=== PATIENT | male | born 1950 | race Hispanic/Latino ===

== ENCOUNTER 2017-06-12 14:48 | Inpatient (IN) | payer MEDICARE, MEDICAID ==
[2017-06-12] MEDS ORDERED: Vancomycin 1gm in NS 250ml 1 GM/250 ML BAG IVPB STA (15:32)
[2017-06-12] MEDS ORDERED: Piperacill/Tazo 4.5gm in NS 4.5 GM/100 ML BAG IVPB STA (15:32)
--- NOTE | 2017-06-12 15:38 | ED PDOC ---
Arrival/HPI - General Chief Complaint: Lower Extremity Problem/Injury Time Seen by Provider: 06/12/17 15:32 Historian: Patient - History of Present Illness Narrative History of Present Illness (Text): 06/12/17 15:36 pt p/w + 4 days onset of worsening foot/forefoot swelling/pain; pt with chronic foot/toe wounds under the care of Dr Manning (wound care) for few months. During routine evaluation today, expressed concern for patients wound today and instructed patient to come to ED for further eval/care/mgt; pt states over the last 4 days the pain is becoming worse with standing/movement, at most pain is 8 /10; pt at rest the pain is 3-4/10; pt states intermittently felt hot/cold/ sweaty; pt states no cp/sob/palpitations, no abd pain, no n/v, no numbness/ tingling, no urinary/bowel changes, no fall/trauma/sick contact, no travel; pt denied other complaint; pt is here for further eval. PCP: Dr Mckeon wound care/podiatry: Nigel Time/Duration: < week (4 days, but the right forefoot wound x months) Symptom Onset: Gradual Symptom Course: Worsening Quality: Tightness, Cramping Severity Level: 8, Severe Activities at Onset: Rest Context: Standing, Walking, Home Past Medical History - Provider Review Nursing Documentation Reviewed: Yes - Travel History Have you recently traveled outside [place] w/in the past 3 mons?: No - Past History Past History: No Previous - Infectious Disease Hx of Infectious Diseases: None - Cardiac Hx Hypertension: Yes - Pulmonary Hx Respiratory Disorders: No - HEENT Hx HEENT Disorder: No - Endocrine/Metabolic Hx Diabetes Mellitus Type 2: Yes - Genitourinary/Gynecological Hx Genitourinary Disorders: No - Psychiatric Hx Psychophysiologic Disorder: No Hx Substance Use: No - Surgical History Hx Orthopedic Surgery: Yes Other/Comment: BKA - Anesthesia Hx Anesthesia: Yes Hx Anesthesia Reactions: No Family/Social History - Physician Review Nursing Documentation Reviewed: Yes Family/Social History: No Known Family HX Smoking Status: Unknown If Ever Smoked Hx Alcohol Use: No Hx Substance Use: No Hx Substance Use Treatment: No Allergies/Home Meds Allergies/Adverse Reactions: Allergies tape Allergy (Uncoded 06/12/17 15:07) RASH Home Medications: Home Meds Medication Instructions Recorded Confirmed Aspirin [Ecotrin] 81 mg PO DAILY 06/12/17 06/12/17 Cholecalciferol (Vitamin D3) 2,000 unit PO DAILY 06/12/17 06/12/17 [Vitamin D3] Famotidine [Pepcid] 20 mg PO DAILY 06/12/17 06/12/17 Insulin Aspart/Insulin Aspar 100 units SC BID 06/12/17 06/12/17 [Novolog Mix 70/30 (70/30 units/ml)] Losartan/Hydrochlorothiazide 1 each PO DAILY 06/12/17 06/12/17 [Losartan-Hctz 100-12.5 mg Tab] Simvastatin [Zocor] 10 mg PO HS 06/12/17 06/12/17 Sitagliptin Phos/Metformin HCl 1 each PO DAILY 06/12/17 06/12/17 [Janumet 50-500 mg Tablet] Vitamin A Palmitate [Vitamin A] 10,000 unit PO QOTHERDAY 06/12/17 06/12/17 Review of Systems - Review of Systems Constitutional: Fatigue Eyes: Normal ENT: Normal Respiratory: Normal Cardiovascular: Normal Gastrointestinal: Normal Genitourinary Male: Normal Musculoskeletal: Other (right foot pain) Skin: Normal Neurological: Normal Endocrine: Normal Hemo/Lymphatic: Normal Physical Exam Vital Signs Reviewed: Yes Vital Signs Temp Pulse Resp BP Pulse Ox 06/12/17 16:27 100.6 F H 06/12/17 14:57 100.2 F H 102 H 20 136/65 96 Temperature: Febrile Blood Pressure: Normal Pulse: Tachycardic Respiratory Rate: Normal Appearance: Positive for: Well-Appearing, Uncomfortable, Other (alert/awake, GCS = 15, oriented x 3, NAD, cooperative, resting in bed, follows command with ease) Pain Distress: None Mental Status: Positive for: Alert and Oriented X 3 - Systems Exam Head: Present: Atraumatic, Normocephalic Pupils: Present: PERRL, Other (no nystagmus, no photophobia, sclera anicteric, visual field intact b/l) Extroacular Muscles: Present: EOMI Conjunctiva: Present: Normal Ears: Present: Normal Mouth: Present: Moist Mucous Membranes, Other (uvula/tongue are midline, no exudate/lesions, no drooling/stridor, intact dentitions) Pharnyx: Present: Normal Nose (External): Present: Atraumatic Nose (Internal): Present: Normal Inspection Neck: Present: Normal Range of Motion, Trachea Midline, Other (no step off, no nuchal rigidity, no meningeal signs). No: MIDLINE TENDERNESS Respiratory/Chest: Present: Clear to Auscultation, Good Air Exchange, Other ( CTA b/l, no w/r/r, no accessory muscle use noted, no tachypenia) Cardiovascular: Present: Regular Rate and Rhythm, Normal S1, S2. No: Murmurs Abdomen: Present: Normal Bowel Sounds, Other (well nourished male, no focal tenderness, no dickinson's sign, no mcburney's point tenderness) Back: Present: Normal Inspection, CVA Tenderness, Decubitus Ulcer. No: Midline Tenderness Upper Extremity: Present: Normal Inspection, Normal ROM, NORMAL PULSES, Neurovascularly Intact, Capillary Refill < 2s Lower Extremity: Present: Normal ROM, Capillary Refill < 2 s, Other (+ left BKA ; right forefoot swelling with skin erythema noted, + right 3rd toe/5th toe covered with bandages with distal end of the bandages with noted slight yellow discharge, no gross bleeding; no blisters/ulcerations/pustules noted, decr ROM; strength 5-/5 intact b/l) Neurological: Present: GCS=15, CN II-XII Intact, Speech Normal Skin: Present: Warm, Normal Color, Other (cap refill < 1sec, no ulcerations, no petechiae) Psychiatric: Present: Alert, Oriented x 3 Medical Decision Making ED Course and Treatment: 06/12/17 15:36 Impression: r/o sepsis, r/o infected toes/cellulitis i have consider all the differential diagnosis regarding pt's chief medical complaints/clinical findings, including but are not limited to: r/o sepsis, r/o cellulitis/infected toes A/P: right foot wound, fever - labs - iv - xray - cultures - observe - supportive care 06/12/17 16:59 pt is currently comfortable resting on the bed pt is made aware of his medical results agrees with admission I spoke with Dr Keller, second rigger for pt's PCP, made aware of pt's ED presentation, agrees with ED mgt/txt, agrees with admission paging pt's podiatrists/wound care specialists 06/12/17 17:[address] Manning, pt's wound care/podiatrists, agrees with ED mgt/txt, will continue his consult as patient is admitted to the hospital/with Dr Keller Re-evaluation Time: 16:59 Reassessment Condition: Improving,but remains with symptoms - Lab Interpretations Lab Results: 06/12/17 15:50 06/12/17 15:50 Lab Results 06/12/17 16:10: Urine Color Yellow, Urine Appearance Clear, Urine pH 6.0, Ur Specific [place] 1.020, Urine Protein Negative, Urine Glucose (UA) Negative, Urine Ketones Negative, Urine Blood Small H, Urine Nitrate Negative, Urine Bilirubin Negative, Urine Urobilinogen 0.2, Ur Leukocyte Esterase Negative, Urine RBC Pending, Urine WBC Pending 06/12/17 15:50: Sodium 139, Chloride 101, Potassium 4.1, Carbon Dioxide 30, Anion Gap 13, BUN 27 H, Creatinine 1.2, Est GFR ( Amer) > 60, Est GFR ( Non-Af Amer) > 60, Random Glucose 129 H, Calcium 9.4, Phosphorus 3.0, Magnesium 1.9, Total Bilirubin 0.6, AST 22, ALT 26, Alkaline Phosphatase 78, Total Protein 6.6, Albumin 3.5, Globulin 3.2, Albumin/Globulin Ratio 1.1 06/12/17 15:50: pO2 44, VBG pH 7.39, VBG pCO2 50.0, VBG HCO3 30.3 H, VBG Total CO2 31.8 H, VBG O2 Sat (Calc) 85.0 H, VBG Base Excess 4.2 H, VBG Potassium 4.2, Sodium 137.0, Chloride 103.0, Glucose 137 H, Lactate 0.9, FiO2 21.0, Venous Blood Potassium 4.2 06/12/17 15:50: WBC 9.8, RBC 4.60, Hgb 13.2 L, Hct 40.1 L, MCV 87.2, MCH 28.7, MCHC 32.9, RDW 13.7, Plt Count 150, MPV 11.2 H, Gran % 83.1 H, Lymph % (Auto) 8.0 L, [place] % (Auto) 7.4 H, Eos % (Auto) 1.3 L, Baso % (Auto) 0.2, Gran # 8.15 H , Lymph # (Auto) 0.8 L, [place] # (Auto) 0.7 H, Eos # (Auto) 0.1, Baso # (Auto) 0.02, ESR Pending I have reviewed the lab results: Yes Interpretation: Abnormal lab values (mildly elevated ESR/GLUC) - RAD Interpretation Narrative RAD Interpretations (Text): 06/12/17 17:11 no acute fx/dislocations noted; + DJD; no evidence of gas pockets (unlikely osteo) Radiology Orders: 06/12/17 15:34 FOOT RIGHT 3 VIEWS ROUTINE [RAD] Stat Church Worker: ED Physician, Radiologist - Medication Orders Current Medication Orders: Vancomycin HCl (Vancomycin 1gm) 1 gm in 250 mls @ 167 mls/hr IVPB STAT STA PRN Reason: Protocol Stop: 06/12/17 17:01 Last Admin: 06/12/17 16:29 Dose: 167 mls/hr eMAR Start Stop Document 06/12/17 16:29 MS (Rec: 06/12/17 16:29 MS [id number]) Intravenous Solution Start Date 06/12/17 Start Time 16:29 End Date 06/12/17 End time 18:00 Total Infusion Time 91 Discontinued Medications Acetaminophen (Tylenol 325mg Tab) 650 mg PO STAT STA Stop: 06/12/17 15:39 Last Admin: 06/12/17 16:27 Dose: 650 mg MAR Pain/Vitals Document 06/12/17 16:27 MS (Rec: 06/12/17 16:28 MS [id number]) Pain Reassessment Is This A Pain ReAssessment? No Sleep Is patient sleeping during reassessment? No Presence of Pain Presence of Pain No Vitals Temperature (97.6 F-99.6 F) 100.6 F Temperature Source Oral Piperacillin Sod/Tazobactam Sod (Zosyn 4.5 Gm In Ns 100ml) 4.5 gm in 100 mls @ 200 mls/hr IVPB STAT STA PRN Reason: Protocol Stop: 06/12/17 16:01 Last Admin: 06/12/17 15:40 Dose: 200 mls/hr eMAR Start Stop Document 06/12/17 15:40 MS (Rec: 06/12/17 15:55 MS [id number]) Intravenous Solution Start Date 06/12/17 Start Time 15:55 End Date 06/12/17 End time 16:25 Total Infusion Time 30 Disposition/Present on Arrival - Present on Arrival Any Indicators Present on Arrival: No History of DVT/PE: No History of Uncontrolled Diabetes: Yes Urinary Catheter: No History of Decub. Ulcer: No History Surgical Site Infection Following: Orthopedic Procedures - Disposition Have Diagnosis and Disposition been Completed?: Yes Diagnosis: Cellulitis in diabetic foot, Foot pain, PVD (peripheral vascular disease) Disposition: HOSPITALIZED Disposition Time: 17:00 Patient Plan: Admission Condition: STABLE Discharge Instructions (ExitCare): Cellulitis (ED) Referrals: Nicolas Gil DPM [Primary Care Provider] - Follow up with primary Forms: [employer] (Macedonian)
[2017-06-12 16:33] LABS: BASO # 0.02 K/mm3 (0.0-2.0); BASO % 0.2 % (0.0-3.0); EOS # 0.1 (0.0-0.7); EOS % 1.3 % (1.5-5.0); GRAN # 8.15 (1.4-6.5); GRAN % 83.1 % (50.0-68.0); HEMOGLOBIN 13.2 g/dL (14.0-18.0); LYMPH # 0.8 (1.2-3.4); MEAN CELL VOLUME 87.2 fl (80.0-105.0); MEAN CORPUSCULAR HEMOGLOBIN 28.7 pg (25.0-35.0); MEAN CORPUSCULAR HGB CONC 32.9 g/dl (31.0-37.0); MEAN PLATELET VOLUME 11.2 fl (7.0-11.0); MONO # 0.7 (0.1-0.6); MONO % 7.4 % (1.0-6.0); RBC 4.6 10^6/uL (3.5-6.1); RED CELL DISTRIBUTION WIDTH 13.7 % (11.5-14.5); VENOUS BLOOD GAS BASE EXCESS 4.2 mmol/L (0.0-2.0); VENOUS BLOOD GAS PO2 44 mm/Hg (30-55); VENOUS BLOOD PH 7.39 (7.32-7.43); WHITE BLOOD COUNT 9.8 10^3/ul (4.5-11.0)
[2017-06-12 16:33] LABS: URINE BILIRUBIN NEGATIVE (NEGATIVE); URINE BLOOD SMALL (NEGATIVE); URINE GLUCOSE (UA) NEGATIVE (NEGATIVE); URINE LEUKOCYTE ESTERASE NEGATIVE Leu/uL (NEGATIVE); URINE PROTEIN NEGATIVE mg/dL (<30 mg/dL); URINE UROBILINOGEN 0.2 E.U./dL (<1 E.U./dL)
[2017-06-12 16:38] LABS: URINE APPEARANCE CLEAR (CLEAR); URINE COLOR YELLOW (YELLOW)
[2017-06-12 16:43] LABS: ALB/GLOB RATIO 1.1 (1.1-1.8); ALBUMIN 3.5 g/dL (3.0-4.8); ALT/SGPT 26 U/L (7-56); AST/SGOT 22 U/L (17-59); BLOOD UREA NITROGEN 27 mg/dL (7-21); CALCIUM 9.4 mg/dL (8.4-10.5); GFR AFRICAN-AMERICAN > 60; GFR NON-AFRICAN AMERICAN > 60
[2017-06-12 17:12] LABS: URINE EPITHELIAL CELLS 0 - 2 /hpf (0-5); URINE WBC 0 - 2 /hpf (0-6)
[2017-06-12] MEDS ORDERED: Non Formulary Medication (Insulin Aspart/Insulin Aspar [Novolog Mix 70/30 (70/30 Units/Ml) SC SCH (18:30)
[2017-06-12 20:35] VITALS: BMI 23.3
[2017-06-12] MEDS: Piperacillin/Tazobact 3.375 gm 100 ML IVPB SCH (21:40)
[2017-06-12] MEDS ORDERED: SIMVASTATIN 10 MG PO SCH (22:00)
[2017-06-12] MEDS: Insulin Lispro (humaLOG) MEDIUM Coverage SC SCH (22:35)
[2017-06-12] MEDS: Insulin Lispro (humaLOG) MIX 75/25(10 ml) SC SCH (22:40)
--- NOTE | 2017-06-13 02:34 | HP ---
HISTORY OF PRESENT ILLNESS: The patient is 66 years old who is sent to emergency room by Dr. Gil when he came in the wound center. Patient has been going to wound care center for a couple of months, but his wound has been getting worse, so he is being admitted for IV antibiotic, possible angioplasty for PVD. Patient states, for the last 3 to 4 days, the pain has been getting worse especially when he walks or stands. Denies any fever or chills. No nausea or vomiting. No diarrhea. No abdominal pain. No urine or bowel problems. PAST MEDICAL HISTORY: 1. Significant for insulin-dependent diabetes. 2. Severe peripheral vascular disease. 3. Hypertension. ALLERGIES: HE IS ALLERGIC TO TAPE. MEDICATIONS AT HOME: He is on vitamin D, aspirin 81 daily, simvastatin 10 mg daily, losartan 100 mg daily, insulin NovoLog 100 units twice a day, Pepcid 20 mg daily, and metformin 50/500 b.i.d. SOCIAL HISTORY: He lives with his family. Denies smoking, drinking, or alcohol use. REVIEW OF SYSTEMS: Significant for right foot pain and swelling. PHYSICAL EXAMINATION: GENERAL: He is awake, alert, oriented, and communicative. VITAL SIGNS: Temperature 100.2, pulse 102, respirations 20, blood pressure 136/65. LUNGS: Bilateral good air flow. No rhonchi or crackles. HEART: S1, S2 audible. ABDOMEN: Soft, nontender. No rebound. No guarding. NEUROLOGIC: He is awake, alert, oriented, able to communicate. EXTREMITIES: His right foot is in the dressing. LABORATORY DATA: WBC 9.8, hemoglobin 13, hematocrit 40, platelets 150. Chemistry: Sodium 139, potassium 4.1, chloride 101, CO2 of 30, BUN 27, creatinine 1.2, blood sugar of 129. LFTs are within normal limits. Urinalysis is unremarkable. ASSESSMENT: 1. Right foot cellulitis. 2. Insulin-dependent diabetes. 3. Hypertension. 4. Hyperlipidemia. PLAN: The patient is going to be admitted. We will start him on IV antibiotics. Resume his medication and I will get Dr. Gil for consult. I will get Dr. [place] consulted too and we will request Dr. Murcia to evaluate the patient. Berhane Keller MD [facility] # [id number]
[2017-06-13] MEDS: Piperacillin/Tazobact 3.375 gm 100 ML IVPB SCH ×3 (05:36→22:42)
[2017-06-13 07:30] LABS: BASO # 0.01 K/mm3 (0.0-2.0); BASO % 0.1 % (0.0-3.0); EOS # 0.3 (0.0-0.7); EOS % 3.9 % (1.5-5.0); GRAN # 6.15 (1.4-6.5); GRAN % 74.8 % (50.0-68.0); HEMOGLOBIN 11.5 g/dL (14.0-18.0); LYMPH # 1.1 (1.2-3.4); LYMPH % 12.9 % (22.0-35.0); MEAN CELL VOLUME 86.4 fl (80.0-105.0); MEAN CORPUSCULAR HEMOGLOBIN 27.4 pg (25.0-35.0); MEAN CORPUSCULAR HGB CONC 31.8 g/dl (31.0-37.0); MEAN PLATELET VOLUME 11.5 fl (7.0-11.0); MONO # 0.7 (0.1-0.6); MONO % 8.3 % (1.0-6.0); RBC 4.19 10^6/uL (3.5-6.1); RED CELL DISTRIBUTION WIDTH 13.6 % (11.5-14.5); WHITE BLOOD COUNT 8.2 10^3/ul (4.5-11.0)
[2017-06-13] MEDS: Insulin Lispro (humaLOG) MEDIUM Coverage SC SCH ×3 (07:34→22:43)
[2017-06-13 08:00] LABS: ALBUMIN 3.1 g/dL (3.0-4.8); ALT/SGPT 27 U/L (7-56); AST/SGOT 20 U/L (17-59); BLOOD UREA NITROGEN 22 mg/dL (7-21); CALCIUM 8.9 mg/dL (8.4-10.5); GFR AFRICAN-AMERICAN > 60; GFR NON-AFRICAN AMERICAN > 60
[2017-06-13 08:01] LABS: FREE T4 1.14 ng/dL (0.78-2.19)
--- NOTE | 2017-06-13 08:27 | RAD ---
PROCEDURE: Right Foot Radiographs. HISTORY: r/o osteo, r/o fx COMPARISON: None. FINDINGS: BONES: There has been amputation of the tip of the 3rd toe. There is no evidence of acute osteomyelitis JOINTS: Normal. SOFT TISSUES: Normal. OTHER FINDINGS: None. IMPRESSION: No acute findings
[2017-06-13] MEDS: Vancomycin 1gm in NS 250ml 1 GM/250 ML BAG IVPB SCH ×2 (08:40→18:20)
[2017-06-13] MEDS ORDERED: LOSARTAN PO SCH ×2 (10:00)
[2017-06-13] MEDS ORDERED: SITAGLIPTIN PHOS PO SCH (10:00)
[2017-06-13] MEDS ORDERED: [UNRECOGNIZED DRUG - OTHER] PO SCH (10:00)
[2017-06-13] MEDS ORDERED: [UNRECOGNIZED DRUG - OTHER] PO SCH (10:00)
[2017-06-13] MEDS ORDERED: METFORMIN HCL PO SCH (10:00)
[2017-06-13] MEDS ORDERED: HYDROCHLOROTHIAZIDE PO SCH ×2 (10:00)
[2017-06-13] MEDS ORDERED: [UNRECOGNIZED DRUG - OTHER] PO SCH (10:00)
[2017-06-13] MEDS: Insulin Lispro (humaLOG) MIX 75/25(10 ml) SC SCH ×2 (10:43→22:42)
--- NOTE | 2017-06-13 14:09 | PN ---
DATE: SUBJECTIVE: The patient is 66-year-old, seen and examined, doing well, sitting in chair. No nausea, vomiting or diarrhea. OBJECTIVE: VITAL SIGNS: Had fever of 100.6 yesterday, afebrile today, pulse 78, respirations 20, blood pressure 125/66. LUNGS: Bilateral good airflow. No rhonchi or crackle. HEART: S1, S2, audible. ABDOMEN: Soft, nontender. No rebound. No guarding. NEUROLOGIC: Patient is awake, alert, oriented, communicative. LABORATORY DATA: WBC is 8.2, hemoglobin 11.5, hematocrit 36.2, platelets 141. Chemistry: Sodium 139, potassium 3.7, chloride 103, CO2 29, BUN 22, creatinine 1.2, blood sugar of 180. ESR is 75. Urinalysis is unremarkable. ASSESSMENT: 1. Insulin-dependent diabetes. 2. Severe peripheral vascular disease. 3. Status post left below-knee amputation. 4. Right forefoot cellulitis. 5. Hyperlipidemia. PLAN: Currently patient is on Zosyn. Patient is on vancomycin. Local wound care is being done by Dr. Gil. Request Dr. Rosa for Cardiology evaluation for possible right leg angioplasty. Dr. Davis will also be consulted for vascular intervention. Berhane Keller MD
--- NOTE | 2017-06-13 15:04 | CP.PCM.CON ---
<Thomas Zamora - Last Filed: 06/13/17 15:37> History of Present Illness - History of Present Illness History of Present Illness: Podiatry consult note- Dr. Zeng 66 y.o male with PMH including DM with podiatry consult for right foot ulcerations. Patient is known to wound care and Dr. Gil. 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 Patient reports that 4 days ago he noticed swelling to his right foot. He reports the right foot felt sore. Worse with ambulating. Patient reports he does a lot of walking. Patient denies nausea, vomiting, shortness of breath, chest pain or chills. Reports did not know that he has a right 5th digit ulceration. Past Patient History - Infectious Disease Hx of Infectious Diseases: None - Past Social History Smoking Status: Former Smoker - CARDIAC Hx Hypertension: Yes - PULMONARY Hx Respiratory Disorders: No - HEENT Hx HEENT Problems: No - ENDOCRINE/METABOLIC Hx Diabetes Mellitus Type 2: Yes - MUSCULOSKELETAL/RHEUMATOLOGICAL Hx Falls: Yes - GENITOURINARY/GYNECOLOGICAL Hx Genitourinary Disorders: No - PSYCHIATRIC Hx Psychophysiologic Disorder: No Hx Substance Use: No - SURGICAL HISTORY Hx Orthopedic Surgery: Yes Other/Comment: BKA - ANESTHESIA Hx Anesthesia: Yes Hx Anesthesia Reactions: No Meds Allergies/Adverse Reactions: Allergies Allergy/AdvReac Type Severity Reaction Status Date / Time tape Allergy RASH Uncoded 06/12/17 15:07 - Medications Medications: Current Medications Aspirin (Ecotrin) 81 mg PO DAILY [facility] Last Admin: 06/13/17 10:29 Dose: 81 mg Atorvastatin Calcium (Lipitor) 10 mg PO HS [facility] Last Admin: 06/12/17 21:41 Dose: 10 mg Famotidine (Pepcid) 20 mg PO DAILY [facility] Last Admin: 06/13/17 10:30 Dose: 20 mg Hydrochlorothiazide (Microzide) 12.5 mg PO DAILY [facility] Last Admin: 06/13/17 10:29 Dose: 12.5 mg Piperacillin Sod/Tazobactam Sod (Zosyn 3.375 In Ns 100ml) 100 mls @ 200 mls/hr IVPB Q8 [facility] PRN Reason: Protocol Stop: 06/19/17 22:01 Last Admin: 06/13/17 13:33 Dose: 200 mls/hr Vancomycin HCl (Vancomycin 1gm) 1 gm in 250 mls @ 167 mls/hr IVPB Q12H [facility] PRN Reason: Protocol Last Admin: 06/13/17 08:40 Dose: 167 mls/hr Insulin Human Lispro (Humalog Med) 0 units SC ACHS [facility] PRN Reason: Protocol Last Admin: 06/13/17 12:45 Dose: 1 units Insulin Lispro Protam/Lispro Human (Humalog Mix 75/25) 30 units SC QAM [facility] Last Admin: 06/13/17 10:43 Dose: 30 units Insulin Lispro Protam/Lispro Human (Humalog Mix 75/25) 20 units SC HS [facility] Last Admin: 06/12/17 22:40 Dose: 20 units Losartan Potassium (Cozaar) 100 mg PO DAILY [facility] Last Admin: 06/13/17 10:29 Dose: 100 mg Metformin HCl (Glucophage) 500 mg PO DAILY [facility] Last Admin: 06/13/17 10:29 Dose: 500 mg Metoprolol Tartrate (Lopressor) 25 mg PO BID [facility] Sitagliptin Phosphate (Januvia) 50 mg PO DAILY [facility] Last Admin: 06/13/17 10:29 Dose: 50 mg Physical Exam - Constitutional Appears: Well, Non-toxic, No Acute Distress - Extremities Exam Extremities exam: Negative for: calf tenderness Additional comments: Vasc: DP and PT nonpalpable, temperature cool to cool, edema noted to the right LE, CFT delayed to the digits Ortho: pain and tenderness with palpation to the entire right foot, more sensitive surrounding ulcerations Neuro: protective and gross sensation diminished Derm: ulceration located on the plantar aspect of right 3rd digit measuring approximately 2 x 2 x.1 and ulceration located on the medial aspect of the 5th digit measuring 1.5 x 1.5 x .1, all wound base is fibrotic/granular with serous drainage noted from ulceration, no probe to bone, no undermining, and no tunneling, erythema noted to the surrounding periwound - Neurological Exam Neurological exam: Alert, Oriented x3 - Psychiatric Exam Psychiatric exam: Normal Affect, Normal Mood Results - Vital Signs Recent Vital Signs: Last Vital Signs Temp 98.4 F 06/13/17 08:38 Pulse 78 06/13/17 08:38 Resp 20 06/13/17 08:38 BP 125/66 06/13/17 08:38 Pulse Ox 99 06/13/17 08:38 - Labs Result Diagrams: 06/13/17 07:00 06/13/17 07:00 Labs: Laboratory Results - last 24 hr 06/12/17 06/12/17 06/13/17 20:37 22:14 07:00 WBC 8.2 RBC 4.19 Hgb 11.5 L Hct 36.2 L MCV 86.4 MCH 27.4 MCHC 31.8 RDW 13.6 Plt Count 141 MPV 11.5 H Gran % 74.8 H Lymph % (Auto) 12.9 L [place] % (Auto) 8.3 H Eos % (Auto) 3.9 Baso % (Auto) 0.1 Gran # 6.15 Lymph # (Auto) 1.1 L [place] # (Auto) 0.7 H Eos # (Auto) 0.3 Baso # (Auto) 0.01 Sodium Potassium Chloride Carbon Dioxide Anion Gap BUN Creatinine Est GFR ( Amer) Est GFR (Non-Af Amer) POC Glucose (mg/dL) 71 145 H Random Glucose Calcium Total Bilirubin AST ALT Alkaline Phosphatase Total Protein Albumin Globulin Albumin/Globulin Ratio Free T4 TSH 3rd Generation 06/13/17 06/13/17 06/13/17 07:00 07:00 07:25 WBC RBC Hgb Hct MCV MCH MCHC RDW Plt Count MPV Gran % Lymph % (Auto) [place] % (Auto) Eos % (Auto) Baso % (Auto) Gran # Lymph # (Auto) [place] # (Auto) Eos # (Auto) Baso # (Auto) Sodium 139 Potassium 3.7 Chloride 103 Carbon Dioxide 29 Anion Gap 11 BUN 22 H Creatinine 1.2 Est GFR ( Amer) > 60 Est GFR (Non-Af Amer) > 60 POC Glucose (mg/dL) 140 H Random Glucose 130 H Calcium 8.9 Total Bilirubin 0.9 AST 20 ALT 27 Alkaline Phosphatase 62 Total Protein 6.0 Albumin 3.1 Globulin 3.0 Albumin/Globulin Ratio 1.0 L Free T4 1.14 TSH 3rd Generation 1.50 06/13/17 11:28 WBC RBC Hgb Hct MCV MCH MCHC RDW Plt Count MPV Gran % Lymph % (Auto) [place] % (Auto) Eos % (Auto) Baso % (Auto) Gran # Lymph # (Auto) [place] # (Auto) Eos # (Auto) Baso # (Auto) Sodium Potassium Chloride Carbon Dioxide Anion Gap BUN Creatinine Est GFR ( Amer) Est GFR (Non-Af Amer) POC Glucose (mg/dL) 180 H Random Glucose Calcium Total Bilirubin AST ALT Alkaline Phosphatase Total Protein Albumin Globulin Albumin/Globulin Ratio Free T4 TSH 3rd Generation Assessment & Plan - Assessment and Plan (Free Text) Assessment: 66 y.o male with PMH including DM with right foot non healing ulcerations. Plan: Patient examined and evaluated with attending at bedside Discussed plan in detail with attending Charts, labs, vitals reviewed Cleansed ulcerations with saline, dressed maxosorb, and paper tape. Patient reports no allergies to paper tape but other tapes X-ray shows no acute OM Vascular consult appreciated Resting ABIs right .64 on 04/25/17 -left BKA Reordered ABIs ESR in the AM Ordered MRI to r/o OM Wound culture taken- pending results c/w abx Podiatry will continue to follow while in house <Beatriz Zeng - Last Filed: 06/16/17 15:57> Meds - Medications Medications: Current Medications Aspirin (Ecotrin) 81 mg PO DAILY [facility] Last Admin: 06/16/17 09:28 Dose: 81 mg Atorvastatin Calcium (Lipitor) 10 mg PO HS [facility] Last Admin: 06/15/17 21:45 Dose: 10 mg Famotidine (Pepcid) 20 mg PO DAILY [facility] Last Admin: 06/16/17 09:28 Dose: 20 mg Hydrochlorothiazide (Microzide) 12.5 mg PO DAILY [facility] Last Admin: 06/16/17 09:28 Dose: 12.5 mg Piperacillin Sod/Tazobactam Sod (Zosyn 3.375 In Ns 100ml) 100 mls @ 200 mls/hr IVPB Q8 [facility] PRN Reason: Protocol Stop: 06/19/17 22:01 Last Admin: 06/16/17 13:39 Dose: 200 mls/hr Vancomycin HCl (Vancomycin 1gm) 1 gm in 250 mls @ 167 mls/hr IVPB Q12H [facility] PRN Reason: Protocol Last Admin: 06/16/17 06:18 Dose: 167 mls/hr Insulin Human Lispro (Humalog Med) 0 units SC ACHS [facility] PRN Reason: Protocol Last Admin: 06/16/17 11:39 Dose: Not Given Insulin Lispro Protam/Lispro Human (Humalog Mix 75/25) 30 units SC QAM [facility] Last Admin: 06/16/17 09:31 Dose: Not Given Insulin Lispro Protam/Lispro Human (Humalog Mix 75/25) 20 units SC HS [facility] Last Admin: 06/15/17 22:13 Dose: 20 units Losartan Potassium (Cozaar) 100 mg PO DAILY [facility] Last Admin: 06/16/17 09:29 Dose: 100 mg Metformin HCl (Glucophage) 500 mg PO DAILY [facility] Last Admin: 06/16/17 09:28 Dose: 500 mg Metoprolol Tartrate (Lopressor) 25 mg PO BID [facility] Last Admin: 06/16/17 09:28 Dose: 25 mg Oxycodone/Acetaminophen (Percocet 5/325 Mg Tab) 1 tab PO Q6H [facility] PRN Reason: Pain, moderate (4-7) Stop: 06/17/17 13:38 Last Admin: 06/16/17 14:42 Dose: 1 tab Sitagliptin Phosphate (Januvia) 50 mg PO DAILY [facility] Last Admin: 06/16/17 09:28 Dose: 50 mg Results - Vital Signs Recent Vital Signs: Last Vital Signs Temp 97.8 F 06/16/17 06:00 Pulse 64 06/16/17 09:28 Resp 20 06/16/17 06:00 BP 125/68 06/16/17 09:28 Pulse Ox 95 06/16/17 06:00 - Labs Result Diagrams: 06/13/17 07:00 06/13/17 07:00 Labs: Laboratory Results - last 24 hr 06/15/17 06/15/17 06/16/17 16:23 21:52 02:08 POC Glucose (mg/dL) 149 H 201 H 141 H 06/16/17 06/16/17 08:17 11:20 POC Glucose (mg/dL) 103 153 H Attending/Attestation - Attestation I have personally seen and examined this patient.: Yes I have fully participated in the care of the patient.: Yes I have reviewed all pertinent clinical information: Yes
--- NOTE | 2017-06-13 15:09 | CP.PCM.CON ---
History of Present Illness - History of Present Illness History of Present Illness: Surgery Consult Note: Reason for consult: PVD 66 M with PMH left BKA, PVD, DM2, HTN, presents for right lower extremity ulceration. Pt states that it has been ongoing for past 2-3 months. He states that he was given orthopedic shoes to wear, which might have been too small for him. It then gave him an ulceration at right 5th toe and 3rd toe. Reports that his wounds were being treated outpt with Podiatry, finished a course of antibiotics (does not remember name), and the ulcers were partially healing. Pt also underwent an angiogram of right leg with Dr [place] 3-4 weeks ago, and reports that he said that pt "needed a distal bypass surgery." Pt was to follow up with Dr Praneeth pathak after clearance from Cardio. However, for past few days prior to arrival to [facility], he reports that right foot pain and swelling got worse , and he had difficulty ambulating on it, requiring him to come to ED. Reports mildly decreased sensation and claudication, but states that it chronic. Denies fever, chills, nausea, vomiting, cough, cp, sob, abdominal pain, wound discharge, loss of motor strength. BRYN (04/2017) showed moderately abnormal right BRYN at rest. 12 point ROS obtained and negative, except as per HPI. PCP: Dr Mckeon PMH: DM2 - insulin dependent, Severe PVD, HTN PSH: left BKA (5 years ago at [facility]) - has left leg prosthesis , broken jaw many years ago All: tape - rash FH: denies SH: lives with family. Uses wheelchair or cane at home. Denies current smoking, drinking, alcohol use. Previously a cigar smoker. Home meds: See MAR Past Patient History - Infectious Disease Hx of Infectious Diseases: None - Past Social History Smoking Status: Former Smoker - CARDIAC Hx Hypertension: Yes - PULMONARY Hx Respiratory Disorders: No - HEENT Hx HEENT Problems: No - ENDOCRINE/METABOLIC Hx Diabetes Mellitus Type 2: Yes - MUSCULOSKELETAL/RHEUMATOLOGICAL Hx Falls: Yes - GENITOURINARY/GYNECOLOGICAL Hx Genitourinary Disorders: No - PSYCHIATRIC Hx Psychophysiologic Disorder: No Hx Substance Use: No - SURGICAL HISTORY Hx Orthopedic Surgery: Yes Other/Comment: BKA - ANESTHESIA Hx Anesthesia: Yes Hx Anesthesia Reactions: No Meds Allergies/Adverse Reactions: Allergies Allergy/AdvReac Type Severity Reaction Status Date / Time tape Allergy RASH Uncoded 06/12/17 15:07 - Medications Medications: Current Medications Aspirin (Ecotrin) 81 mg PO DAILY [facility] Last Admin: 06/13/17 10:29 Dose: 81 mg Atorvastatin Calcium (Lipitor) 10 mg PO HS [facility] Last Admin: 06/12/17 21:41 Dose: 10 mg Famotidine (Pepcid) 20 mg PO DAILY [facility] Last Admin: 06/13/17 10:30 Dose: 20 mg Hydrochlorothiazide (Microzide) 12.5 mg PO DAILY [facility] Last Admin: 06/13/17 10:29 Dose: 12.5 mg Piperacillin Sod/Tazobactam Sod (Zosyn 3.375 In Ns 100ml) 100 mls @ 200 mls/hr IVPB Q8 [facility] PRN Reason: Protocol Stop: 06/19/17 22:01 Last Admin: 06/13/17 13:33 Dose: 200 mls/hr Vancomycin HCl (Vancomycin 1gm) 1 gm in 250 mls @ 167 mls/hr IVPB Q12H [facility] PRN Reason: Protocol Last Admin: 06/13/17 08:40 Dose: 167 mls/hr Insulin Human Lispro (Humalog Med) 0 units SC ACHS [facility] PRN Reason: Protocol Last Admin: 06/13/17 12:45 Dose: 1 units Insulin Lispro Protam/Lispro Human (Humalog Mix 75/25) 30 units SC QAM [facility] Last Admin: 06/13/17 10:43 Dose: 30 units Insulin Lispro Protam/Lispro Human (Humalog Mix 75/25) 20 units SC HS [facility] Last Admin: 06/12/17 22:40 Dose: 20 units Losartan Potassium (Cozaar) 100 mg PO DAILY [facility] Last Admin: 06/13/17 10:29 Dose: 100 mg Metformin HCl (Glucophage) 500 mg PO DAILY [facility] Last Admin: 06/13/17 10:29 Dose: 500 mg Metoprolol Tartrate (Lopressor) 25 mg PO BID [facility] Sitagliptin Phosphate (Januvia) 50 mg PO DAILY [facility] Last Admin: 06/13/17 10:29 Dose: 50 mg Physical Exam - Constitutional Appears: Non-toxic, No Acute Distress - Head Exam Head Exam: ATRAUMATIC, NORMOCEPHALIC - Eye Exam Eye Exam: EOMI, PERRL. absent: Conjunctival injection, Nystagmus, Scleral icterus Pupil Exam: NORMAL ACCOMODATION, PERRL. absent: Fixed, Irregular, Miosis, Unequal - ENT Exam ENT Exam: Mucous Membranes Moist - Neck Exam Neck exam: Positive for: Full Rom - Respiratory Exam Respiratory Exam: Clear to Auscultation Bilateral, NORMAL BREATHING PATTERN. absent: Rales, Rhonchi, Wheezes - Cardiovascular Exam Cardiovascular Exam: RRR, +S1, +S2. absent: Systolic Murmur - GI/Abdominal Exam GI & Abdominal Exam: Normal Bowel Sounds, Soft. absent: Distended, Guarding, Rebound, Rigid, Tenderness - Extremities Exam Extremities exam: Positive for: tenderness. Negative for: calf tenderness Additional comments: Right Lower extremity: right posterior tibial and dorsalis pedis pulses present (using doppler). Right popliteal and femoral pulse palpable. Left femoral pulse present (using doppler). strength 5/5, sensation decreased (compared to upper right foot). mild discoloration noted of right lower foot. - Expanded Lower Extremities Exam Right Foot/Toe exam: erythema, full ROM, swelling (mild), tenderness (mild TTP on right foot, delphine 3rd and 5th digit). absent: crepitus, laceration, puncture wound Neuro vacular tendon exam: absent: extremity cold to touch, motor deficit - Back Exam Back exam: NORMAL INSPECTION - Neurological Exam Neurological exam: Alert, Oriented x3 - Psychiatric Exam Psychiatric exam: Normal Affect, Normal Mood - Skin Skin Exam: Dry, Warm Results - Vital Signs Recent Vital Signs: Last Vital Signs Temp 98.4 F 06/13/17 08:38 Pulse 78 06/13/17 08:38 Resp 20 06/13/17 08:38 BP 125/66 06/13/17 08:38 Pulse Ox 99 06/13/17 08:38 - Labs Result Diagrams: 06/13/17 07:00 06/13/17 07:00 Labs: Laboratory Results - last 24 hr 06/12/17 06/12/17 06/13/17 20:37 22:14 07:00 WBC 8.2 RBC 4.19 Hgb 11.5 L Hct 36.2 L MCV 86.4 MCH 27.4 MCHC 31.8 RDW 13.6 Plt Count 141 MPV 11.5 H Gran % 74.8 H Lymph % (Auto) 12.9 L Sutter % (Auto) 8.3 H Eos % (Auto) 3.9 Baso % (Auto) 0.1 Gran # 6.15 Lymph # (Auto) 1.1 L Sutter # (Auto) 0.7 H Eos # (Auto) 0.3 Baso # (Auto) 0.01 Sodium Potassium Chloride Carbon Dioxide Anion Gap BUN Creatinine Est GFR ( Amer) Est GFR (Non-Af Amer) POC Glucose (mg/dL) 71 145 H Random Glucose Calcium Total Bilirubin AST ALT Alkaline Phosphatase Total Protein Albumin Globulin Albumin/Globulin Ratio Free T4 TSH 3rd Generation 06/13/17 06/13/17 06/13/17 07:00 07:00 07:25 WBC RBC Hgb Hct MCV MCH MCHC RDW Plt Count MPV Gran % Lymph % (Auto) Sutter % (Auto) Eos % (Auto) Baso % (Auto) Gran # Lymph # (Auto) Sutter # (Auto) Eos # (Auto) Baso # (Auto) Sodium 139 Potassium 3.7 Chloride 103 Carbon Dioxide 29 Anion Gap 11 BUN 22 H Creatinine 1.2 Est GFR ( Amer) > 60 Est GFR (Non-Af Amer) > 60 POC Glucose (mg/dL) 140 H Random Glucose 130 H Calcium 8.9 Total Bilirubin 0.9 AST 20 ALT 27 Alkaline Phosphatase 62 Total Protein 6.0 Albumin 3.1 Globulin 3.0 Albumin/Globulin Ratio 1.0 L Free T4 1.14 TSH 3rd Generation 1.50 06/13/17 11:28 WBC RBC Hgb Hct MCV MCH MCHC RDW Plt Count MPV Gran % Lymph % (Auto) Sutter % (Auto) Eos % (Auto) Baso % (Auto) Gran # Lymph # (Auto) Sutter # (Auto) Eos # (Auto) Baso # (Auto) Sodium Potassium Chloride Carbon Dioxide Anion Gap BUN Creatinine Est GFR ( Amer) Est GFR (Non-Af Amer) POC Glucose (mg/dL) 180 H Random Glucose Calcium Total Bilirubin AST ALT Alkaline Phosphatase Total Protein Albumin Globulin Albumin/Globulin Ratio Free T4 TSH 3rd Generation Assessment & Plan - Assessment and Plan (Free Text) Assessment: 66 year old male with PMH PVD, DM2, HTN, presents for right foot ulceration/ cellulitis. Vascular surgery consulted for PVD: - Recommend arterial duplex - BRYN (from 04/2017) shows moderately abnormal right BRYN at rest. Right popliteal, trifurcation, and/or tibial disease. Recommend further follow up with CTA or conventional arteriogram. - recommend tight glyemic control, HTN management - C/w statin to reduce risk of CV disease - Recommend Cilostazol - Cont with IV abx - Rest of management as per primary team - Further recs per Dr Dacosta. - Date & Time Date: 06/13/17 Time: 16:33
--- NOTE | 2017-06-13 16:27 | CP.PCM.CON ---
History of Present Illness - History of Present Illness History of Present Illness: 66 year old male with PMH of HTN, DM, S/P left BKA was sent in by his Plate Sensitizer because of worsening right foot wound which has been there since 2 months ago and has been seeing his Plate Sensitizer regularly. He states that there is clear discharge from the wound from the 3rd toe. He denies animal contact, no walking barefoot, no soaking his feet in water. He denies specific trauma to the foot. He states that he has bad circulation on his right leg. He denies fever or chills, no nausea or vomiting, no chest pain, no SOB, no headache or dizziness, no abdominal pain, no diarrhea, no dysuria. Infectious Diseases consult is requested to further evaluate and manage. Review of Systems - Review of Systems All systems: reviewed and no additional remarkable complaints except (as per HPI ) Past Patient History - Infectious Disease Hx of Infectious Diseases: None - Past Social History Smoking Status: Former Smoker - CARDIAC Hx Hypertension: Yes - PULMONARY Hx Respiratory Disorders: No - HEENT Hx HEENT Problems: No - ENDOCRINE/METABOLIC Hx Diabetes Mellitus Type 2: Yes - MUSCULOSKELETAL/RHEUMATOLOGICAL Hx Falls: Yes - GENITOURINARY/GYNECOLOGICAL Hx Genitourinary Disorders: No - PSYCHIATRIC Hx Psychophysiologic Disorder: No Hx Substance Use: No - SURGICAL HISTORY Hx Orthopedic Surgery: Yes Other/Comment: BKA - ANESTHESIA Hx Anesthesia: Yes Hx Anesthesia Reactions: No Meds Allergies/Adverse Reactions: Allergies Allergy/AdvReac Type Severity Reaction Status Date / Time tape Allergy RASH Uncoded 06/12/17 15:07 - Medications Medications: Current Medications Aspirin (Ecotrin) 81 mg PO DAILY [facility] Atorvastatin Calcium (Lipitor) 10 mg PO HS [facility] Last Admin: 06/12/17 21:41 Dose: 10 mg Famotidine (Pepcid) 20 mg PO DAILY [facility] Hydrochlorothiazide (Microzide) 12.5 mg PO DAILY [facility] Piperacillin Sod/Tazobactam Sod (Zosyn 3.375 In Ns 100ml) 100 mls @ 200 mls/hr IVPB Q8 [facility] PRN Reason: Protocol Stop: 06/13/17 06:29 Last Admin: 06/13/17 05:36 Dose: 200 mls/hr Insulin Human Lispro (Humalog Med) 0 units SC ACHS [facility] PRN Reason: Protocol Last Admin: 06/12/17 22:35 Dose: Not Given Insulin Lispro Protam/Lispro Human (Humalog Mix 75/25) 30 units SC QAM [facility] Insulin Lispro Protam/Lispro Human (Humalog Mix 75/25) 20 units SC HS [facility] Last Admin: 06/12/17 22:40 Dose: 20 units Losartan Potassium (Cozaar) 100 mg PO DAILY [facility] Metformin HCl (Glucophage) 500 mg PO DAILY [facility] Sitagliptin Phosphate (Januvia) 50 mg PO DAILY [facility] Physical Exam - Constitutional Appears: Non-toxic, Chronically Ill - Head Exam Head Exam: NORMAL INSPECTION - ENT Exam ENT Exam: Mucous Membranes Moist - Neck Exam Neck exam: Negative for: Meningismus - Respiratory Exam Respiratory Exam: Decreased Breath Sounds - Cardiovascular Exam Cardiovascular Exam: +S1, +S2 - GI/Abdominal Exam GI & Abdominal Exam: Soft. absent: Tenderness - Extremities Exam Additional comments: right foot with dressings in place Results - Vital Signs Recent Vital Signs: Last Vital Signs Temp 99 F 06/12/17 20:12 Pulse 85 06/12/17 20:12 Resp 20 06/12/17 20:12 BP 131/66 06/12/17 20:12 Pulse Ox 99 06/12/17 18:24 - Labs Result Diagrams: 06/13/17 07:00 06/13/17 07:00 Labs: Laboratory Results - last 24 hr 06/12/17 06/12/17 20:37 22:14 POC Glucose (mg/dL) 71 145 H Assessment & Plan - Assessment and Plan (Free Text) Plan: Assessment right foot chronic foot wound, infected in a patient with peripheral vascular disease HTN DM S/P left BKA Plan Started Vancomycin and Zosyn pending wound and blood cx; foot xray does not show osteomyelitis but will discuss with Podiatry to see if patient needs more imaging will monitor clinically
--- NOTE | 2017-06-13 19:16 | CARD ---
APPROVED REPORT EXAM: Two-dimensional and M-mode echocardiogram with Doppler and color Doppler. INDICATION Hypertension/HCVD Cardiac Disease: CAD LV Function:SystolicDiastolic 2D DIMENSIONS Left Atrium (2D)3.7 (1.6-4.0cm)IVSd1.0 (0.7-1.1cm) LVDd4.4 (3.9-5.9cm)PWd1.1 (0.7-1.1cm) LVDs3.2 (2.5-4.0cm)FS (%) 27.3 % LVEF (%)53.2 (>50%) M-Mode DIMENSIONS Aortic Root3.50 (2.2-3.7cm)Aortic Cusp Exc.1.60 (1.5-2.0cm) Aortic Valve AoV Peak Fcbgljxx006.0cm/Kira Peak GR.9mmHg Mitral Valve MV E Yfccwoxv61.4cm/sMV A Ioyeyexh94.2cm/sE/A ratio0.9 TDI E/Lateral E'0.0E/Medial E'0.0 Tricuspid Valve TR Peak [id number]/sRAP [id number] Peak Gr.21mmHg [id number] LEFT VENTRICLE The left ventricle is normal size. There is borderline to mild concentric left ventricular hypertrophy. Proximal septal thickening is noted. The left ventricular function is normal.ef-55% There is normal LV segmental wall motion. Transmitral Doppler flow pattern is Grade III-reversible restrictive diastolic dysfunction. No left ventricle thrombus noted on this study. There is no ventricular septal defect visualized. There is no left ventricular aneurysm. There is no mass noted in the left ventricle. RIGHT VENTRICLE The right ventricle is normal size. There is normal right ventricular wall thickness. The right ventricular systolic function is normal. ATRIA The left atrium is mildly dilated. The right atrium is mildly dilated. The interatrial septum is intact with no evidence for an atrial septal defect. AORTIC VALVE The aortic valve is thickened but opens well. The aortic valve is moderately thickened. There is trace aortic regurgitation. Aortic Sclerosis Vs Mild There is no aortic valvular vegetation. MITRAL VALVE The mitral valve is thickened but opens well. Mitral regurgitation is trace to mild. There is no mitral valve stenosis. There is no evidence of mitral valve prolapse. TRICUSPID VALVE The tricuspid valve leaflets are thickened , but open well. There is mild tricuspid regurgitation.[id number] MM OF hg. There is no tricuspid valve stenosis. There is no tricuspid valve prolapse or vegetation. PULMONIC VALVE The pulmonic valve is borderline thickened. There is trace pulmonic valvular regurgitation. There is no pulmonic valvular stenosis. GREAT VESSELS The aortic root is normal in size. The ascending aorta is normal in size. The pulmonary artery is normal. The IVC is normal in size and collapses >50% with inspiration. PERICARDIAL EFFUSION There is no pleural effusion. There is no pericardial effusion. <Conclusion> The left ventricle is normal size. There is borderline to mild concentric left ventricular hypertrophy. Proximal septal thickening is noted. The left ventricular function is normal.ef-55% There is trace aortic regurgitation. Aortic Sclerosis Vs Mild Mitral regurgitation is trace to mild. There is mild tricuspid regurgitation.[id number] MM OF hg. There is trace pulmonic valvular regurgitation.
--- NOTE | 2017-06-13 20:25 | MRI ---
EXAM: MR Right Lower Extremity Without Intravenous Contrast, Foot EXAM DATE/TIME: 06/13/2017 3:30 PM CLINICAL HISTORY: The patient age is 66 years old and is male; Signs and symptoms; Cellulitis and swelling, leg or foot; Right; Additional info: R/O right foot om Facility exam id and description: Mri footwoconr foot w/o contrast right TECHNIQUE: Multiplanar magnetic resonance images of the right foot without intravenous contrast. COMPARISON: DX - FOOT RIGHT 3 VIEWS ROUTINE 2017-06-12 16:08 FINDINGS: LIGAMENTS: Medial collateral: No visible acute tear. Lateral collateral: No visible acute tear. Lisfranc: No visualized acute tear. TENDONS: Flexor: No visualized acute tear. Extensor: No visualized acute tear. Peroneal: No visualized acute tear. Tibialis anterior: No visualized acute tear. Tibialis posterior: There is a T2 hyperintense partial tear of the posterior tibialis tendon. Muscles: Muscle edema is visualized, suggestive of myositis. Fluid: Minimal tibiotalar and subtalar joint effusions are visualized. Minimal effusions are also visualized at the first and second MTP joint. Sinus tarsi: Edema is seen within the sinus tarsi. Plantar fascia: No visualized acute tear. Bones/joints: STIR hyperintense edema is identified within the bone marrow of the third and fifth digits as well as the distal first and fourth phalanges. The signal intensity can be contributed by partial failure of fat saturation. Patchy edema is visualized within the calcaneus. This marrow edema suspicious for osteomyelitis in the appropriate clinical setting. Post-traumatic change could appear similar. Hypertrophic arthropathy is identified at the first and second and third joints. Calcaneal spurs visualized are clear dorsal spurring of the midfoot. Degenerative spurring is also identified at the tibiotalar and subtalar joints. There is amputation or erosion of the distal third phalanx. IMPRESSION: 1. STIR hyperintense edema is identified within the bone marrow of the third and fifth digits as well as the distal first and fourth phalanges. This signal intensity can be contributed by partial failure of fat saturation. Patchy edema is visualized within the calcaneus. This marrow edema suspicious for osteomyelitis in the appropriate clinical setting. 2. Muscle edema is visualized, suggestive of myositis. 3. Minimal effusions are noted above. 4. Degenerative changes are noted above. 5. There is a partial tear of the posterior tibialis tendon. 6. There is amputation or erosion of the distal third phalanx.
--- NOTE | 2017-06-14 00:38 | CON ---
DATE: 06/13/2017 LOCATION: Patient in room 370, bed #1. REASON FOR CONSULTATION: Cardiac evaluation, peripheral arterial disease, open ulcers on the foot, diabetes, hypertension, cardiac risk stratification, rule out coronary artery disease. HISTORY OF PRESENT ILLNESS: Patient is a 66-year-old male who has history of diabetes for about 20 years and hypertension more than 20 years, history of peripheral vascular disease, has ulcerated areas on the right foot fifth and third toe, and patient being evaluated for possible bypass surgery on the leg. Patient already has amputation, [id number], of the left leg for peripheral vascular disease, which took place about 5 years ago. Denies chest pain, shortness of breath, or palpitations. Denies any PND. PAST MEDICAL HISTORY: Positive for insulin-dependent diabetes mellitus, severe peripheral vascular disease, hypertension, status post amputation below knee of the left leg. ALLERGIES: PATIENT IS ALLERGIC TO PLASTIC TAPE. MEDICATIONS: At home, patient takes simvastatin 10 mg daily, aspirin 81 daily, losartan 100 mg daily, insulin NovoLog 100 units twice a day, Pepcid 20 daily, metformin 50/500 b.i.d. PERSONAL HISTORY: Denies smoking, denies drinking. REVIEW OF SYSTEMS: All other systems reviewed, positive mentioned in the history, others were negative. PHYSICAL EXAMINATION: VITAL SIGNS: Blood pressure 125/66, respirations 20, pulse 78, temperature 98.4. HEENT: Head: Normocephalic. Eyes: Pupils are normal. Conjunctivae normal. Nose and throat: Normal. NECK: JVP low. Carotids equal. THORAX: AP diameter normal. LUNGS: Clear. CARDIOVASCULAR: S1, S2. ABDOMEN: Soft, nontender, no organomegaly. EXTREMITIES: Patient has a left leg amputation, below the knee, has prosthetic leg. Right leg, he has open areas on fifth and third toes of the right foot. LABORATORY DATA: WBC 8.2, hemoglobin 11.5, hematocrit 36.2, platelets 141. Sodium 139, potassium 3.7, BUN 22, creatinine 1.2, random sugar 140. AST and ALT normal. Total protein and albumin normal. Free T4 is 1.14, TSH 1.50. Foot x-ray, no evidence of acute osteomyelitis. EKG and chest x-ray not done. DIAGNOSES: Severe peripheral arterial disease, open areas on fifth and third toes of the right foot, status post amputation of left leg below knee, hypertension, diabetes, hyperlipidemia. PLAN: Patient needs cardiac risk stratification for possible bypass surgery on the right leg. So, we are going to request IV Lexiscan stress test and echocardiogram. We will also do EKG and chest x-ray and we will add to his therapy, Lopressor 25 b.i.d. Patient is already on losartan 100 daily, aspirin 81 daily, metformin 500 daily, insulin 30 units subcu every morning, insulin 20 units subcu at bedtime, Januvia 50 mg daily, atorvastatin 10 mg daily, hydrochlorothiazide 12.5 daily, Pepcid 20 mg p.o. daily, piperacillin I believe with tazobactam IV q.8 hours. We will follow with you. Rosita Rosa MD
[2017-06-14] MEDS: Vancomycin 1gm in NS 250ml 1 GM/250 ML BAG IVPB SCH ×2 (06:22→17:49)
[2017-06-14] MEDS: Piperacillin/Tazobact 3.375 gm 100 ML IVPB SCH ×3 (06:22→21:40)
--- NOTE | 2017-06-14 06:25 | CP.PCM.PN ---
Subjective - Date & Time of Evaluation Date of Evaluation: 06/14/17 Time of Evaluation: 06:45 - Subjective Subjective: Seen and examined by me and Dr. Rosa Reason for consultation and follow up: cardiac evaluation, peripheral vascular disease,insulin dependent diabetes mellitus, open ulcers on the right foot (3rd and 5th toes) left below knee amputation Subjective: denies shortness of breath,denies chest pain, feeling okay, going for a test today Objective - Vital Signs/Intake and Output Vital Signs (last 24 hours): Temp Pulse Resp BP Pulse Ox 98.3 F 78 18 149/71 99 06/13/17 18:00 06/13/17 18:00 06/13/17 18:00 06/13/17 18:00 06/13/17 16:00 Intake and Output: 06/13/17 06/14/17 18:59 06:59 Intake Total 120 Output Total 1520 Balance -1400 - Medications Medications: Current Medications Aspirin (Ecotrin) 81 mg PO DAILY [facility] Last Admin: 06/13/17 10:29 Dose: 81 mg Atorvastatin Calcium (Lipitor) 10 mg PO HS [facility] Last Admin: 06/13/17 22:42 Dose: 10 mg Famotidine (Pepcid) 20 mg PO DAILY [facility] Last Admin: 06/13/17 10:30 Dose: 20 mg Hydrochlorothiazide (Microzide) 12.5 mg PO DAILY [facility] Last Admin: 06/13/17 10:29 Dose: 12.5 mg Piperacillin Sod/Tazobactam Sod (Zosyn 3.375 In Ns 100ml) 100 mls @ 200 mls/hr IVPB Q8 [facility] PRN Reason: Protocol Stop: 06/19/17 22:01 Last Admin: 06/13/17 22:42 Dose: 200 mls/hr Vancomycin HCl (Vancomycin 1gm) 1 gm in 250 mls @ 167 mls/hr IVPB Q12H [facility] PRN Reason: Protocol Last Admin: 06/13/17 18:20 Dose: 167 mls/hr Insulin Human Lispro (Humalog Med) 0 units SC ACHS [facility] PRN Reason: Protocol Last Admin: 06/13/17 22:43 Dose: Not Given Insulin Lispro Protam/Lispro Human (Humalog Mix 75/25) 30 units SC QAM [facility] Last Admin: 06/13/17 10:43 Dose: 30 units Insulin Lispro Protam/Lispro Human (Humalog Mix 75/25) 20 units SC HS [facility] Last Admin: 06/13/17 22:42 Dose: 20 units Losartan Potassium (Cozaar) 100 mg PO DAILY [facility] Last Admin: 06/13/17 10:29 Dose: 100 mg Metformin HCl (Glucophage) 500 mg PO DAILY [facility] Last Admin: 06/13/17 10:29 Dose: 500 mg Metoprolol Tartrate (Lopressor) 25 mg PO BID [facility] Sitagliptin Phosphate (Januvia) 50 mg PO DAILY [facility] Last Admin: 06/13/17 10:29 Dose: 50 mg - Labs Labs: 06/13/17 07:00 06/13/17 07:00 - Constitutional Appears: Well, No Acute Distress - Head Exam Head Exam: NORMAL INSPECTION - Eye Exam Eye Exam: Normal appearance Pupil Exam: NORMAL ACCOMODATION - ENT Exam ENT Exam: Mucous Membranes Moist, Normal Exam - Respiratory Exam Respiratory Exam: Clear to Ausculation Bilateral, NORMAL BREATHING PATTERN - Cardiovascular Exam Cardiovascular Exam: REGULAR RHYTHM, +S1, +S2 - GI/Abdominal Exam GI & Abdominal Exam: Soft, Normal Bowel Sounds - Extremities Exam Additional comments: left below knee amputation with prosthesis, open ulcers on right foot (3rd and 5th toe) - Neurological Exam Neurological Exam: Alert, Awake, Oriented x3 - Psychiatric Exam Psychiatric exam: Normal Affect, Normal Mood - Skin Skin Exam: Dry, Intact, Normal Color, Warm Assessment and Plan - Assessment and Plan (Free Text) Assessment: Impression: cardiac evaluation for foot surgery, peripheral vascular disease, insulin dependent diabetes mellitus, open ulcers on the right foot (3rd and 5th toes) left below knee amputation with prosthesis Plan: Cardiac evaluation for foot surgery Stable cardiac status Continue ASA 81 mg daily,Lipitor 10 mg daily,Microzide 12.5 mg daily, Cozaar 100 mg daily & Lopressor 25 mg BID. Echocardiogram done - LVEF- 55%, Trace AR, Mild MR, Mild TR, Mild left ventricular hypertrophy NPO post midnight For Stress test today Will follow up Plan and treatment reviewed with Dr. Rosa
[2017-06-14] MEDS: Insulin Lispro (humaLOG) MEDIUM Coverage SC SCH ×4 (08:06→22:35)
--- NOTE | 2017-06-14 08:59 | CP.PCM.PN ---
Subjective - Date & Time of Evaluation Date of Evaluation: 06/14/17 Time of Evaluation: 08:53 - Subjective Subjective: Vascular Pt s&e. Seen by Dr. Dacosta yesterday. Plans discussed. Foot pain controlled. + ambulate with help. Denies F/C/N/V/D/CP/SOB Objective - Vital Signs/Intake and Output Vital Signs (last 24 hours): Temp Pulse Resp BP Pulse Ox 97.9 F 75 18 131/73 98 06/14/17 08:40 06/14/17 08:40 06/14/17 08:40 06/14/17 08:40 06/14/17 08:40 Intake and Output: 06/14/17 06/14/17 06:59 18:59 Intake Total 120 Output Total 1520 Balance -1400 - Medications Medications: Current Medications Aspirin (Ecotrin) 81 mg PO DAILY [facility] Last Admin: 06/13/17 10:29 Dose: 81 mg Atorvastatin Calcium (Lipitor) 10 mg PO HS [facility] Last Admin: 06/13/17 22:42 Dose: 10 mg Famotidine (Pepcid) 20 mg PO DAILY [facility] Last Admin: 06/13/17 10:30 Dose: 20 mg Hydrochlorothiazide (Microzide) 12.5 mg PO DAILY [facility] Last Admin: 06/13/17 10:29 Dose: 12.5 mg Piperacillin Sod/Tazobactam Sod (Zosyn 3.375 In Ns 100ml) 100 mls @ 200 mls/hr IVPB Q8 [facility] PRN Reason: Protocol Stop: 06/19/17 22:01 Last Admin: 06/14/17 06:22 Dose: 200 mls/hr Vancomycin HCl (Vancomycin 1gm) 1 gm in 250 mls @ 167 mls/hr IVPB Q12H [facility] PRN Reason: Protocol Last Admin: 06/14/17 06:22 Dose: 167 mls/hr Insulin Human Lispro (Humalog Med) 0 units SC ACHS [facility] PRN Reason: Protocol Last Admin: 06/14/17 08:06 Dose: Not Given Insulin Lispro Protam/Lispro Human (Humalog Mix 75/25) 30 units SC QAM [facility] Last Admin: 06/13/17 10:43 Dose: 30 units Insulin Lispro Protam/Lispro Human (Humalog Mix 75/25) 20 units SC HS [facility] Last Admin: 06/13/17 22:42 Dose: 20 units Losartan Potassium (Cozaar) 100 mg PO DAILY [facility] Last Admin: 06/13/17 10:29 Dose: 100 mg Metformin HCl (Glucophage) 500 mg PO DAILY [facility] Last Admin: 06/13/17 10:29 Dose: 500 mg Metoprolol Tartrate (Lopressor) 25 mg PO BID [facility] Sitagliptin Phosphate (Januvia) 50 mg PO DAILY [facility] Last Admin: 06/13/17 10:29 Dose: 50 mg - Labs Labs: 06/13/17 07:00 06/13/17 07:00 - Constitutional Appears: No Acute Distress - Head Exam Head Exam: ATRAUMATIC, NORMAL INSPECTION, NORMOCEPHALIC - Eye Exam Eye Exam: EOMI, Normal appearance, PERRL Pupil Exam: NORMAL ACCOMODATION, PERRL - ENT Exam ENT Exam: Mucous Membranes Moist, Normal Exam - Neck Exam Neck Exam: Full ROM, Normal Inspection. absent: Lymphadenopathy - Respiratory Exam Respiratory Exam: Clear to Ausculation Bilateral, NORMAL BREATHING PATTERN - Cardiovascular Exam Cardiovascular Exam: REGULAR RHYTHM, +S1, +S2. absent: Murmur - GI/Abdominal Exam GI & Abdominal Exam: Soft, Normal Bowel Sounds. absent: Distended, Firm, Tenderness - Extremities Exam Extremities Exam: absent: Normal Inspection Additional comments: L BKA R foot dressing in place. R leg discoloration. Thready R popliteal pulses. Palpable R SFA - Back Exam Back Exam: NORMAL INSPECTION - Neurological Exam Neurological Exam: Alert, Awake, CN II-XII Intact, Oriented x3 - Psychiatric Exam Psychiatric exam: Normal Affect, Normal Mood - Skin Skin Exam: Dry, Erythema, Intact, Warm Assessment and Plan - Assessment and Plan (Free Text) Assessment: 66 year old male with PMH L BKA PVD, DM2, HTN, presents for right foot ulceration/cellulitis. Vascular surgery consulted for R PVD: BRYN (from 04/2017) shows moderately abnormal right BRYN at rest. Right popliteal , trifurcation, and/or tibial disease. MRI: Suspicious for Osteo, myocytis EF: 55% - [place] R LE bypass pending cardiac risk stratification - f/u Stress test today - ID on board - Cont with IV abx - Rest of management as per primary team - Further recs per Dr Dacosta
[2017-06-14] MEDS ORDERED: Aminophylline 25 mg/ml Inj ONE (09:53)
--- NOTE | 2017-06-14 10:37 | CARD ---
APPROVED REPORT EKG Measurement Heart [id number] ID [id number] <Conclusion> Sinus rhythm with 1st degree AV block
[2017-06-14] MEDS: Insulin Lispro (humaLOG) MIX 75/25(10 ml) SC SCH ×2 (12:47→22:35)
[2017-06-14] MEDS: Oxycodone/Acetaminophen 5/325 mg Tab PO PRN ×2 (14:02→23:22)
--- NOTE | 2017-06-14 15:40 | PN ---
DATE: SUBJECTIVE: The patient is a 66-year-old who came to the emergency room because of worsening left foot ulcer. PHYSICAL EXAMINATION: GENERAL: He is awake, alert, oriented, communicative. VITAL SIGNS: He is afebrile, pulse 74, respirations 18, blood pressure 131/73. LUNGS: Bilateral good airflow. No rhonchi or crackle. HEART: S1 and S2 audible. ABDOMEN: Soft, nontender. No rebound. No guarding. NEUROLOGIC: He is awake, alert, oriented, able to communicate. EXTREMITIES: He is status post left BKA and has prosthesis. LABORATORY DATA: Blood sugar is 93. The patient has a stress test done, results are pending. ASSESSMENT: 1. Worsening right foot ulcer and wound. 2. Atm-oxrkklt-vuvlfbvjv diabetes. 3. Hypertension. 4. Status post left below-knee amputation. 5. Moderately abnormal right ankle-brachial index. 6. Right popliteal and tibial disease. PLAN: The patient is getting stress test today, then it will be decided need cardiac cath, if he is cleared from Cardiology point of view. Then, there is a possibility to have right lower extremity bypass surgery scheduled next week. In the mean time, we will continue on IV antibiotics and monitor his blood sugar. We will follow up in a.m. Berhane Keller MD
--- NOTE | 2017-06-14 18:08 | US ---
PROCEDURE: Lower extremity BRYN exam HISTORY: Peripheral vascular disease with pain right ulceration. Previous smoker. Diabetes. Previous left BKA. PHYSICIAN(S): [place] MD. FINDINGS: The right resting BRYN is moderately abnormal, 0.64 The brachial systolic pressures are symmetric. The high thigh pressures and waveforms are relatively normal. The right calf PVR waveform augments normally. There is a 70 mm gradient across the right knee. This is consistent with distal right SFA, popliteal, and/ or trifurcation disease. The right ankle PVR waveform is moderately blunted. The left metaltarsal waveform is severely blunted IMPRESSION: 1. Moderately abnormal right BRYN at rest. 2. Distal right SFA, popliteal, and/ or tibial disease
--- NOTE | 2017-06-14 18:44 | CP.PCM.PN ---
Subjective - Date & Time of Evaluation Date of Evaluation: 06/14/17 Time of Evaluation: 11:10 - Subjective Subjective: Still with pain in the right foot, no fevers, not in distress. Objective - Vital Signs/Intake and Output Vital Signs (last 24 hours): Temp Pulse Resp BP Pulse Ox 97.9 F 75 18 131/73 98 06/14/17 08:40 06/14/17 08:40 06/14/17 08:40 06/14/17 08:40 06/14/17 08:40 Intake and Output: 06/14/17 06/14/17 06:59 18:59 Intake Total 120 Output Total 1520 Balance -1400 - Medications Medications: Current Medications Aspirin (Ecotrin) 81 mg PO DAILY [facility] Last Admin: 06/13/17 10:29 Dose: 81 mg Atorvastatin Calcium (Lipitor) 10 mg PO HS [facility] Last Admin: 06/13/17 22:42 Dose: 10 mg Famotidine (Pepcid) 20 mg PO DAILY [facility] Last Admin: 06/13/17 10:30 Dose: 20 mg Hydrochlorothiazide (Microzide) 12.5 mg PO DAILY [facility] Last Admin: 06/13/17 10:29 Dose: 12.5 mg Piperacillin Sod/Tazobactam Sod (Zosyn 3.375 In Ns 100ml) 100 mls @ 200 mls/hr IVPB Q8 [facility] PRN Reason: Protocol Stop: 06/19/17 22:01 Last Admin: 06/14/17 06:22 Dose: 200 mls/hr Vancomycin HCl (Vancomycin 1gm) 1 gm in 250 mls @ 167 mls/hr IVPB Q12H [facility] PRN Reason: Protocol Last Admin: 06/14/17 06:22 Dose: 167 mls/hr Insulin Human Lispro (Humalog Med) 0 units SC ACHS [facility] PRN Reason: Protocol Last Admin: 06/14/17 08:06 Dose: Not Given Insulin Lispro Protam/Lispro Human (Humalog Mix 75/25) 30 units SC QAM [facility] Last Admin: 06/13/17 10:43 Dose: 30 units Insulin Lispro Protam/Lispro Human (Humalog Mix 75/25) 20 units SC HS [facility] Last Admin: 06/13/17 22:42 Dose: 20 units Losartan Potassium (Cozaar) 100 mg PO DAILY [facility] Last Admin: 06/13/17 10:29 Dose: 100 mg Metformin HCl (Glucophage) 500 mg PO DAILY [facility] Last Admin: 06/13/17 10:29 Dose: 500 mg Metoprolol Tartrate (Lopressor) 25 mg PO BID [facility] Sitagliptin Phosphate (Januvia) 50 mg PO DAILY [facility] Last Admin: 06/13/17 10:29 Dose: 50 mg - Labs Labs: 06/13/17 07:00 06/13/17 07:00 - Constitutional Appears: Non-toxic, Chronically Ill - Head Exam Head Exam: NORMAL INSPECTION - Neck Exam Neck Exam: absent: Meningismus - Respiratory Exam Respiratory Exam: Decreased Breath Sounds - Cardiovascular Exam Cardiovascular Exam: +S1, +S2 - GI/Abdominal Exam GI & Abdominal Exam: Soft. absent: Tenderness - Extremities Exam Additional comments: right foot with dressings in place Assessment and Plan - Assessment and Plan (Free Text) Plan: Assessment right foot chronic foot wound, infected with osteomyelitis as seen on MRI (3rd and 5th digits) in a patient with peripheral vascular disease HTN DM S/P left BKA Plan continue Vancomycin and Zosyn - patient is for revascularization on Saturday prior to surgery on the foot will continue to monitor clinically
--- NOTE | 2017-06-14 20:42 | CARD ---
APPROVED REPORT Protocol: LEXISCAN Test Type: Lexiscan Sestamibi Stress Test Attending Physician: Dr. Rosita Rosa Referring Physician: Dr. Berhane Keller Test Indications: Chest Pain Height:6 ft 4 in Weight:192lbs Medications: ASPIRIN, LIPITOR, PEPCID, MICROZIDE, LISPRO, COZAAR, LIPITOR, LOPRESSOR, ZOSYN, VANCO, GLUCAPHAGE Medical History: 66 YEAR OLD MALE WITH A H/O DIABETES, HTN AND LEFT BKA Target HR: 152 bpm Resting ECG: RSR. Resting Heart Rate: 78 bpm Resting Blood Pressure: 122/58mmHg Submaximum (85%): 129 bpm PROCEDURE Pharmacologic stress testing was performed using 0.4mg per 5ml of regadenoson given intravenously over 7-10 seconds. POST EXERCISE Reason for Termination: Protocol completed Target HR: No Max HR: 76 bpm 61% of Maximum Predicted HR: 152 bpm Exercise duration: 00:47 min:sec, 0 Stage Exercise capacity: 1.0METs Max Blood Pressure: 122/58mmHg Blood Pressure response to exercise: normal resting BP - appropriate response Heart Rate response to exercise: appropriate Chest Pain: No, none Angina index: 0 Arrhythmia: No, none ST Change: No, none Deviation: 0 mm INTERPRETATION Stress EKG Conclusion: IV LEXISCAN NUCLEAR STRESS TEST NEGATIVE FOR CHEST PAIN AND NEGATIVE FOR ST-T CHANGES. NUCLEAR SCAN REPORT PENDING. Signed by Rosita Rosa Electronically Approved: 06/14/2017 13:10:28 EXAM: Myocardial Perfusion REST/STRESS Stress Test Type: Pharmacologic Imaging Protocol Rest Spect myocardial perfusion imaging was performed in supine position 45 minutes following the injection of 10.3 mCi of Tc-99 Myoview. At peak stress, the patient was injected intravenously with 30.2mCi of Tc-99 tetrofosmin after an infusion time of 0 minutes and 10 seconds. Gated Stress Spect was performed 70 minutes after intravenous Tc-99 Myoview injection. The images were gated to evaluate regional wall motion and calculate ventricular ejection fraction.Images were reconstructed using backfilter projection method in short horizontal and verticle long axis. Spect slices were generated. LV Perfusion The quality of the study is good. The left ventricle is within normal limits in size. The right ventricle is unremarkable. The lung uptake is normal. The distribution of tracer reveals mildly to moderately decreased perfusion in the mid to basal inferior wall on the stress study. The remainder of the LV myocardium is unremarkable. The rest myocardial perfusion study shows no significant change. Wall Motion Wall motion study shows good contractility of the left ventricle. LVEF = 63%. Conclusion 1. Essentially normal SPECT myocardial perfusion study. 2. Fixed, inferior defect is most likely due to diaphrgmatic attenuation. 3. Normal gated wall motion and thicknening of the left ventricle.
--- NOTE | 2017-06-14 22:57 | PN ---
DATE: SUBJECTIVE: A 66-year-old diabetic male well known to the [facility] wound care team, seen at bedside for continued evaluation and management of right diabetic foot ulcerations. The patient is resting comfortably and has no new complaints. Myocardial stress test was ordered today and we are awaiting results. Laboratory findings reveal a white count of 8.2, hemoglobin of 11.5, hematocrit of 36.2, platelet count of 141. His ESR is 25. Right foot culture reveals no organisms preliminarily. OBJECTIVE: VITAL SIGNS: Temperature of 98.2, pulse rate of 63, blood pressure of 104/58, respiratory rate of 20. EXTREMITIES: There is noted to be a left below-knee amputation. Right lower extremity presents with nonpalpable pedal pulses. There is noted edema to the right lower extremity. Capillary filling time is delayed times all digits on the right foot. Protective sensation is absent using 5.07 g monofilament wire testing on the right. There is an ulceration located on the plantar distal aspect of the right digit that measures approximately 2 x 2 x 0.1 cm and there is a smaller ulceration located on the medial aspect of the fifth digit that measures approximately 1.2 cm X 1.2 cm x 0.1 cm. Both of the ulcerations do not probe to bone. The bases of both wounds are mixture of granular and fibrotic tissue. There is no purulence to suggest underlying abscess formation. There is noted to be localized erythema. MRI of the right foot is suspicious for osteomyelitis of the third and fifth digits. Arterial Dopplers reveal distal right SFA, popliteal and tibial disease. ASSESSMENT: Diabetic ulcerations on the right third and fifth digits with accompanying peripheral arterial disease. I spoke with Dr. Dacosta concerning vascular intervention. We will await myocardial stress test results before decision will be made. The patient will be seen and followed daily. Nicolas Gil DPM
[2017-06-15] MEDS: Piperacillin/Tazobact 3.375 gm 100 ML IVPB SCH ×3 (05:16→21:45)
[2017-06-15] MEDS: Vancomycin 1gm in NS 250ml 1 GM/250 ML BAG IVPB SCH ×2 (06:02→17:37)
--- NOTE | 2017-06-15 08:25 | CP.PCM.PN ---
Subjective - Date & Time of Evaluation Date of Evaluation: 06/15/17 Time of Evaluation: 08:25 - Subjective Subjective: VAscular PT s&e. NAEON. Had stress test yesterday. Tolerated it well. Pain controlled. Denies F/C/N/V/D/CP/SOB. Objective - Vital Signs/Intake and Output Vital Signs (last 24 hours): Temp Pulse Resp BP Pulse Ox 98.2 F 63 20 104/58 L 96 06/14/17 16:00 06/14/17 17:38 06/14/17 16:00 06/14/17 17:38 06/14/17 16:00 Intake and Output: 06/15/17 06/15/17 06:59 18:59 Intake Total 2250 Output Total 3100 Balance -850 - Medications Medications: Current Medications Aspirin (Ecotrin) 81 mg PO DAILY [facility] Last Admin: 06/14/17 12:33 Dose: 81 mg Atorvastatin Calcium (Lipitor) 10 mg PO HS [facility] Last Admin: 06/14/17 21:39 Dose: 10 mg Famotidine (Pepcid) 20 mg PO DAILY [facility] Last Admin: 06/14/17 12:33 Dose: 20 mg Hydrochlorothiazide (Microzide) 12.5 mg PO DAILY [facility] Last Admin: 06/14/17 12:33 Dose: 12.5 mg Piperacillin Sod/Tazobactam Sod (Zosyn 3.375 In Ns 100ml) 100 mls @ 200 mls/hr IVPB Q8 [facility] PRN Reason: Protocol Stop: 06/19/17 22:01 Last Admin: 06/15/17 05:16 Dose: 200 mls/hr Vancomycin HCl (Vancomycin 1gm) 1 gm in 250 mls @ 167 mls/hr IVPB Q12H [facility] PRN Reason: Protocol Last Admin: 06/15/17 06:02 Dose: 167 mls/hr Insulin Human Lispro (Humalog Med) 0 units SC ACHS [facility] PRN Reason: Protocol Last Admin: 06/14/17 22:35 Dose: Not Given Insulin Lispro Protam/Lispro Human (Humalog Mix 75/25) 30 units SC QAM [facility] Last Admin: 06/14/17 12:47 Dose: Not Given Insulin Lispro Protam/Lispro Human (Humalog Mix 75/25) 20 units SC HS [facility] Last Admin: 06/14/17 22:35 Dose: 20 units Losartan Potassium (Cozaar) 100 mg PO DAILY [facility] Last Admin: 06/14/17 12:33 Dose: 100 mg Metformin HCl (Glucophage) 500 mg PO DAILY [facility] Last Admin: 06/14/17 12:33 Dose: 500 mg Metoprolol Tartrate (Lopressor) 25 mg PO BID [facility] Last Admin: 06/14/17 17:38 Dose: Not Given Oxycodone/Acetaminophen (Percocet 5/325 Mg Tab) 1 tab PO Q6H [facility] PRN Reason: Pain, moderate (4-7) Stop: 06/17/17 13:38 Last Admin: 06/14/17 23:22 Dose: 1 tab Sitagliptin Phosphate (Januvia) 50 mg PO DAILY [facility] Last Admin: 06/14/17 12:33 Dose: 50 mg - Labs Labs: 06/13/17 07:00 06/13/17 07:00 - Constitutional Appears: No Acute Distress - Head Exam Head Exam: ATRAUMATIC, NORMAL INSPECTION, NORMOCEPHALIC - Eye Exam Eye Exam: EOMI, Normal appearance, PERRL Pupil Exam: NORMAL ACCOMODATION, PERRL - ENT Exam ENT Exam: Mucous Membranes Moist, Normal Exam - Neck Exam Neck Exam: Full ROM, Normal Inspection. absent: Lymphadenopathy - Respiratory Exam Respiratory Exam: Clear to Ausculation Bilateral, NORMAL BREATHING PATTERN - Cardiovascular Exam Cardiovascular Exam: REGULAR RHYTHM, +S1, +S2. absent: Murmur - GI/Abdominal Exam GI & Abdominal Exam: Soft, Normal Bowel Sounds. absent: Tenderness - Extremities Exam Extremities Exam: Tenderness Additional comments: L BKA. R foot dressing in place. - Neurological Exam Neurological Exam: Alert, Awake, CN II-XII Intact, Oriented x3 - Psychiatric Exam Psychiatric exam: Normal Affect, Normal Mood - Skin Skin Exam: Dry, Erythema, Intact, Mottled, Warm. absent: Normal Color Assessment and Plan - Assessment and Plan (Free Text) Assessment: 66 year old male with PMH L BKA PVD, DM2, HTN, presents for right foot ulceration/cellulitis. Vascular surgery consulted for R PVD: BRYN (from 04/2017) shows moderately abnormal right BRYN at rest. Right popliteal , trifurcation, and/or tibial disease. MRI: Suspicious for Osteo, myocytis EF: 55% Stress test : normal - Planned for OR on 10AM for R pop-DP bypass with graft -NPO aftermidnight on Saturday - ID on board - Cont with IV abx - Rest of management as per primary team - Further recs per Dr Dacosta
[2017-06-15] MEDS: Insulin Lispro (humaLOG) MEDIUM Coverage SC SCH ×4 (08:41→22:12)
[2017-06-15] MEDS: Insulin Lispro (humaLOG) MIX 75/25(10 ml) SC SCH ×2 (09:46→22:13)
--- NOTE | 2017-06-15 11:16 | PN ---
DATE: SUBJECTIVE: A 66-year-old diabetic male seen at bedside for continued evaluation and management of right diabetic foot ulcerations. The patient is resting comfortably and has no new complaints. VITAL SIGNS: Revealed temperature of 98.2, pulse rate of 63, blood pressure of 104/58, respiratory rate of 20. LABORATORY FINDINGS: Reveal a white count of 8.2, hemoglobin of 11.5, hematocrit of 36.2, platelet count of 141,000. His ESR is 25. Wound culture taken on 06/13/2017 of the ulcerated digits on the right foot reveal no organisms preliminarily. Myocardial stress test taken yesterday reveals within normal limit results. MRI of the right foot reveals suspicion for osteomyelitis of the third and fifth digits. Arterial Dopplers reveal right SFA popliteal and tibial disease. OBJECTIVE: Extremities, there is noted to be a left below-knee amputation and lower extremity presents with nonpalpable pedal pulses. There is noted to be edema to the right lower extremity. Capillary filling time is delayed on all the digits of the right foot and absent at the third digit as the distal tip is ulcerated. Protective sensation is absent using 5.07 g monofilament wire testing on the right. There is a full-thickness ulceration on the distal aspect of the right third digit that now probes to bone and covers the entire distal aspect of the toe. There is a smaller ulceration on the medial aspect of the fifth digit that measures approximately 1 cm x 1 cm x 0.1 cm. This ulceration does not probe to bone. Bases of both wounds are mixture of granular and fibrotic tissue. There is no purulence emanating from either ulcer to suggest abscess formation. There is decreasing localized erythema. ASSESSMENT: Diabetic ulcerations on the right third and fifth digits with clinical osteomyelitis of the right third digit. PLAN: The patient's wounds were cleansed with normal sterile saline and application of Maxorb and dry sterile dressing was applied to each digit. The patient is scheduled for a right dorsalis pedis bypass with graft by Dr. Winnie Dacosta on Saturday at 10:00 a.m. Pending the results of the surgery, we will plan for the right third digit amputation on Saturday or . Infectious Disease note was read and appreciated. We will continue with daily dressing changes. Nicolas Gil DPM [facility] # [id number]
--- NOTE | 2017-06-15 18:21 | PN ---
DATE: 06/15/2017 SUBJECTIVE: The patient is in bed in no acute distress, nontoxic. PHYSICAL EXAMINATION: VITAL SIGNS: Temperature is 98, blood pressure is 104/50, respiratory rate of 20. HEENT: Unremarkable. NECK: Supple. LUNGS: Have decreased breath sounds. HEART: Normal S1, S2. ABDOMEN: Soft, nontender. LABORATORY EXAMINATION: Reveals a white count is 8.2, hemoglobin of 11 and platelets of 141. Chemistries are noted. The patient's creatinine is 1.2. Urinalysis is noted. Microbiology reveals a gram-negative rose marie and blood cultures, no growth. Urine cultures, no growth. Right foot culture is a gram-negative rose marie. Review of orders reveals the patient to be on vancomycin and Zosyn. ASSESSMENT AND PLAN: A 66-year-old with right foot chronic foot wound infected with osteomyelitis as seen on MRI third and fifth digits in a patient with peripheral vascular disease, hypertension, diabetes, status post left below-knee amputation, on vancomycin and Zosyn. The patient for revascularization on Saturday. We will follow with you. Thomas Murcia MD
--- NOTE | 2017-06-15 21:19 | PN ---
DATE: SUBJECTIVE: Patient has no complaints of any chest pain. No shortness of breath. No headaches or dizziness. PHYSICAL EXAMINATION: VITAL SIGNS: Temperature is 98.9, pulse of 81, blood pressure is 108/64, respirations 20. GENERAL: The patient is lying in bed, flat, comfortable. HEENT: No oral lesion. Anicteric sclerae. Moist mucosa. NECK: No JVD, adenopathy, or thyromegaly. CARDIOVASCULAR: S1 and S2, regular. No murmurs, rubs, or gallops. LUNGS: Clear to auscultation bilaterally. No wheeze, rales, or rhonchi. ABDOMEN: Bowel sounds are positive, soft, nontender, and nondistended. EXTREMITIES: no cyanosis, clubbing, or edema. LABORATORY DATA: Labs have been reviewed. Hemoglobin is 11.5. Stress test done shows normal stress test with EF of 63%. ASSESSMENT: 1. 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 2. Diabetes type 2. 3. Dyslipidemia. 4. Hypertension. 5. Peripheral arterial disease. PLAN: Patient is currently comfortable. He is going to continue with his losartan for his hypertension. He is on aspirin daily. The patient is on diabetic medication of metformin. His blood cultures have been negative as well as urine cultures. He has gram-negative rods on his foot culture. The patient is on hydrochlorothiazide for his hypertension. He is on Percocet for his pain. He is going to continue his vancomycin and Zosyn. He is being followed by ID. Kaiser Bowers MD
[2017-06-15] MEDS: Oxycodone/Acetaminophen 5/325 mg Tab PO PRN (21:46)
--- NOTE | 2017-06-15 22:17 | US ---
PROCEDURE: Right lower extremity venous US HISTORY: Evaluate right greater saphenous vein for possible distal bypass PHYSICIAN(S): [place] M.D. TECHNIQUE: Duplex sonography and color-flow Doppler with graded compression were used to evaluate the right greater saphenous vein FINDINGS: The right greater saphenous vein is patent. No evidence of superficial thrombophlebitis is seen. At the right saphenous femoral junction, the GSV measures 7 mm In the thigh. The right saphenous vein measures 6 mm. At the knee, the right greater saphenous vein measures 6 mm. Below the knee, the right GSV measures 3 mm IMPRESSION: 1. The right greater saphenous vein is patent and normal above and below the knee.
[2017-06-16] MEDS: Piperacillin/Tazobact 3.375 gm 100 ML IVPB SCH ×3 (05:37→21:04)
[2017-06-16] MEDS: Vancomycin 1gm in NS 250ml 1 GM/250 ML BAG IVPB SCH ×2 (06:18→17:35)
--- NOTE | 2017-06-16 07:30 | CP.PCM.PN ---
Subjective - Date & Time of Evaluation Date of Evaluation: 06/16/17 Time of Evaluation: 07:30 - Subjective Subjective: Surgery: Dr. Dacosta Patient doing well today. Occasional pain to the left toes controlled with medication. Objective - Vital Signs/Intake and Output Vital Signs (last 24 hours): Temp Pulse Resp BP Pulse Ox 97.2 F L 74 20 121/70 95 06/15/17 17:28 06/15/17 17:38 06/15/17 17:28 06/15/17 17:38 06/15/17 17:28 Intake and Output: 06/16/17 06/16/17 06:59 18:59 Intake Total 350 Output Total 350 Balance 0 - Medications Medications: Current Medications Aspirin (Ecotrin) 81 mg PO DAILY [facility] Last Admin: 06/15/17 09:46 Dose: 81 mg Atorvastatin Calcium (Lipitor) 10 mg PO HS [facility] Last Admin: 06/15/17 21:45 Dose: 10 mg Famotidine (Pepcid) 20 mg PO DAILY [facility] Last Admin: 06/15/17 09:46 Dose: 20 mg Hydrochlorothiazide (Microzide) 12.5 mg PO DAILY [facility] Last Admin: 06/15/17 09:46 Dose: 12.5 mg Piperacillin Sod/Tazobactam Sod (Zosyn 3.375 In Ns 100ml) 100 mls @ 200 mls/hr IVPB Q8 [facility] PRN Reason: Protocol Stop: 06/19/17 22:01 Last Admin: 06/16/17 05:37 Dose: 200 mls/hr Vancomycin HCl (Vancomycin 1gm) 1 gm in 250 mls @ 167 mls/hr IVPB Q12H [facility] PRN Reason: Protocol Last Admin: 06/16/17 06:18 Dose: 167 mls/hr Insulin Human Lispro (Humalog Med) 0 units SC ACHS [facility] PRN Reason: Protocol Last Admin: 06/15/17 22:12 Dose: Not Given Insulin Lispro Protam/Lispro Human (Humalog Mix 75/25) 30 units SC QAM [facility] Last Admin: 06/15/17 09:46 Dose: Not Given Insulin Lispro Protam/Lispro Human (Humalog Mix 75/25) 20 units SC HS [facility] Last Admin: 06/15/17 22:13 Dose: 20 units Losartan Potassium (Cozaar) 100 mg PO DAILY [facility] Last Admin: 06/15/17 09:45 Dose: 100 mg Metformin HCl (Glucophage) 500 mg PO DAILY [facility] Last Admin: 06/15/17 09:45 Dose: 500 mg Metoprolol Tartrate (Lopressor) 25 mg PO BID [facility] Last Admin: 06/15/17 17:38 Dose: 25 mg Oxycodone/Acetaminophen (Percocet 5/325 Mg Tab) 1 tab PO Q6H [facility] PRN Reason: Pain, moderate (4-7) Stop: 06/17/17 13:38 Last Admin: 06/15/17 21:46 Dose: 1 tab Sitagliptin Phosphate (Januvia) 50 mg PO DAILY [facility] Last Admin: 06/15/17 09:45 Dose: 50 mg - Labs Labs: 06/13/17 07:00 06/13/17 07:00 - Constitutional Appears: Non-toxic, No Acute Distress - Head Exam Head Exam: ATRAUMATIC, NORMOCEPHALIC - Eye Exam Eye Exam: EOMI, Normal appearance - ENT Exam ENT Exam: Mucous Membranes Moist - Respiratory Exam Respiratory Exam: NORMAL BREATHING PATTERN. absent: Respiratory Distress - Cardiovascular Exam Cardiovascular Exam: REGULAR RHYTHM. absent: Tachycardia Assessment and Plan - Assessment and Plan (Free Text) Assessment: 66 y/o male with chronic nonhealing right foot wound and PAD Plan: -OR scheduled for saturday -NPO pmn On Saturday -further recs per Dr. Praneeth Degroot PGY3
[2017-06-16] MEDS: Insulin Lispro (humaLOG) MEDIUM Coverage SC SCH ×3 (08:29→17:32)
[2017-06-16] MEDS: Insulin Lispro (humaLOG) MIX 75/25(10 ml) SC SCH (09:31)
--- NOTE | 2017-06-16 14:05 | CP.PCM.PN ---
<Gemma Blake - Last Filed: 06/16/17 14:05> Subjective - Date & Time of Evaluation Date of Evaluation: 06/16/17 Time of Evaluation: 14:04 - Subjective Subjective: Podiatry Progress Note- Dr. Zeng 66 y/o male seen at bedside this morning for right diabetic foot ulcerations to 3rd and 5th toes. Pt is resting comfortably in bed at time of visit. Denies any overnight events. Denies any pain to the right foot at present. Denies F/C/N/V/ CP/SOB Objective - Vital Signs/Intake and Output Vital Signs (last 24 hours): Temp Pulse Resp BP Pulse Ox 97.8 F 64 20 125/68 95 06/16/17 06:00 06/16/17 09:28 06/16/17 06:00 06/16/17 09:28 06/16/17 06:00 Intake and Output: 06/16/17 06/16/17 06:59 18:59 Intake Total 350 Output Total 350 Balance 0 - Medications Medications: Current Medications Aspirin (Ecotrin) 81 mg PO DAILY [facility] Last Admin: 06/16/17 09:28 Dose: 81 mg Atorvastatin Calcium (Lipitor) 10 mg PO HS [facility] Last Admin: 06/15/17 21:45 Dose: 10 mg Famotidine (Pepcid) 20 mg PO DAILY [facility] Last Admin: 06/16/17 09:28 Dose: 20 mg Hydrochlorothiazide (Microzide) 12.5 mg PO DAILY [facility] Last Admin: 06/16/17 09:28 Dose: 12.5 mg Piperacillin Sod/Tazobactam Sod (Zosyn 3.375 In Ns 100ml) 100 mls @ 200 mls/hr IVPB Q8 [facility] PRN Reason: Protocol Stop: 06/19/17 22:01 Last Admin: 06/16/17 13:39 Dose: 200 mls/hr Vancomycin HCl (Vancomycin 1gm) 1 gm in 250 mls @ 167 mls/hr IVPB Q12H [facility] PRN Reason: Protocol Last Admin: 06/16/17 06:18 Dose: 167 mls/hr Insulin Human Lispro (Humalog Med) 0 units SC ACHS [facility] PRN Reason: Protocol Last Admin: 06/16/17 11:39 Dose: Not Given Insulin Lispro Protam/Lispro Human (Humalog Mix 75/25) 30 units SC QAM [facility] Last Admin: 06/16/17 09:31 Dose: Not Given Insulin Lispro Protam/Lispro Human (Humalog Mix 75/25) 20 units SC HS [facility] Last Admin: 06/15/17 22:13 Dose: 20 units Losartan Potassium (Cozaar) 100 mg PO DAILY [facility] Last Admin: 06/16/17 09:29 Dose: 100 mg Metformin HCl (Glucophage) 500 mg PO DAILY [facility] Last Admin: 06/16/17 09:28 Dose: 500 mg Metoprolol Tartrate (Lopressor) 25 mg PO BID [facility] Last Admin: 06/16/17 09:28 Dose: 25 mg Oxycodone/Acetaminophen (Percocet 5/325 Mg Tab) 1 tab PO Q6H PRN PRN Reason: Pain, moderate (4-7) Stop: 06/17/17 13:38 Last Admin: 06/15/17 21:46 Dose: 1 tab Sitagliptin Phosphate (Januvia) 50 mg PO DAILY [facility] Last Admin: 06/16/17 09:28 Dose: 50 mg - Labs Labs: 06/13/17 07:00 06/13/17 07:00 - Constitutional Appears: Well, Non-toxic, No Acute Distress - Extremities Exam Additional comments: Right lower extremity focused- LLE BKA with prosthetic noted at level of knee Vasc: DP and PT nonpalpable, temperature cool to cool, edema noted to the right LE, CFT delayed to the digits and absent to 3rd digit at site of ulceration Derm: Ulceration located on the plantar aspect of right 3rd digit measuring approximately 2 x 2 x 0.3 cm with mostly fibrotic wound base; probes deep to bone. No fluctuance, no active drainage, no malodor. Second ulceration located on the medial aspect of the 5th digit measuring 1.5 x 1.5 x .1; wound base is fibrotic/granular with minimal serous drainage noted on bandage, no fluctuance, no probe to bone, no undermining, and no tunneling. Mild erythema noted to the surrounding periwound areas Ortho: mild tenderness noted to palpation of R foot 3rd digit; no tenderness noted to palpation of 5th digit Neuro: protective and gross sensation diminished - Neurological Exam Neurological Exam: Alert, Awake, Oriented x3 - Psychiatric Exam Psychiatric exam: Normal Affect, Normal Mood Assessment and Plan - Assessment and Plan (Free Text) Assessment: 66 y/o male with right diabetic foot ulcerations to the 3rd and 5th digits, with clinical osteomyelitis of the right 3rd digit Plan: Pt seen and evaluated at bedside Discussed with attending Dr. Zeng Labs and vitals reviewed- afebrile, NNL Wounds cleansed with saline and dressed with Maxorb and DSD Pt to go for right foot dorsalis pedia bypass with graft with Dr. Dacosta on Saturday Plan for possible amputation of R 3rd digit on Saturday or Continue IV abx as per ID Podiatry will continue to follow patient <Beatriz Zeng - Last Filed: 06/16/17 16:02> Objective - Vital Signs/Intake and Output Vital Signs (last 24 hours): Temp Pulse Resp BP Pulse Ox 97.8 F 64 20 125/68 95 06/16/17 06:00 06/16/17 09:28 06/16/17 06:00 06/16/17 09:28 06/16/17 06:00 Intake and Output: 06/16/17 06/16/17 06:59 18:59 Intake Total 350 Output Total 350 Balance 0 - Medications Medications: Current Medications Aspirin (Ecotrin) 81 mg PO DAILY [facility] Last Admin: 06/16/17 09:28 Dose: 81 mg Atorvastatin Calcium (Lipitor) 10 mg PO HS [facility] Last Admin: 06/15/17 21:45 Dose: 10 mg Famotidine (Pepcid) 20 mg PO DAILY [facility] Last Admin: 06/16/17 09:28 Dose: 20 mg Hydrochlorothiazide (Microzide) 12.5 mg PO DAILY [facility] Last Admin: 06/16/17 09:28 Dose: 12.5 mg Piperacillin Sod/Tazobactam Sod (Zosyn 3.375 In Ns 100ml) 100 mls @ 200 mls/hr IVPB Q8 [facility] PRN Reason: Protocol Stop: 06/19/17 22:01 Last Admin: 06/16/17 13:39 Dose: 200 mls/hr Vancomycin HCl (Vancomycin 1gm) 1 gm in 250 mls @ 167 mls/hr IVPB Q12H [facility] PRN Reason: Protocol Last Admin: 06/16/17 06:18 Dose: 167 mls/hr Insulin Human Lispro (Humalog Med) 0 units SC ACHS [facility] PRN Reason: Protocol Last Admin: 06/16/17 11:39 Dose: Not Given Insulin Lispro Protam/Lispro Human (Humalog Mix 75/25) 30 units SC QAM [facility] Last Admin: 06/16/17 09:31 Dose: Not Given Insulin Lispro Protam/Lispro Human (Humalog Mix 75/25) 20 units SC HS [facility] Last Admin: 06/15/17 22:13 Dose: 20 units Losartan Potassium (Cozaar) 100 mg PO DAILY [facility] Last Admin: 06/16/17 09:29 Dose: 100 mg Metformin HCl (Glucophage) 500 mg PO DAILY [facility] Last Admin: 06/16/17 09:28 Dose: 500 mg Metoprolol Tartrate (Lopressor) 25 mg PO BID [facility] Last Admin: 06/16/17 09:28 Dose: 25 mg Oxycodone/Acetaminophen (Percocet 5/325 Mg Tab) 1 tab PO Q6H PRN PRN Reason: Pain, moderate (4-7) Stop: 06/17/17 13:38 Last Admin: 06/16/17 14:42 Dose: 1 tab Sitagliptin Phosphate (Januvia) 50 mg PO DAILY [facility] Last Admin: 06/16/17 09:28 Dose: 50 mg - Labs Labs: 06/13/17 07:00 06/13/17 07:00 Attending/Attestation - Attestation I have personally seen and examined this patient.: Yes I have fully participated in the care of the patient.: Yes I have reviewed all pertinent clinical information, including history, physical exam and plan: Yes
[2017-06-16] MEDS: Oxycodone/Acetaminophen 5/325 mg Tab PO PRN (14:42)
--- NOTE | 2017-06-16 14:50 | PN ---
DATE: SUBJECTIVE: The patient is in bed, in no acute distress, nontoxic. PHYSICAL EXAMINATION VITAL SIGNS: Temperature is 97, blood pressure is 120/60, respiratory rate of 18. HEENT: Examination is unremarkable. NECK: Supple. LUNGS: Have decreased breath sounds. HEART: Normal S1, S2. ABDOMEN: Soft, nontender. LABORATORY DATA: Reveals a white count of 8, hemoglobin of 11, platelets of 141,000. Chemistries reveal the patient to have a BUN of 22, creatinine of 1.2. Urinalysis is as noted. Microbiology reveals the right foot culture with Klebsiella pneumoniae species and olvrea sensitive. Review of orders reveals the patient to be on Zosyn. ASSESSMENT AND PLAN: A 66-year-old male with right foot chronic wound infection with osteomyelitis seen on MRI third and fifth digits in a patient with peripheral vascular disease; hypertension; diabetes; status post left below-knee amputation, on Zosyn; Klebsiella is the organism. The patient for surgery this week. Thomas Murcia MD
--- NOTE | 2017-06-16 15:50 | PN ---
DATE: 06/16/2017 SUBJECTIVE: The patient has no complaints of any chest pain. No shortness of breath. No headaches. PHYSICAL EXAMINATION: VITAL SIGNS: Temperature is 97.8, pulse of 64, blood pressure is 125/68, respirations 20. GENERAL: The patient is lying in bed, flat, comfortable. HEENT: No oral lesion. Anicteric sclerae. Moist mucosa. NECK: No JVD, adenopathy, or thyromegaly. CARDIOVASCULAR: S1 and S2, regular. No murmurs, rubs, or gallops. LUNGS: Clear to auscultation bilaterally. No wheeze, rales, or rhonchi. ABDOMEN: Bowel sounds are positive, soft, nontender and nondistended. EXTREMITIES: Left BKA. LABORATORY DATA: White count of 8.2, hemoglobin 11.5. ASSESSMENT: 1. 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 2. Diabetes type 2. 3. Dyslipidemia. 4. Hypertension. 5. Peripheral arterial disease. 6. Left below-knee amputation. PLAN: The patient is currently comfortable. He is going to be on losartan for his hypertension. He is on aspirin daily. He is on metformin for his diabetes type 2. He is also on insulin. The patient is on Januvia for his . He is going to continue with Lipitor for dyslipidemia. He is on metoprolol. He is on hydrochlorothiazide for his hypertension. He is getting antibiotics with vancomycin and Zosyn. He has a culture that showed Klebsiella. He is being followed by Dr. Murcia for his cellulitis. Kaiser Bowers MD
[2017-06-16] MEDS ORDERED: Insulin Lispro 1 UNITS/0.01 ML SC ONE (22:40)
[2017-06-17] MEDS: Insulin Lispro (humaLOG) MEDIUM Coverage SC SCH ×4 (05:41→16:41)
[2017-06-17] MEDS: Piperacillin/Tazobact 3.375 gm 100 ML IVPB SCH ×3 (06:06→21:40)
[2017-06-17] MEDS: Vancomycin 1gm in NS 250ml 1 GM/250 ML BAG IVPB SCH ×2 (06:43→17:34)
--- NOTE | 2017-06-17 08:04 | CON ---
DATE: 06/14/2017 DOCTOR REQUESTING: Brice Olguin MD REPORT OF CONSULTATION: This is a 66-year-old male patient was admitted by the emergency room complaining of right foot pain, typically on standing or moving. The patient did not give a classic history of rest pain. He has had a previous left BKA and has changes in his toes of his right foot. PAST MEDICAL HISTORY: Remarkable for diabetes mellitus and hypertension. There is no history of heart attacks, stroke, blood clotting disorder. PAST SURGICAL HISTORY: Remarkable for left BKA. MEDICATIONS: As were noted in the medical reconciliation sheet. ALLERGIES: THE PATIENT IS ALLERGIC TO TAPE. FAMILY HISTORY: Noncontributory. REVIEW OF SYSTEMS: SKIN: See history of present illness. HEAD AND NECK: No migraines. No double vision or sore throat, hearing disorder. CARDIOVASCULAR: No chest pains, palpitations, paroxysmal nocturnal dyspnea or orthopnea. RESPIRATORY: No cough, cold, hemoptysis. No asthma, emphysema. GI: No abdominal pain, nausea, vomiting, diarrhea, blood in the stools. : No dysuria, hematuria or nocturia. NEUROLOGIC: No paralysis, paresthesia. No seizures, difficulty swallowing or difficulty speaking. PSYCHIATRIC: No known psychiatric illnesses. PHYSICAL EXAMINATION: GENERAL: This was a pleasant 66-year-old male patient, in no acute distress. HEAD AND NECK: Neck supple. No masses. Mucous membranes pink. No jaundice. CHEST: No masses. Equal expansion. Pulse, good volume, regular, equal. CARDIOVASCULAR: Heart sounds 1 and 2 were heard. No murmurs. ABDOMEN: Soft, nontender. No masses. Bowel sounds present. THYROID: No enlargement. No masses. LYMPHATIC: No adenopathy. NEUROLOGIC: Alert, oriented. No gross deficits. EXTREMITIES: Revealed healed left BKA. The right lower extremity, there was a slight flexion contraction of his right knee with superficial ulceration of his toes. VASCULAR: Revealed palpable right popliteal pulse with no foot pulses present. DIAGNOSES: Peripheral vascular disease with right lower extremity pain; ulceration of toes, right foot; diabetes; high blood pressure. RECOMMENDATIONS: The patient does not give a typical history of ischemic rest pain or other ischemic changes in the toes. I would recommend noninvasive vascular evaluation along with arterial duplex of his right lower extremity. If indicated, we will do a right femoral lower extremity arteriogram. Xavi Livingston MD [facility] # [id number]
--- NOTE | 2017-06-17 08:58 | CP.PCM.PN ---
Subjective - Date & Time of Evaluation Date of Evaluation: 06/17/17 Time of Evaluation: 08:51 - Subjective Subjective: Surgery Progress Note for Dr Dacosta: Patient seen and examined at bedside. No acute events overnight. Pt reports intermittent toe pain, controlled with meds. Denies fever, chills, nausea, vomiting, abdominal pain. Objective - Vital Signs/Intake and Output Vital Signs (last 24 hours): Temp Pulse Resp BP Pulse Ox 98.2 F 68 20 119/62 97 06/17/17 08:33 06/17/17 08:33 06/17/17 08:33 06/17/17 08:33 06/17/17 08:33 Intake and Output: 06/17/17 06/17/17 06:59 18:59 Intake Total 870 Output Total 1000 Balance -130 - Medications Medications: Current Medications Aspirin (Ecotrin) 81 mg PO DAILY [facility] Last Admin: 06/16/17 09:28 Dose: 81 mg Atorvastatin Calcium (Lipitor) 10 mg PO HS [facility] Last Admin: 06/16/17 21:04 Dose: 10 mg Famotidine (Pepcid) 20 mg PO DAILY [facility] Last Admin: 06/16/17 09:28 Dose: 20 mg Hydrochlorothiazide (Microzide) 12.5 mg PO DAILY [facility] Last Admin: 06/16/17 09:28 Dose: 12.5 mg Piperacillin Sod/Tazobactam Sod (Zosyn 3.375 In Ns 100ml) 100 mls @ 200 mls/hr IVPB Q8 [facility] PRN Reason: Protocol Stop: 06/19/17 22:01 Last Admin: 06/17/17 06:06 Dose: 200 mls/hr Vancomycin HCl (Vancomycin 1gm) 1 gm in 250 mls @ 167 mls/hr IVPB Q12H [facility] PRN Reason: Protocol Last Admin: 06/17/17 06:43 Dose: 167 mls/hr Insulin Human Lispro (Humalog Med) 0 units SC ACHS [facility] PRN Reason: Protocol Last Admin: 06/17/17 05:41 Dose: Not Given Insulin Lispro Protam/Lispro Human (Humalog Mix 75/25) 30 units SC QAM [facility] Last Admin: 06/16/17 09:31 Dose: Not Given Insulin Lispro Protam/Lispro Human (Humalog Mix 75/25) 20 units SC HS [facility] Last Admin: 06/15/17 22:13 Dose: 20 units Losartan Potassium (Cozaar) 100 mg PO DAILY [facility] Last Admin: 06/16/17 09:29 Dose: 100 mg Metformin HCl (Glucophage) 500 mg PO DAILY [facility] Last Admin: 06/16/17 09:28 Dose: 500 mg Metoprolol Tartrate (Lopressor) 25 mg PO BID [facility] Last Admin: 06/16/17 17:32 Dose: 25 mg Oxycodone/Acetaminophen (Percocet 5/325 Mg Tab) 1 tab PO Q6H PRN PRN Reason: Pain, moderate (4-7) Stop: 06/17/17 13:38 Last Admin: 06/16/17 14:42 Dose: 1 tab Sitagliptin Phosphate (Januvia) 50 mg PO DAILY [facility] Last Admin: 06/16/17 09:28 Dose: 50 mg - Labs Labs: 06/13/17 07:00 06/13/17 07:00 - Additional Findings Additional findings: - Constitutional Appears: Non-toxic, No Acute Distress - Head Exam Head Exam: ATRAUMATIC, NORMOCEPHALIC - Eye Exam Eye Exam: EOMI, PERRL. absent: Conjunctival injection, Nystagmus, Scleral icterus Pupil Exam: NORMAL ACCOMODATION, PERRL. absent: Fixed, Irregular, Miosis, Unequal - ENT Exam ENT Exam: Mucous Membranes Moist - Neck Exam Neck exam: Positive for: Full Rom - Respiratory Exam Respiratory Exam: Clear to Auscultation Bilateral, NORMAL BREATHING PATTERN. absent: Rales, Rhonchi, Wheezes - Cardiovascular Exam Cardiovascular Exam: RRR, +S1, +S2. absent: Systolic Murmur - GI/Abdominal Exam GI & Abdominal Exam: Normal Bowel Sounds, Soft. absent: Distended, Guarding, Rebound, Rigid, Tenderness - Extremities Exam Extremities exam: Positive for: tenderness. Negative for: calf tenderness Additional comments: Right Lower extremity: right posterior tibial and dorsalis pedis pulses present (using doppler). Right popliteal and femoral pulse palpable. Left femoral pulse present (using doppler). strength 5/5, sensation decreased (compared to upper right foot). mild discoloration noted of right lower foot. - Expanded Lower Extremities Exam Right Foot/Toe exam: erythema, full ROM, swelling (mild), tenderness (mild TTP on right foot, delphine 3rd and 5th digit). absent: crepitus, laceration, puncture wound Neuro vacular tendon exam: absent: extremity cold to touch, motor deficit - Back Exam Back exam: NORMAL INSPECTION - Neurological Exam Neurological exam: Alert, Oriented x3 - Psychiatric Exam Psychiatric exam: Normal Affect, Normal Mood - Skin Skin Exam: Dry, Warm Assessment and Plan - Assessment and Plan (Free Text) Assessment: 66 y/o male with chronic nonhealing right foot wound and PAD: -OR scheduled for saturday -NPO after midnight -further recs per Dr. Dacosta
--- NOTE | 2017-06-17 14:58 | CP.PCM.PN ---
Subjective - Date & Time of Evaluation Date of Evaluation: 06/17/17 Time of Evaluation: 12:15 - Subjective Subjective: Comfortable on a chair, no fevers, not in distress. Objective - Vital Signs/Intake and Output Vital Signs (last 24 hours): Temp Pulse Resp BP Pulse Ox 98.2 F 68 20 119/62 97 06/17/17 08:33 06/17/17 10:19 06/17/17 08:33 06/17/17 08:33 06/17/17 08:33 Intake and Output: 06/17/17 06/17/17 06:59 18:59 Intake Total 870 Output Total 1000 Balance -130 - Medications Medications: Current Medications Aspirin (Ecotrin) 81 mg PO DAILY [facility] Last Admin: 06/17/17 10:18 Dose: 81 mg Atorvastatin Calcium (Lipitor) 10 mg PO HS [facility] Last Admin: 06/16/17 21:04 Dose: 10 mg Famotidine (Pepcid) 20 mg PO DAILY [facility] Last Admin: 06/17/17 10:20 Dose: 20 mg Hydrochlorothiazide (Microzide) 12.5 mg PO DAILY [facility] Last Admin: 06/17/17 10:19 Dose: 12.5 mg Piperacillin Sod/Tazobactam Sod (Zosyn 3.375 In Ns 100ml) 100 mls @ 200 mls/hr IVPB Q8 [facility] PRN Reason: Protocol Stop: 06/19/17 22:01 Last Admin: 06/17/17 06:06 Dose: 200 mls/hr Vancomycin HCl (Vancomycin 1gm) 1 gm in 250 mls @ 167 mls/hr IVPB Q12H [facility] PRN Reason: Protocol Last Admin: 06/17/17 06:43 Dose: 167 mls/hr Insulin Human Lispro (Humalog Med) 0 units SC ACHS [facility] PRN Reason: Protocol Last Admin: 06/17/17 05:41 Dose: Not Given Insulin Lispro Protam/Lispro Human (Humalog Mix 75/25) 30 units SC QAM [facility] Last Admin: 06/16/17 09:31 Dose: Not Given Insulin Lispro Protam/Lispro Human (Humalog Mix 75/25) 20 units SC HS [facility] Last Admin: 06/15/17 22:13 Dose: 20 units Losartan Potassium (Cozaar) 100 mg PO DAILY [facility] Last Admin: 06/17/17 10:18 Dose: 100 mg Metformin HCl (Glucophage) 500 mg PO DAILY [facility] Last Admin: 06/17/17 10:18 Dose: 500 mg Metoprolol Tartrate (Lopressor) 25 mg PO BID [facility] Last Admin: 06/17/17 10:19 Dose: 25 mg Oxycodone/Acetaminophen (Percocet 5/325 Mg Tab) 1 tab PO Q6H PRN PRN Reason: Pain, moderate (4-7) Stop: 06/17/17 13:38 Last Admin: 06/16/17 14:42 Dose: 1 tab Sitagliptin Phosphate (Januvia) 50 mg PO DAILY [facility] Last Admin: 06/17/17 10:19 Dose: 50 mg - Labs Labs: 06/13/17 07:00 06/13/17 07:00 - Constitutional Appears: Chronically Ill - Head Exam Head Exam: NORMAL INSPECTION - ENT Exam ENT Exam: Mucous Membranes Moist - Neck Exam Neck Exam: absent: Meningismus - Respiratory Exam Respiratory Exam: Decreased Breath Sounds - Cardiovascular Exam Cardiovascular Exam: +S1, +S2 - GI/Abdominal Exam GI & Abdominal Exam: Soft. absent: Tenderness - Extremities Exam Additional comments: right foot with dressings in place Assessment and Plan - Assessment and Plan (Free Text) Plan: Assessment right foot chronic foot wound, infected with osteomyelitis as seen on MRI (3rd and 5th digits) in a patient with peripheral vascular disease HTN DM S/P left BKA Plan continue Vancomycin and Zosyn - patient is for revascularization this week prior to surgery on the foot will continue to monitor clinically
--- NOTE | 2017-06-17 15:04 | PN ---
DATE: SUBJECTIVE: The patient has no complaints of any chest pain. No shortness of breath. No headaches. OBJECTIVE: VITAL SIGNS: Temperature 98.2, pulse is 68, blood pressure 119/62, respirations 20. GENERAL: The patient is lying in bed, flat, comfortable. HEENT: No oral lesion. Anicteric sclerae. Moist mucosa. NECK: No JVD, adenopathy, or thyromegaly. CARDIOVASCULAR: S1 and S2, regular. No murmurs, rubs, or gallops. LUNGS: Clear to auscultation bilaterally. No wheeze, rales, or rhonchi. ABDOMEN: Bowel sounds are positive, soft, nontender and nondistended. EXTREMITIES: Left BKA. LABORATORY DATA: White count is 8.2, hemoglobin 11.5. Creatinine 1.2. ASSESSMENT: 1. 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 2. Diabetes type 2. 3. Dyslipidemia. 4. Hypertension. 5. Peripheral arterial disease. 6. Left below-knee amputation. PLAN: The patient is currently comfortable. He is on losartan. He is going to continue on metformin for diabetes and insulin for diabetes as well. The patient is scheduled for procedure with surgery. The patient is on Januvia for diabetes. He is on hydrochlorothiazide for hypertension. He is on Percocet for pain. The patient is on vancomycin for antibiotics. Kaiser Bowers MD
--- NOTE | 2017-06-17 15:39 | CP.PCM.PN ---
Addendum entered and electronically signed by Gemma Blake DPM 06/19/17 08:59 : pt scheduled for right foot 3rd digit partial vs full amputation on at 11am Anti-coags to be held NPO past midnight tonight Podiatry will continue to follow patient Original Note: <Gemma Blake - Last Filed: 06/17/17 15:34> Subjective - Date & Time of Evaluation Date of Evaluation: 06/17/17 Time of Evaluation: 15:34 - Subjective Subjective: Podiatry Progress Note- Dr. Zeng 66 y/o male seen at bedside this morning for right diabetic foot ulcerations to 3rd and 5th toes. Pt is resting comfortably in bed at time of visit. Denies any overnight events. Admits to having mild pain that comes and goes, mostly present when something touches the toes. States he will be going for his bypass surgery tomorrow and awaits the outcome. Denies F/C/N/V/CP/SOB Objective - Vital Signs/Intake and Output Vital Signs (last 24 hours): Temp Pulse Resp BP Pulse Ox 98.2 F 68 20 119/62 97 06/17/17 08:33 06/17/17 10:19 06/17/17 08:33 06/17/17 08:33 06/17/17 08:33 Intake and Output: 06/17/17 06/17/17 06:59 18:59 Intake Total 870 720 Output Total 1000 Balance -130 720 - Medications Medications: Current Medications Aspirin (Ecotrin) 81 mg PO DAILY [facility] Last Admin: 06/17/17 10:18 Dose: 81 mg Atorvastatin Calcium (Lipitor) 10 mg PO HS [facility] Last Admin: 06/16/17 21:04 Dose: 10 mg Famotidine (Pepcid) 20 mg PO DAILY [facility] Last Admin: 06/17/17 10:20 Dose: 20 mg Hydrochlorothiazide (Microzide) 12.5 mg PO DAILY [facility] Last Admin: 06/17/17 10:19 Dose: 12.5 mg Piperacillin Sod/Tazobactam Sod (Zosyn 3.375 In Ns 100ml) 100 mls @ 200 mls/hr IVPB Q8 [facility] PRN Reason: Protocol Stop: 06/19/17 22:01 Last Admin: 06/17/17 13:13 Dose: 200 mls/hr Vancomycin HCl (Vancomycin 1gm) 1 gm in 250 mls @ 167 mls/hr IVPB Q12H [facility] PRN Reason: Protocol Last Admin: 06/17/17 06:43 Dose: 167 mls/hr Insulin Human Lispro (Humalog Med) 0 units SC ACHS [facility] PRN Reason: Protocol Last Admin: 06/17/17 07:30 Dose: Not Given Insulin Lispro Protam/Lispro Human (Humalog Mix 75/25) 30 units SC QAM [facility] Last Admin: 06/16/17 09:31 Dose: Not Given Insulin Lispro Protam/Lispro Human (Humalog Mix 75/25) 20 units SC HS [facility] Last Admin: 06/15/17 22:13 Dose: 20 units Losartan Potassium (Cozaar) 100 mg PO DAILY [facility] Last Admin: 06/17/17 10:18 Dose: 100 mg Metformin HCl (Glucophage) 500 mg PO DAILY [facility] Last Admin: 06/17/17 10:18 Dose: 500 mg Metoprolol Tartrate (Lopressor) 25 mg PO BID [facility] Last Admin: 06/17/17 10:19 Dose: 25 mg Sitagliptin Phosphate (Januvia) 50 mg PO DAILY [facility] Last Admin: 06/17/17 10:19 Dose: 50 mg - Labs Labs: 06/13/17 07:00 06/13/17 07:00 - Constitutional Appears: Well, Non-toxic, No Acute Distress - Extremities Exam Additional comments: Right lower extremity focused- LLE BKA with prosthetic noted at level of knee Vasc: DP and PT nonpalpable, temperature cool to cool, edema noted to the right LE, CFT delayed to the digits and absent to 3rd digit at site of ulceration Derm: Ulceration located on the plantar aspect of right 3rd digit measuring approximately 2 x 2 x 0.3 cm with mostly fibrotic wound base; probes deep to bone. Mild necrotic skin changes noted to wound bed. No fluctuance, no active drainage, no malodor. Second ulceration located on the medial aspect of the 5th digit measuring 1.5 x 1.5 x .1; wound base is a mixture of fibrotic and necrotic tissue with minimal serous drainage noted on bandage, no fluctuance, no probe to bone, no undermining, and no tunneling. Mild erythema noted to the surrounding periwound areas Ortho: mild tenderness noted to palpation of R foot 3rd digit; no tenderness noted to palpation of 5th digit Neuro: protective and gross sensation diminished - Neurological Exam Neurological Exam: Alert, Awake, Oriented x3 - Psychiatric Exam Psychiatric exam: Normal Affect, Normal Mood Assessment and Plan - Assessment and Plan (Free Text) Assessment: 66 y/o male with right diabetic foot ulcerations to the 3rd and 5th digits, with clinical osteomyelitis of the right 3rd digit Plan: Pt seen and evaluated at bedside Discussed with attending Dr. Zeng Labs and vitals reviewed- afebrile, NNL Wounds cleansed with saline and dressed with Maxorb and DSD Pt to go for right foot dorsalis pedis bypass with graft tomorrow with Dr. Dacosta Plan for possible amputation of R 3rd digit on Saturday or pending outcome of bypass Continue IV abx as per ID Podiatry will continue to follow patient <Nicolas Gil - Last Filed: 06/20/17 11:36> Objective - Vital Signs/Intake and Output Vital Signs (last 24 hours): Temp Pulse Resp BP Pulse Ox 98 F 69 19 144/59 L 99 06/20/17 04:00 06/20/17 08:00 06/20/17 08:00 06/20/17 08:00 06/20/17 08:00 Intake and Output: 06/20/17 06/20/17 06:59 18:59 Intake Total 700 Output Total 665 Balance 35 - Medications Medications: Current Medications Aspirin (Ecotrin) 81 mg PO DAILY [facility] Last Admin: 06/18/17 09:10 Dose: Not Given Atorvastatin Calcium (Lipitor) 10 mg PO HS [facility] Last Admin: 06/19/17 21:42 Dose: 10 mg Benzocaine/Menthol (Cepacol Sore Throat) 1 main MT Q2H PRN PRN Reason: Sore Throat Last Admin: 06/20/17 00:09 Dose: 1 main Famotidine (Pepcid) 20 mg PO 1000,2200 [facility] Last Admin: 06/19/17 21:42 Dose: 20 mg Hydrochlorothiazide (Microzide) 12.5 mg PO DAILY [facility] Last Admin: 06/18/17 09:10 Dose: Not Given Hydromorphone HCl (Dilaudid) 0.5 mg IVP Q4H PRN PRN Reason: Pain, severe (8-10) Last Admin: 06/18/17 22:15 Dose: 0.5 mg Vancomycin HCl (Vancomycin 1gm) 1 gm in 250 mls @ 167 mls/hr IVPB Q12H [facility] PRN Reason: Protocol Last Admin: 06/20/17 05:31 Dose: 167 mls/hr Acetaminophen (Ofirmev) 1,000 mg in 100 mls @ 400 mls/hr IVPB Q6H PRN PRN Reason: Pain, Mild (1-3) Stop: 06/20/17 16:45 Insulin Human Lispro (Humalog Med) 0 units SC ACHS [facility] PRN Reason: Protocol Last Admin: 06/19/17 21:46 Dose: Not Given Insulin Lispro Protam/Lispro Human (Humalog Mix 75/25) 30 units SC QAM [facility] Last Admin: 06/19/17 09:30 Dose: Not Given Insulin Lispro Protam/Lispro Human (Humalog Mix 75/25) 20 units SC HS [facility] Last Admin: 06/19/17 21:47 Dose: Not Given Losartan Potassium (Cozaar) 100 mg PO DAILY [facility] Last Admin: 06/18/17 09:10 Dose: Not Given Metformin HCl (Glucophage) 500 mg PO DAILY [facility] Last Admin: 06/19/17 10:14 Dose: 500 mg Metoprolol Tartrate (Lopressor) 25 mg PO BID [facility] Last Admin: 06/19/17 17:18 Dose: 25 mg Ondansetron HCl (Zofran Inj) 4 mg IVP Q6H PRN PRN Reason: Nausea/Vomiting Oxycodone HCl (Oxycodone Immediate Release Tab) 5 mg PO Q4H PRN PRN Reason: Pain, moderate (4-7) Pantoprazole Sodium (Protonix Ec Tab) 40 mg PO 0600 [facility] Last Admin: 06/20/17 05:30 Dose: 40 mg Sitagliptin Phosphate (Januvia) 50 mg PO DAILY [facility] Last Admin: 06/18/17 09:10 Dose: Not Given - Labs Labs: 06/20/17 05:50 06/20/17 05:50 PT 14.2 SECONDS (9.4-12.5) H 06/18/17 05:30 INR 1.23 (0.93-1.08) H 06/18/17 05:30 APTT 28.9 Seconds (25.1-36.5) 06/18/17 05:30 Attending/Attestation - Attestation I have personally seen and examined this patient.: Yes I have fully participated in the care of the patient.: Yes I have reviewed all pertinent clinical information, including history, physical exam and plan: Yes
[2017-06-18] MEDS: Piperacillin/Tazobact 3.375 gm 100 ML IVPB SCH ×2 (05:43→21:42)
[2017-06-18 06:31] LABS: BASO # 0.02 K/mm3 (0.0-2.0); BASO % 0.3 % (0.0-3.0); EOS # 0.4 (0.0-0.7); EOS % 5.6 % (1.5-5.0); GRAN # 4.93 (1.4-6.5); GRAN % 68.8 % (50.0-68.0); HEMOGLOBIN 10.9 g/dL (14.0-18.0); LYMPH # 1.2 (1.2-3.4); LYMPH % 16.7 % (22.0-35.0); MEAN CELL VOLUME 85.4 fl (80.0-105.0); MEAN CORPUSCULAR HEMOGLOBIN 27.4 pg (25.0-35.0); MEAN CORPUSCULAR HGB CONC 32.1 g/dl (31.0-37.0); MEAN PLATELET VOLUME 10.9 fl (7.0-11.0); MONO # 0.6 (0.1-0.6); MONO % 8.6 % (1.0-6.0); RBC 3.98 10^6/uL (3.5-6.1); RED CELL DISTRIBUTION WIDTH 13.1 % (11.5-14.5); WHITE BLOOD COUNT 7.2 10^3/ul (4.5-11.0)
[2017-06-18] MEDS: Vancomycin 1gm in NS 250ml 1 GM/250 ML BAG IVPB SCH ×2 (06:37→18:27)
[2017-06-18 06:57] LABS: INR 1.23 (0.93-1.08); PARTIAL THROMBOPLASTIN TIME 28.9 Seconds (25.1-36.5); PROTHROMBIN TIME 14.2 SECONDS (9.4-12.5)
[2017-06-18 07:12] LABS: ALBUMIN 2.9 g/dL (3.0-4.8); ALT/SGPT 34 U/L (7-56); AST/SGOT 26 U/L (17-59); BLOOD UREA NITROGEN 25 mg/dL (7-21); CALCIUM 9.1 mg/dL (8.4-10.5); GFR AFRICAN-AMERICAN > 60; GFR NON-AFRICAN AMERICAN 55
[2017-06-18] MEDS ORDERED: Protamine 50mg/5mL Inj IV ONE (07:52)
[2017-06-18] MEDS ORDERED: Iohexol 240 (50 ml) ONE (07:53)
[2017-06-18] MEDS ORDERED: Heparin 10,000 Units/ml ONE (07:53)
[2017-06-18] MEDS: Insulin Lispro (humaLOG) MEDIUM Coverage SC SCH ×2 (08:11→22:07)
--- NOTE | 2017-06-18 09:11 | PN ---
DATE: 06/13/2017 REASON FOR CONSULTATION AND FOLLOWUP: Cardiac evaluation, risk stratification, preop evaluation for vascular surgery. SUBJECTIVE: The patient denies any chest pain, shortness of breath or any palpitation. OBJECTIVE: GENERAL: Not in apparent distress. VITAL SIGNS: As follows: Temperature afebrile, heart rate 68, blood pressure 119/62. HEENT: PERRLA. Extraocular muscles intact. NECK: Supple. No carotid bruit or thyromegaly. CHEST: Clear to auscultation. HEART: S1, S2 regular. ABDOMEN: Soft. EXTREMITIES: Clubbing and cyanosis negative. LABORATORY DATA: Blood workup as follows: WBC 8.3, hemoglobin , hematocrit 36.2, platelet count 141. Chemistry shows sodium 139, potassium 3.7, chloride 103, carbon dioxide 20, anion gap of 11, BUN 22, creatinine 1.2. Patient had a stress test dated 06/14/2017 that showed ejection fraction 63%, normal myocardial perfusion study. Patient had echocardiography done 06/13/2017 that showed ejection fraction 55%, mild aortic sclerosis, mild tricuspid regurgitation, RV systolic pressure 32, [id number] mitral regurgitation,aortic sclerosis versus mild aortic stenosis, trace pulmonary insufficiency, trace aortic regurgitation, peripheral arterial disease, foot ulcers, for OR tomorrow. RISK STRATIFICATION: Patient's mental status is essentially normal. Severe peripheral arterial disease requiring vascular surgery for nonhealing right foot. Patient stress test and essentially normal preserved left ventricular function by echo. Patient is cleared from cardiology point of view to comorbidity. No absolute contraindication of evidence of ischemia or arrhythmia. We will clear the patient for surgery. Continue antihypertensive medication, continue aspirin, continue low-dose beta-alireza as ordered. We will follow with you. We will also put . Patient is cleared for surgery. Continue beta-alireza and keep n.p.o. for procedures. Thank you, Dr. Keller for providing us the opportunity in taking care of Prasad Perera. Rosita Marsh MD
--- NOTE | 2017-06-18 09:17 | RAD ---
HISTORY: PRE OP COMPARISON: No prior. Study is rotated towards the right FINDINGS: LUNGS: No consolidation. Strandy coalescent bronchovascular markings left infrahilar and less conspicuous right suprahilar location -the latter likely summed with prominent asymmetrical right costo cartilaginous junctional calcifications. PLEURA: No significant pleural effusion identified, no pneumothorax apparent. CARDIOVASCULAR: Probable minimal cardiomegaly OSSEOUS STRUCTURES: No significant abnormalities. VISUALIZED UPPER ABDOMEN: Normal. OTHER FINDINGS: None. IMPRESSION: No consolidative infiltrate Nonspecific patchy mild prominence of coalescent bronchovascular markings as above .
[2017-06-18] MEDS ORDERED: Midazolam 2 MG/2 ML VIAL ONE (10:00)
[2017-06-18] MEDS ORDERED: Propofol 10 mg/ml Inj (20 ML) ONE ×2 (10:00→13:46)
[2017-06-18] MEDS ORDERED: Rocuronium 10 mg/ml (5 ml) ONE ×3 (10:01→14:19)
--- NOTE | 2017-06-18 10:51 | PN ---
DATE: 06/18/2017 REASON FOR CONSULTATION: Followup cardiac evaluation, risk stratification, preop evaluation for vascular surgery. SUBJECTIVE: The patient denies any chest pain, shortness of breath, any palpitation. He is n.p.o. for lower extremity bypass. OBJECTIVE: GENERAL: Not in any apparent distress, lying flat on the bed. VITAL SIGNS: Temperature afebrile, heart rate 71, blood pressure 133/62. HEENT: PERRLA. Extraocular muscles intact. NECK: Supple. No carotid bruit. No thyromegaly. CHEST: Clear to auscultation. HEART: S1 and S2 regular. ABDOMEN: Soft. EXTREMITIES: Clubbing and cyanosis negative. LABORATORY DATA: Blood workup as follows; WBC 7.8, hemoglobin 10.9, hematocrit 34.0, platelet count 170. Chemistry shows sodium 141, potassium 4.2, chloride 105, carbon dioxide 29, anion gap of 11, BUN 25, creatinine 1.3. IMPRESSION: Peripheral arterial disease, for right femoral-popliteal bypass. Negative stress test preoperatively. Echocardiogram shows a preserved left ventricular function. RECOMMENDATION: The patient is cleared from cardiac point of view to go for vascular surgery as moderate risk. Interim, continue perioperative beta alireza. Continue aspirin. Continue losartan. Continue atorvastatin. We will follow with you. Thank you, Dr. Keller for providing us the opportunity in taking of the patient, Prasad Perera Jr. Discussed with vice president of customer service taking care of the patient and the patient is cleared from cardiac point of view with moderate risk. We will repeat the blood workup in the morning. Rosita Marsh MD
[2017-06-18] MEDS ORDERED: ePHEDrine 50 mg/ml Inj ONE (11:00)
--- NOTE | 2017-06-18 14:23 | PN ---
DATE: SUBJECTIVE: The patient is a 66-year-old, seen and examined. Sleepy, but arousable. PHYSICAL EXAMINATION VITAL SIGNS: He is afebrile, pulse 71, respirations 18, blood pressure 156/66. LUNGS: Bilateral good airflow. No rhonchi or crackle. HEART: S1 and S2 audible. ABDOMEN: Soft, nontender. No rebound, no guarding. NEUROLOGIC: He is awake, alert, oriented, communicative. LABORATORY DATA: WBC is 7.2, hemoglobin 10.9, hematocrit 34, platelets 170,000. Chemistry: Sodium 141, potassium 4.2, chloride 105, CO2 29, BUN 25, creatinine 1.3, blood sugar of 171. Urinalysis is unremarkable. ASSESSMENT 1. Severe peripheral vascular disease. 2. Status post left below-knee amputation. 3. Status post right femoropopliteal bypass. 4. Right third and fifth toe diabetic ulcer. 5. Hypertension. 6. Hyperlipidemia. PLAN: The patient had fem-pop bypass done, given analgesic and monitor his blood sugar closely and he is on Januvia, Lipitor. He is getting Zosyn and vancomycin. We will continue that and we will follow outpatient. Berhane Keller MD
[2017-06-18] MEDS ORDERED: Glycopyrrolate 0.2 mg/ml (2ml vial) ONE (15:55)
[2017-06-18] MEDS ORDERED: Neostigmine Methylsulfate 3mg/3ml Syringe IV ONE (15:57)
--- NOTE | 2017-06-18 16:22 | PCM.SURG1 ---
Surgeon's Initial Post Op Note - Surgeon's Notes Surgeon: Dr. Dacosta Asbestos Microscopist: Sher Patricia PGY2, Andriy PGY3 Type of Anesthesia: General Endo Pre-Operative Diagnosis: R peripheral vascular disease Operative Findings: calcified R popliteal artery, Good distal pulses post op. Post-Operative Diagnosis: Same Operation Performed: R popliteal -Posterior pedalis bypass with Saphenous vein graft Specimen/Specimens Removed: None Estimated Blood Loss: EBL {In ML}: 1,000 Blood Products Given: PRBC Drains Used: Hayden Moody Post-Op Condition: Good Date of Surgery/Procedure: 06/18/17 Time of Surgery/Procedure: 16:22
[2017-06-18] MEDS ORDERED: HYDROmorphone 0.5 mg/0.5 ml ISec IVP PRN ×2 (16:29→16:43)
[2017-06-18] MEDS ORDERED: Lactated Ringer's 1,000 ML IV SCH ×2 (16:30→16:45)
[2017-06-18] MEDS ORDERED: oxyCODONE 5 mg Immediate Release Tab PO PRN (16:40)
--- NOTE | 2017-06-18 16:52 | CP.PCM.CON ---
<Herb Dinh - Last Filed: 06/18/17 17:28> History of Present Illness - History of Present Illness History of Present Illness: 66 M with PMH left BKA, PVD, DM2, HTN, presenting status post R popliteal - Posterior pedalis bypass with Saphenous vein graft. Patient will be monitored in the ICU post procedure. Patient complains of nausea. Patient resting comfortably, denies any chest pain, shortness of breath, fever, chills, or any other complaints at this time. PCP: Dr Mckeon PMH: DM2 - insulin dependent, Severe PVD, HTN PSH: left BKA (5 years ago at [facility]) - has left leg prosthesis , broken jaw many years ago All: tape - rash FH: denies SH: lives with family. Uses wheelchair or cane at home. Denies current smoking, drinking, alcohol use. Previously a cigar smoker. Home meds: See [facility] Review of Systems - Constitutional Constitutional: absent: Chills, Fever - EENT Nose/Mouth/Throat: absent: Nasal Congestion - Cardiovascular Cardiovascular: absent: Chest Pain, Dyspnea, Edema, Irregular Heart Rhythm, Radiating Pain - Respiratory Respiratory: absent: Cough, Dyspnea, Dyspnea on Exertion, Wheezing, Pain on Inspiration - Gastrointestinal Gastrointestinal: Nausea. absent: Abdominal Pain, Constipation, Diarrhea, Vomiting Past Patient History - Infectious Disease Hx of Infectious Diseases: None - Past Social History Smoking Status: Former Smoker - CARDIAC Hx Hypertension: Yes - PULMONARY Hx Respiratory Disorders: No - HEENT Hx HEENT Problems: No - ENDOCRINE/METABOLIC Hx Diabetes Mellitus Type 2: Yes - HEMATOLOGICAL/ONCOLOGICAL Hx Blood Transfusions: No Hx Blood Transfusion Reaction: No - MUSCULOSKELETAL/RHEUMATOLOGICAL Hx Falls: Yes - GENITOURINARY/GYNECOLOGICAL Hx Genitourinary Disorders: No - PSYCHIATRIC Hx Psychophysiologic Disorder: No Hx Substance Use: No - SURGICAL HISTORY Hx Surgeries: Yes - ANESTHESIA Hx Anesthesia Reactions: No Hx Malignant Hyperthermia: No Meds Allergies/Adverse Reactions: Allergies Allergy/AdvReac Type Severity Reaction Status Date / Time tape Allergy RASH Uncoded 06/12/17 15:07 - Medications Medications: Current Medications Aspirin (Ecotrin) 81 mg PO DAILY [facility] Last Admin: 06/18/17 09:10 Dose: Not Given Atorvastatin Calcium (Lipitor) 10 mg PO HS [facility] Last Admin: 06/17/17 21:40 Dose: 10 mg Enoxaparin Sodium (Lovenox) 30 mg SC DAILY [facility] PRN Reason: Protocol Famotidine (Pepcid) 20 mg PO DAILY [facility] Last Admin: 06/18/17 09:10 Dose: Not Given Hydrochlorothiazide (Microzide) 12.5 mg PO DAILY [facility] Last Admin: 06/18/17 09:10 Dose: Not Given Hydromorphone HCl (Dilaudid) 0.5 mg IVP Q15M PRN PRN Reason: Pain, moderate (4-7) Stop: 06/18/17 18:29 Hydromorphone HCl (Dilaudid) 0.5 mg IVP Q4H PRN PRN Reason: Pain, severe (8-10) Piperacillin Sod/Tazobactam Sod (Zosyn 3.375 In Ns 100ml) 100 mls @ 200 mls/hr IVPB Q8 [facility] PRN Reason: Protocol Stop: 06/19/17 22:01 Last Admin: 06/18/17 05:43 Dose: 200 mls/hr Vancomycin HCl (Vancomycin 1gm) 1 gm in 250 mls @ 167 mls/hr IVPB Q12H [facility] PRN Reason: Protocol Last Admin: 06/18/17 06:37 Dose: 167 mls/hr Lactated Ringer's (Lactated Ringer's) 1,000 mls @ 75 mls/hr IV .[id number] [facility] Stop: 06/18/17 18:31 Acetaminophen (Ofirmev) 1,000 mg in 100 mls @ 400 mls/hr IVPB Q6H PRN PRN Reason: Pain, Mild (1-3) Stop: 06/20/17 16:45 Lactated Ringer's (Lactated Ringer's) 1,000 mls @ 50 mls/hr IV .Q20H [facility] Insulin Human Lispro (Humalog Med) 0 units SC ACHS [facility] PRN Reason: Protocol Last Admin: 06/18/17 08:11 Dose: Not Given Insulin Lispro Protam/Lispro Human (Humalog Mix 75/25) 30 units SC QAM [facility] Last Admin: 06/16/17 09:31 Dose: Not Given Insulin Lispro Protam/Lispro Human (Humalog Mix 75/25) 20 units SC HS [facility] Last Admin: 03/17/18 22:13 Dose: 20 units Losartan Potassium (Cozaar) 100 mg PO DAILY [facility] Last Admin: 06/18/17 09:10 Dose: Not Given Metformin HCl (Glucophage) 500 mg PO DAILY [facility] Last Admin: 06/17/17 10:18 Dose: 500 mg Metoprolol Tartrate (Lopressor) 25 mg PO BID [facility] Last Admin: 06/18/17 09:06 Dose: 25 mg Ondansetron HCl (Zofran Inj) 4 mg IVP ONCE PRN PRN Reason: Nausea/Vomiting Oxycodone HCl (Oxycodone Immediate Release Tab) 5 mg PO Q4H PRN PRN Reason: Pain, moderate (4-7) Sitagliptin Phosphate (Januvia) 50 mg PO DAILY [facility] Last Admin: 06/18/17 09:10 Dose: Not Given Physical Exam - Constitutional Appears: Non-toxic, No Acute Distress - Head Exam Head Exam: ATRAUMATIC, NORMAL INSPECTION, NORMOCEPHALIC - Eye Exam Eye Exam: Normal appearance, PERRL - ENT Exam ENT Exam: Mucous Membranes Dry - Neck Exam Neck exam: Positive for: Normal Inspection - Respiratory Exam Respiratory Exam: Clear to Auscultation Bilateral, NORMAL BREATHING PATTERN - Cardiovascular Exam Cardiovascular Exam: REGULAR RHYTHM, +S1, +S2 - GI/Abdominal Exam GI & Abdominal Exam: Normal Bowel Sounds, Soft. absent: Tenderness - Extremities Exam Extremities exam: Positive for: pedal pulses present (ped pulses in tact on right lower extremity ) Additional comments: Left BKA, right lower leg with drainage status post procedure - Neurological Exam Neurological exam: Alert, Oriented x3 Results - Vital Signs Recent Vital Signs: Last Vital Signs Temp 98.2 F 06/18/17 09:10 Pulse 71 06/18/17 09:10 Resp 18 06/18/17 09:10 BP 156/66 H 06/18/17 09:10 Pulse Ox 95 06/18/17 09:10 - Labs Result Diagrams: 06/18/17 17:05 06/18/17 17:05 Labs: Laboratory Results - last 24 hr 06/17/17 06/17/17 06/18/17 12:15 21:52 05:30 WBC 7.2 RBC 3.98 Hgb 10.9 L Hct 34.0 L MCV 85.4 MCH 27.4 MCHC 32.1 RDW 13.1 Plt Count 170 MPV 10.9 Gran % 68.8 H Lymph % (Auto) 16.7 L Wheeler % (Auto) 8.6 H Eos % (Auto) 5.6 H Baso % (Auto) 0.3 Gran # 4.93 Lymph # (Auto) 1.2 Wheeler # (Auto) 0.6 Eos # (Auto) 0.4 Baso # (Auto) 0.02 PT INR APTT Sodium Potassium Chloride Carbon Dioxide Anion Gap BUN Creatinine Est GFR ( Amer) Est GFR (Non-Af Amer) POC Glucose (mg/dL) 148 H Random Glucose Calcium Total Bilirubin AST ALT Alkaline Phosphatase Total Protein Albumin Globulin Albumin/Globulin Ratio Blood Type O POSITIVE Antibody Screen Negative Crossmatch See Detail BBK History Checked No verified bt 06/18/17 06/18/17 06/18/17 05:30 05:30 07:13 WBC RBC Hgb Hct MCV MCH MCHC RDW Plt Count MPV Gran % Lymph % (Auto) Wheeler % (Auto) Eos % (Auto) Baso % (Auto) Gran # Lymph # (Auto) Wheeler # (Auto) Eos # (Auto) Baso # (Auto) PT 14.2 H INR 1.23 H APTT 28.9 Sodium 141 Potassium 4.2 Chloride 105 Carbon Dioxide 29 Anion Gap 11 BUN 25 H Creatinine 1.3 Est GFR ( Amer) > 60 Est GFR (Non-Af Amer) 55 POC Glucose (mg/dL) 171 H Random Glucose 177 H Calcium 9.1 Total Bilirubin 0.3 AST 26 ALT 34 Alkaline Phosphatase 61 Total Protein 6.0 Albumin 2.9 L Globulin 3.1 Albumin/Globulin Ratio 1.0 L Blood Type Antibody Screen Crossmatch BBK History Checked Assessment & Plan - Assessment and Plan (Free Text) Assessment: 66 M with PMH left BKA, PVD, DM2, HTN, presenting status post R popliteal - Posterior pedalis bypass with Saphenous vein graft. Patient will be monitored in the ICU post procedure. Patient slightly hypotensive with leukocytosis. Plan: 66 M with PMH left BKA, PVD, DM2, HTN, presenting status post R popliteal - Posterior pedalis bypass with Saphenous vein graft. Patient will be monitored in the ICU post procedure. Patient slightly hypotensive with leukocytosis. Plan -repeat CBC in evening -continue fluids -hold antihypertensives -hold oral hypoglycemics -insulin sliding scale -pedal puls checks Q2 -continue abx,ID following -wound care post procedure per surgery -monitor kidney function -check labs daily with coags -hold aspirin, lovenox -continue lipitor -GI ppx <Fito Hansen - Last Filed: 06/18/17 17:49> Meds - Medications Medications: Current Medications Aspirin (Ecotrin) 81 mg PO DAILY [facility] Last Admin: 06/18/17 09:10 Dose: Not Given Atorvastatin Calcium (Lipitor) 10 mg PO HS [facility] Last Admin: 06/17/17 21:40 Dose: 10 mg Famotidine (Pepcid) 20 mg PO DAILY [facility] Last Admin: 06/18/17 09:10 Dose: Not Given Hydrochlorothiazide (Microzide) 12.5 mg PO DAILY [facility] Last Admin: 06/18/17 09:10 Dose: Not Given Hydromorphone HCl (Dilaudid) 0.5 mg IVP Q15M PRN PRN Reason: Pain, moderate (4-7) Stop: 06/18/17 18:29 Hydromorphone HCl (Dilaudid) 0.5 mg IVP Q4H PRN PRN Reason: Pain, severe (8-10) Piperacillin Sod/Tazobactam Sod (Zosyn 3.375 In Ns 100ml) 100 mls @ 200 mls/hr IVPB Q8 [facility] PRN Reason: Protocol Stop: 06/19/17 22:01 Last Admin: 06/18/17 05:43 Dose: 200 mls/hr Vancomycin HCl (Vancomycin 1gm) 1 gm in 250 mls @ 167 mls/hr IVPB Q12H [facility] PRN Reason: Protocol Last Admin: 06/18/17 06:37 Dose: 167 mls/hr Lactated Ringer's (Lactated Ringer's) 1,000 mls @ 75 mls/hr IV .[id number] [facility] Stop: 06/18/17 18:31 Acetaminophen (Ofirmev) 1,000 mg in 100 mls @ 400 mls/hr IVPB Q6H PRN PRN Reason: Pain, Mild (1-3) Stop: 06/20/17 16:45 Lactated Ringer's (Lactated Ringer's) 1,000 mls @ 50 mls/hr IV .Q20H [facility] Insulin Human Lispro (Humalog Med) 0 units SC ACHS [facility] PRN Reason: Protocol Last Admin: 06/18/17 08:11 Dose: Not Given Insulin Lispro Protam/Lispro Human (Humalog Mix 75/25) 30 units SC QAM [facility] Last Admin: 06/16/17 09:31 Dose: Not Given Insulin Lispro Protam/Lispro Human (Humalog Mix 75/25) 20 units SC HS [facility] Last Admin: 06/15/17 22:13 Dose: 20 units Losartan Potassium (Cozaar) 100 mg PO DAILY [facility] Last Admin: 06/18/17 09:10 Dose: Not Given Metformin HCl (Glucophage) 500 mg PO DAILY [facility] Last Admin: 06/17/17 10:18 Dose: 500 mg Metoprolol Tartrate (Lopressor) 25 mg PO BID [facility] Last Admin: 06/18/17 09:06 Dose: 25 mg Ondansetron HCl (Zofran Inj) 4 mg IVP ONCE PRN PRN Reason: Nausea/Vomiting Oxycodone HCl (Oxycodone Immediate Release Tab) 5 mg PO Q4H PRN PRN Reason: Pain, moderate (4-7) Sitagliptin Phosphate (Januvia) 50 mg PO DAILY [facility] Last Admin: 06/18/17 09:10 Dose: Not Given Results - Vital Signs Recent Vital Signs: Last Vital Signs Temp 98.2 F 06/18/17 09:10 Pulse 71 06/18/17 09:10 Resp 18 06/18/17 09:10 BP 156/66 H 06/18/17 09:10 Pulse Ox 95 06/18/17 09:10 - Labs Result Diagrams: 06/18/17 17:05 06/18/17 17:05 Labs: Laboratory Results - last 24 hr 06/17/17 06/17/17 06/18/17 12:15 21:52 05:30 WBC 7.2 RBC 3.98 Hgb 10.9 L Hct 34.0 L MCV 85.4 MCH 27.4 MCHC 32.1 RDW 13.1 Plt Count 170 MPV 10.9 Gran % 68.8 H Lymph % (Auto) 16.7 L Wheeler % (Auto) 8.6 H Eos % (Auto) 5.6 H Baso % (Auto) 0.3 Gran # 4.93 Lymph # (Auto) 1.2 Wheeler # (Auto) 0.6 Eos # (Auto) 0.4 Baso # (Auto) 0.02 PT INR APTT Sodium Potassium Chloride Carbon Dioxide Anion Gap BUN Creatinine Est GFR ( Amer) Est GFR (Non-Af Amer) POC Glucose (mg/dL) 148 H Random Glucose Calcium Phosphorus Magnesium Total Bilirubin AST ALT Alkaline Phosphatase Total Protein Albumin Globulin Albumin/Globulin Ratio Blood Type O POSITIVE Antibody Screen Negative Crossmatch See Detail BBK History Checked No verified bt 06/18/17 06/18/17 06/18/17 05:30 05:30 07:13 WBC RBC Hgb Hct MCV MCH MCHC RDW Plt Count MPV Gran % Lymph % (Auto) Wheeler % (Auto) Eos % (Auto) Baso % (Auto) Gran # Lymph # (Auto) Wheeler # (Auto) Eos # (Auto) Baso # (Auto) PT 14.2 H INR 1.23 H APTT 28.9 Sodium 141 Potassium 4.2 Chloride 105 Carbon Dioxide 29 Anion Gap 11 BUN 25 H Creatinine 1.3 Est GFR ( Amer) > 60 Est GFR (Non-Af Amer) 55 POC Glucose (mg/dL) 171 H Random Glucose 177 H Calcium 9.1 Phosphorus Magnesium Total Bilirubin 0.3 AST 26 ALT 34 Alkaline Phosphatase 61 Total Protein 6.0 Albumin 2.9 L Globulin 3.1 Albumin/Globulin Ratio 1.0 L Blood Type Antibody Screen Crossmatch BBK History Checked 06/18/17 06/18/17 17:05 17:05 WBC 15.5 H D RBC 3.41 L Hgb 9.6 L Hct 29.0 L MCV 85.0 MCH 28.2 MCHC 33.1 RDW 13.7 Plt Count 158 MPV 10.3 Gran % Lymph % (Auto) Wheeler % (Auto) Eos % (Auto) Baso % (Auto) Gran # Lymph # (Auto) Wheeler # (Auto) Eos # (Auto) Baso # (Auto) PT INR APTT Sodium 138 Potassium 4.2 Chloride 112 H Carbon Dioxide 19 L Anion Gap 12 BUN 19 Creatinine 1.0 Est GFR ( Amer) > 60 Est GFR (Non-Af Amer) > 60 POC Glucose (mg/dL) Random Glucose 231 H Calcium 7.3 L Phosphorus 3.3 Magnesium 1.5 L Total Bilirubin AST ALT Alkaline Phosphatase Total Protein Albumin Globulin Albumin/Globulin Ratio Blood Type Antibody Screen Crossmatch BBK History Checked Attending/Attestation - Attestation I have personally seen and examined this patient.: Yes I have fully participated in the care of the patient.: Yes I have reviewed all pertinent clinical information: Yes Notes (Text): 06/18/17 17:48 The patient was seen and examined at the bedside. Patient care was discussed with resident . Medical records, lab studies, and imaging were reviewed and management issues were discussed and formulated. Agree with above treatment plans as outlined in 's note CCM eval time 25min
[2017-06-18 17:09] LABS: HEMOGLOBIN 9.6 g/dL (14.0-18.0); MEAN CORPUSCULAR HEMOGLOBIN 28.2 pg (25.0-35.0); MEAN CORPUSCULAR HGB CONC 33.1 g/dl (31.0-37.0); MEAN PLATELET VOLUME 10.3 fl (7.0-11.0); RBC 3.41 10^6/uL (3.5-6.1); RED CELL DISTRIBUTION WIDTH 13.7 % (11.5-14.5); WHITE BLOOD COUNT 15.5 10^3/ul (4.5-11.0)
[2017-06-18 17:19] LABS: BLOOD UREA NITROGEN 19 mg/dL (7-21); CALCIUM 7.3 mg/dL (8.4-10.5); GFR AFRICAN-AMERICAN > 60; GFR NON-AFRICAN AMERICAN > 60
--- NOTE | 2017-06-18 20:12 | OP ---
PROCEDURE DATE: 06/18/2017 PREOPERATIVE DIAGNOSES: Peripheral vascular disease, diabetic arteriopathy, right foot nonhealing ulcer and osteomyelitis. PROCEDURE: Right above-knee popliteal to posterior tibial artery bypass using reverse greater saphenous vein, on-table angiogram. SURGEON: Winnie Dacosta MD. TYPE OF ANESTHESIA: General. DESCRIPTION OF PROCEDURE: The patient was brought to the OR and placed supine on the OR table. After adequate general anesthesia had been accomplished, the entire lower abdomen and right leg was prepped with ChloraPrep and draped out as a sterile field. A groin incision was made. The greater saphenous vein was identified, dissected out, its branches, ligated with 2-0 silk and divided. The greater saphenous vein was harvested from the groin to midcalf. It was removed from its path, reversed and gently dilated up using heparinized saline. The vein was of good caliber, thin wall and is ranging from 4 to 5 mm in diameter. Next, attention was turned to the popliteal artery. The vein harvest incision was utilized from below knee to above knee. The subcutaneous tissue was cut with a cautery down to the fascia. The fascia was incised. The gastrocnemius muscle was identified and retracted posteriorly. The insertion of the gastrocnemius muscle into the femur was transected exposing the popliteal artery just above the condyle. Popliteal artery has a pulse in it. It is soft, but very thick walled. It was dissected out and looped out using vessel loop. An x-ray was taken of the popliteal artery to show that it is indeed above the leg. An incision was made posterior to the medial malleolus. The incision was extended down to the subcutaneous tissue. The posterior tibial artery was identified. Next, a tunnel was created connecting the popliteal fossa to the posterior tibial artery bed. The patient was systemically heparinized. The reverse greater saphenous vein was anastomosed in an end-to-side fashion to the posterior tibial artery first. This was performed using 6-0 Prolene continuous suture. After that, the reverse greater saphenous vein was tunneled via a previously created tunnel to the popliteal fossa On-table angiogram shows that the greater saphenous vein was not twisted and the distal anastomosis was widely patent with good filling of the lateral plantar artery. Next, the tourniquet was inflated and the arteriotomy was made in the popliteal artery. Unfortunately, the tourniquet was not effective in compressing the vessel, so the vessel has to dissected out and double looped with vessel loop, but there was still residual bleeding and it appeared that the patient has severe atherosclerotic popliteal artery disease with the wall being 4 mm thick. An arteriotomy was made. The proximal vein anastomosis was performed to the popliteal artery in an end-to-side fashion using 5-0 Prolene continuous suture. On completion of the anastomosis, the palpable pulse was noted in the vein and in the posterior tibial artery. Good hemostasis was assured using electrocoagulation and ligation with 3-0 silk. Two Hayden-Moody were placed, one in the saphenectomy site and brought out through a separate stab wound in the skin. The saphenectomy site was closed in 2 layers using 2-0 Monocryl interrupted suture and 4-0 Monocryl subcuticular suture for skin. The posterior tibial artery area was closed in one layer using 4-0 Monocryl subcuticular suture for skin. The popliteal fossa was closed as such that the gastrocnemius muscle was reattached to the femur. The sartorius muscle was also reattached to its tendon. A Hayden-Moody was placed subfascially above the reapproximated muscle, brought out through a separate skin. The rest of the incision was closed in 2 layers using 2-0 nylon full thickness subcutaneous interrupted suture and skin staple. The Hayden-Moody was secured with 2-0 silk ties. Prior to leaving the operating room, there was triphasic signal in the posterior tibia and the dorsalis pedis area. Sterile dressing was applied. The patient tolerated the procedure well and was returned to the recovery room in good condition. Winnie Dacosta MD PJ
[2017-06-19 01:36] LABS: GRAN # 11.51 (1.4-6.5); GRAN % 91.1 % (50.0-68.0); HEMOGLOBIN 9.3 g/dL (14.0-18.0); LYMPH # 0.4 (1.2-3.4); MEAN CELL VOLUME 84.9 fl (80.0-105.0); MEAN CORPUSCULAR HEMOGLOBIN 28.1 pg (25.0-35.0); MEAN CORPUSCULAR HGB CONC 33.1 g/dl (31.0-37.0); MEAN PLATELET VOLUME 10.2 fl (7.0-11.0); MONO # 0.8 (0.1-0.6); MONO % 5.9 % (1.0-6.0); PLATELET COUNT 155 10^3/uL (120.0-450.0); RBC 3.31 10^6/uL (3.5-6.1); RED CELL DISTRIBUTION WIDTH 13.8 % (11.5-14.5); WHITE BLOOD COUNT 12.6 10^3/ul (4.5-11.0)
[2017-06-19 01:56] LABS: ALB/GLOB RATIO 0.9 (1.1-1.8); ALBUMIN 2.2 g/dL (3.0-4.8); ALT/SGPT 32 U/L (7-56); AST/SGOT 17 U/L (17-59); BLOOD UREA NITROGEN 20 mg/dL (7-21); CALCIUM 7.8 mg/dL (8.4-10.5); GFR AFRICAN-AMERICAN > 60; GFR NON-AFRICAN AMERICAN > 60
[2017-06-19 03:47] LABS: BAND 10 % (0-2); LYMPHOCYTE 3 % (22.0-35.0); MONOCYTE 3 % (1.0-6.0); NEUTROPHIL 84 % (50.0-70.0)
[2017-06-19 03:48] LABS: PLATELET ESTIMATE NORMAL (NORMAL)
[2017-06-19] MEDS: Vancomycin 1gm in NS 250ml 1 GM/250 ML BAG IVPB SCH ×2 (05:36→17:56)
[2017-06-19] MEDS: Piperacillin/Tazobact 3.375 gm 100 ML IVPB SCH ×3 (05:36→21:42)
[2017-06-19 06:55] LABS: GRAN # 6.93 (1.4-6.5); GRAN % 86.6 % (50.0-68.0); LYMPH # 0.6 (1.2-3.4); LYMPH % 7.9 % (22.0-35.0); MEAN CORPUSCULAR HGB CONC 33.3 g/dl (31.0-37.0); MEAN PLATELET VOLUME 9.8 fl (7.0-11.0); MONO # 0.4 (0.1-0.6); MONO % 5.5 % (1.0-6.0); RBC 2.43 10^6/uL (3.5-6.1); RED CELL DISTRIBUTION WIDTH 13.9 % (11.5-14.5)
[2017-06-19 07:25] LABS: HEMOGLOBIN 6.8 g/dL (14.0-18.0)
[2017-06-19 07:42] LABS: ALB/GLOB RATIO 0.8 (1.1-1.8); ALT/SGPT 20 U/L (7-56); AST/SGOT 24 U/L (17-59); BLOOD UREA NITROGEN 19 mg/dL (7-21); CALCIUM 7.1 mg/dL (8.4-10.5); GFR AFRICAN-AMERICAN > 60; GFR NON-AFRICAN AMERICAN > 60
[2017-06-19] MEDS ORDERED: Magnesium Sulfate 1 gm in D5W 1 GM/100 ML BAG IVPB ONE ×2 (07:57→09:08)
[2017-06-19] MEDS: Insulin Lispro (humaLOG) MEDIUM Coverage SC SCH ×4 (08:31→21:46)
[2017-06-19] MEDS: Insulin Lispro (humaLOG) MIX 75/25(10 ml) SC SCH ×2 (09:30→21:47)
[2017-06-19] MEDS ORDERED: Enoxaparin 30 mg Syringe SC SCH (10:00)
[2017-06-19] MEDS: Benzocaine/Menthol (Cepacol) Lozenge MT PRN ×2 (10:12→15:35)
--- NOTE | 2017-06-19 10:12 | CP.PCM.PN ---
Subjective - Date & Time of Evaluation Date of Evaluation: 06/19/17 Time of Evaluation: 09:58 - Subjective Subjective: Surgery: Dr. Dacosta Pt seen and examined. Resting comfortably in bed. Pain controlled. Had some nausea overnight. Objective - Vital Signs/Intake and Output Vital Signs (last 24 hours): Temp Pulse Resp BP Pulse Ox 98.2 F 63 18 129/54 L 100 06/19/17 09:37 06/19/17 09:37 06/19/17 09:37 06/19/17 09:37 06/19/17 08:00 Intake and Output: 06/19/17 06/19/17 06:59 18:59 Intake Total 10 Balance 10 - Medications Medications: Current Medications Aspirin (Ecotrin) 81 mg PO DAILY [facility] Last Admin: 06/18/17 09:10 Dose: Not Given Atorvastatin Calcium (Lipitor) 10 mg PO HS [facility] Last Admin: 06/18/17 21:43 Dose: 10 mg Benzocaine/Menthol (Cepacol Sore Throat) 1 main MT Q2H PRN PRN Reason: Sore Throat Famotidine (Pepcid) 20 mg PO DAILY [facility] Last Admin: 06/18/17 09:10 Dose: Not Given Hydrochlorothiazide (Microzide) 12.5 mg PO DAILY [facility] Last Admin: 06/18/17 09:10 Dose: Not Given Hydromorphone HCl (Dilaudid) 0.5 mg IVP Q4H PRN PRN Reason: Pain, severe (8-10) Last Admin: 06/18/17 22:15 Dose: 0.5 mg Piperacillin Sod/Tazobactam Sod (Zosyn 3.375 In Ns 100ml) 100 mls @ 200 mls/hr IVPB Q8 [facility] PRN Reason: Protocol Stop: 06/19/17 22:01 Last Admin: 06/19/17 05:36 Dose: 200 mls/hr Vancomycin HCl (Vancomycin 1gm) 1 gm in 250 mls @ 167 mls/hr IVPB Q12H [facility] PRN Reason: Protocol Last Admin: 06/19/17 05:36 Dose: 167 mls/hr Acetaminophen (Ofirmev) 1,000 mg in 100 mls @ 400 mls/hr IVPB Q6H PRN PRN Reason: Pain, Mild (1-3) Stop: 06/20/17 16:45 Magnesium Sulfate/Dextrose (Magnesium Sulfate 1 Gm/100 Ml D5w) 1 gm in 100 mls @ 100 mls/hr IVPB ONCE ONE Stop: 06/19/17 10:07 Insulin Human Lispro (Humalog Med) 0 units SC ACHS [facility] PRN Reason: Protocol Last Admin: 06/19/17 08:31 Dose: 5 units Insulin Lispro Protam/Lispro Human (Humalog Mix 75/25) 30 units SC QAM [facility] Last Admin: 06/19/17 09:30 Dose: Not Given Insulin Lispro Protam/Lispro Human (Humalog Mix 75/25) 20 units SC HS [facility] Last Admin: 06/15/17 22:13 Dose: 20 units Losartan Potassium (Cozaar) 100 mg PO DAILY [facility] Last Admin: 06/18/17 09:10 Dose: Not Given Metformin HCl (Glucophage) 500 mg PO DAILY [facility] Last Admin: 06/17/17 10:18 Dose: 500 mg Metoprolol Tartrate (Lopressor) 25 mg PO BID [facility] Last Admin: 06/18/17 09:06 Dose: 25 mg Ondansetron HCl (Zofran Inj) 4 mg IVP Q6H PRN PRN Reason: Nausea/Vomiting Oxycodone HCl (Oxycodone Immediate Release Tab) 5 mg PO Q4H PRN PRN Reason: Pain, moderate (4-7) Sitagliptin Phosphate (Januvia) 50 mg PO DAILY [facility] Last Admin: 06/18/17 09:10 Dose: Not Given - Labs Labs: 06/19/17 06:10 06/19/17 06:10 PT 14.2 SECONDS (9.4-12.5) H 06/18/17 05:30 INR 1.23 (0.93-1.08) H 06/18/17 05:30 APTT 28.9 Seconds (25.1-36.5) 06/18/17 05:30 - Constitutional Appears: Non-toxic, No Acute Distress - Head Exam Head Exam: ATRAUMATIC, NORMOCEPHALIC - Eye Exam Eye Exam: EOMI - ENT Exam ENT Exam: Mucous Membranes Moist - Neck Exam Neck Exam: Full ROM - Respiratory Exam Respiratory Exam: NORMAL BREATHING PATTERN. absent: Accessory Muscle Use, Respiratory Distress - GI/Abdominal Exam GI & Abdominal Exam: Soft. absent: Distended, Firm, Guarding, Rigid, Tenderness - Extremities Exam Additional comments: RLE, warm to touch, sensation and motor fxn intact, pulses dopplerable, no hematoma present, drains in place x 2 with serosang drainage - Neurological Exam Neurological Exam: Alert, Awake, Oriented x3 - Psychiatric Exam Psychiatric exam: Normal Affect, Normal Mood - Skin Skin Exam: Dry, Intact, Warm Assessment and Plan - Assessment and Plan (Free Text) Assessment: 66M w. PVD, s/p R popliteal posterior tibialis bypass, POD #1 -Hgb 6.8, transfuse, trend H/H -Proximal ARBEN 175cc/12 hr serosang, distal ARBEN 30cc/12hr serosang, continue to monitor -will d/c ashley -CLD ok, ADAT -PT/OT as tolerated -d/w attending Andriy PGY3
--- NOTE | 2017-06-19 10:35 | CP.CCUPN ---
<Herb Dinh - Last Filed: 06/19/17 10:31> CCU Subjective - Physician Review Subjective (Free Text): Patient seen and evaluated bedside. Patient had Hgb of 6.8 tthis morning. Patient denied chest pain, shortness of breath, nausea, vomiting or any other complaints at this time. 06/19/17 10:31 Critical Care Time Spent (in minutes): 35 CCU Objective - Vital Signs / Intake & Output Vital Signs (Last 4 hours): Vital Signs Temp Pulse Resp BP Pulse Ox 06/19/17 10:11 69 113/54 L 06/19/17 09:37 98.2 F 63 18 129/54 L 06/19/17 08:52 98.1 F 74 100 H 131/50 L 06/19/17 08:34 98.4 F 90 25 H 124/46 L 06/19/17 08:00 98.4 F 67 12 124/46 L 100 06/19/17 07:00 70 17 133/52 L 100 Intake and Output (Last 8hrs): Intake & Output 06/18/17 06/19/17 06/19/17 22:59 06:59 14:59 Intake Total 10 Balance 10 Intake: Blood Product 0 Apheresis Rbc Cp2d As3 Lr 0 1st Unit [id number] Other 10 Apheresis Rbc Cp2d As3 Lr 10 1st Unit [id number] - Physical Exam Head: Positive for: Atraumatic, Normocephalic Pupils: Positive for: PERRL, Other (no nystagmus, no photophobia, sclera anicteric, visual field intact b/l) Extroacular Muscles: Positive for: EOMI Conjunctiva: Positive for: Normal Ears: Positive for: Normal Mouth: Positive for: Moist Mucous Membranes Pharnyx: Positive for: Normal Nose (External): Positive for: Atraumatic Nose (Internal): Positive for: Normal Inspection Neck: Positive for: Normal Range of Motion. Negative for: MIDLINE TENDERNESS Respiratory/Chest: Positive for: Clear to Auscultation, Good Air Exchange Cardiovascular: Positive for: Regular Rate and Rhythm, Normal S1, S2. Negative for: Murmurs Abdomen: Positive for: Normal Bowel Sounds. Negative for: Tenderness Back: Positive for: Normal Inspection, CVA Tenderness, Decubitus Ulcer. Negative for: Midline Tenderness Upper Extremity: Positive for: Normal Inspection, Normal ROM, NORMAL PULSES, Neurovascularly Intact, Capillary Refill < 2s Lower Extremity: Positive for: Normal ROM, Capillary Refill < 2 s, Other (+ left BKA; right forefoot swelling with skin erythema noted, + right 3rd toe/5th toe covered with bandages with distal end of the bandages with noted slight yellow discharge, no gross bleeding; no blisters/ulcerations/pustules noted, decr ROM; strength 5-/5 intact b/l) Neurological: Positive for: GCS=15, CN II-XII Intact, Speech Normal Skin: Positive for: Warm, Normal Color, Other (cap refill < 1sec, no ulcerations , no petechiae) Psychiatric: Positive for: Alert, Oriented x 3 - Medications Active Medications: Active Medications Generic Name Dose Route Start Last Admin Trade Name Freq PRN Reason Stop Dose Admin Aspirin 81 mg 06/13/17 10:00 06/18/17 09:10 Ecotrin PO Not Given DAILY [facility] Atorvastatin Calcium 10 mg 06/12/17 22:00 06/18/17 21:43 Lipitor PO 10 mg HS MUKESH Administration Benzocaine/Menthol 1 main 06/19/17 09:49 06/19/17 10:12 Cepacol Sore Throat MT 1 main Q2H PRN Administration Sore Throat Famotidine 20 mg 06/19/17 22:00 Pepcid PO 1000,2200 [facility] Hydrochlorothiazide 12.5 mg 06/13/17 10:00 06/18/17 09:10 Microzide PO Not Given DAILY [facility] Hydromorphone HCl 0.5 mg 06/18/17 16:43 06/18/17 22:15 Dilaudid IVP 0.5 mg Q4H PRN Administration Pain, severe (8-10) Piperacillin Sod/Tazobactam Sod 100 mls @ 200 mls/hr 06/12/17 22:00 06/19/17 05:36 Zosyn 3.375 In Ns 100ml IVPB 06/19/17 22:01 200 mls/hr Q8 MUKESH Administration Protocol Vancomycin HCl 1 gm in 250 mls @ 167 mls/hr 06/13/17 06:30 06/19/17 05:36 Vancomycin 1gm IVPB 167 mls/hr Q12H MUKESH Administration Protocol Acetaminophen 1,000 mg in 100 mls @ 400 mls/hr 06/18/17 16:44 Ofirmev IVPB 06/20/17 16:45 Q6H PRN Pain, Mild (1-3) Insulin Human Lispro 0 units 06/12/17 22:00 06/19/17 08:31 Humalog Med SC 5 units ACHS MUKESH Administration Protocol Insulin Lispro Protam/Lispro Human 30 units 06/13/17 10:00 06/19/17 09:30 Humalog Mix 75/25 SC Not Given QAM MUKESH Insulin Lispro Protam/Lispro Human 20 units 06/12/17 22:00 06/15/17 22:13 Humalog Mix 75/25 SC 20 units HS MUKESH Administration Losartan Potassium 100 mg 06/13/17 10:00 06/18/17 09:10 Cozaar PO Not Given DAILY MUKESH Metformin HCl 500 mg 06/13/17 10:00 06/19/17 10:14 Glucophage PO 500 mg DAILY MUKESH Administration Metoprolol Tartrate 25 mg 06/19/17 10:20 Lopressor PO BID MUKESH Ondansetron HCl 4 mg 06/19/17 02:31 Zofran Inj IVP Q6H PRN Nausea/Vomiting Oxycodone HCl 5 mg 06/18/17 16:40 Oxycodone Immediate Release Tab PO Q4H PRN Pain, moderate (4-7) Sitagliptin Phosphate 50 mg 06/13/17 10:00 06/18/17 09:10 Januvia PO Not Given DAILY MUKESH - Patient Studies Lab Studies: Lab Studies 06/19/17 06/19/17 06/19/17 Range/Units 07:23 06:10 06:10 WBC 8.0 D (4.5-11.0) 10^3/ul RBC 2.43 L (3.5-6.1) 10^6/uL Hgb 6.8 L* D (14.0-18.0) g/dL Hct 20.4 L* (42.0-52.0) % MCV 84.0 (80.0-105.0) fl MCH 28.0 (25.0-35.0) pg MCHC 33.3 (31.0-37.0) g/dl RDW 13.9 (11.5-14.5) % Plt Count 138 (120.0-450.0) 10^3/uL MPV 9.8 (7.0-11.0) fl Gran % 86.6 H (50.0-68.0) % Lymph % (Auto) 7.9 L (22.0-35.0) % Titus % (Auto) 5.5 (1.0-6.0) % Eos % (Auto) 0.0 L (1.5-5.0) % Baso % (Auto) 0.0 (0.0-3.0) % Gran # 6.93 H (1.4-6.5) Lymph # (Auto) 0.6 L (1.2-3.4) Titus # (Auto) 0.4 (0.1-0.6) Eos # (Auto) 0.0 (0.0-0.7) Baso # (Auto) 0.00 (0.0-2.0) K/mm3 Neutrophils % (Manual) (50.0-70.0) % Band Neutrophils % (0-2) % Lymphocytes % (Manual) (22.0-35.0) % Monocytes % (Manual) (1.0-6.0) % Platelet Evaluation (NORMAL) Sodium 146 (132-148) mmol/L Potassium 3.7 (3.6-5.0) mmol/L Chloride 110 H (98-107) mmol/L Carbon Dioxide 23 (21-33) mmol/L Anion Gap 17 (10-20) BUN 19 (7-21) mg/dL Creatinine 1.0 (0.8-1.5) mg/dl Est GFR ( Amer) > 60 Est GFR (Non-Af Amer) > 60 POC Glucose (mg/dL) 281 H (65-110) mg/dL Random Glucose 258 H (70-110) mg/dL Calcium 7.1 L (8.4-10.5) mg/dL Phosphorus 3.0 (2.5-4.5) mg/dL Magnesium 1.5 L (1.7-2.2) mg/dL Total Bilirubin 0.6 (0.2-1.3) mg/dL AST 24 (17-59) U/L ALT 20 (7-56) U/L Alkaline Phosphatase 36 L (38-126) U/L Total Protein 4.5 L (5.8-8.3) g/dL Albumin 2.0 L (3.0-4.8) g/dL Globulin 2.5 gm/dL Albumin/Globulin Ratio 0.8 L (1.1-1.8) Blood Type Antibody Screen Crossmatch BBK History Checked 06/19/17 06/19/17 06/18/17 Range/Units 01:10 01:10 22:06 WBC 12.6 H (4.5-11.0) 10^3/ul RBC 3.31 L (3.5-6.1) 10^6/uL Hgb 9.3 L (14.0-18.0) g/dL Hct 28.1 L (42.0-52.0) % MCV 84.9 (80.0-105.0) fl MCH 28.1 (25.0-35.0) pg MCHC 33.1 (31.0-37.0) g/dl RDW 13.8 (11.5-14.5) % Plt Count 155 (120.0-450.0) 10^3/uL MPV 10.2 (7.0-11.0) fl Gran % 91.1 H (50.0-68.0) % Lymph % (Auto) 3.0 L (22.0-35.0) % Titus % (Auto) 5.9 (1.0-6.0) % Eos % (Auto) 0.0 L (1.5-5.0) % Baso % (Auto) 0.0 (0.0-3.0) % Gran # 11.51 H (1.4-6.5) Lymph # (Auto) 0.4 L (1.2-3.4) Titus # (Auto) 0.8 H (0.1-0.6) Eos # (Auto) 0.0 (0.0-0.7) Baso # (Auto) 0.00 (0.0-2.0) K/mm3 Neutrophils % (Manual) 84 H (50.0-70.0) % Band Neutrophils % 10 H (0-2) % Lymphocytes % (Manual) 3 L (22.0-35.0) % Monocytes % (Manual) 3 (1.0-6.0) % Platelet Evaluation Normal (NORMAL) Sodium 138 (132-148) mmol/L Potassium 4.7 (3.6-5.0) mmol/L Chloride 108 H (98-107) mmol/L Carbon Dioxide 23 (21-33) mmol/L Anion Gap 12 (10-20) BUN 20 (7-21) mg/dL Creatinine 1.1 (0.8-1.5) mg/dl Est GFR ( Amer) > 60 Est GFR (Non-Af Amer) > 60 POC Glucose (mg/dL) 234 H (65-110) mg/dL Random Glucose 273 H (70-110) mg/dL Calcium 7.8 L (8.4-10.5) mg/dL Phosphorus (2.5-4.5) mg/dL Magnesium (1.7-2.2) mg/dL Total Bilirubin 0.8 (0.2-1.3) mg/dL AST 17 D (17-59) U/L ALT 32 (7-56) U/L Alkaline Phosphatase 40 (38-126) U/L Total Protein 4.5 L (5.8-8.3) g/dL Albumin 2.2 L (3.0-4.8) g/dL Globulin 2.4 gm/dL Albumin/Globulin Ratio 0.9 L (1.1-1.8) Blood Type Antibody Screen Crossmatch BBK History Checked 06/18/17 06/18/17 06/18/17 Range/Units 18:36 17:05 17:05 WBC 15.5 H D (4.5-11.0) 10^3/ul RBC 3.41 L (3.5-6.1) 10^6/uL Hgb 9.6 L (14.0-18.0) g/dL Hct 29.0 L (42.0-52.0) % MCV 85.0 (80.0-105.0) fl MCH 28.2 (25.0-35.0) pg MCHC 33.1 (31.0-37.0) g/dl RDW 13.7 (11.5-14.5) % Plt Count 158 (120.0-450.0) 10^3/uL MPV 10.3 (7.0-11.0) fl Gran % (50.0-68.0) % Lymph % (Auto) (22.0-35.0) % Titus % (Auto) (1.0-6.0) % Eos % (Auto) (1.5-5.0) % Baso % (Auto) (0.0-3.0) % Gran # (1.4-6.5) Lymph # (Auto) (1.2-3.4) Titus # (Auto) (0.1-0.6) Eos # (Auto) (0.0-0.7) Baso # (Auto) (0.0-2.0) K/mm3 Neutrophils % (Manual) (50.0-70.0) % Band Neutrophils % (0-2) % Lymphocytes % (Manual) (22.0-35.0) % Monocytes % (Manual) (1.0-6.0) % Platelet Evaluation (NORMAL) Sodium 138 (132-148) mmol/L Potassium 4.2 (3.6-5.0) mmol/L Chloride 112 H (98-107) mmol/L Carbon Dioxide 19 L (21-33) mmol/L Anion Gap 12 (10-20) BUN 19 (7-21) mg/dL Creatinine 1.0 (0.8-1.5) mg/dl Est GFR ( Amer) > 60 Est GFR (Non-Af Amer) > 60 POC Glucose (mg/dL) 231 H (65-110) mg/dL Random Glucose 231 H (70-110) mg/dL Calcium 7.3 L (8.4-10.5) mg/dL Phosphorus 3.3 (2.5-4.5) mg/dL Magnesium 1.5 L (1.7-2.2) mg/dL Total Bilirubin (0.2-1.3) mg/dL AST (17-59) U/L ALT (7-56) U/L Alkaline Phosphatase (38-126) U/L Total Protein (5.8-8.3) g/dL Albumin (3.0-4.8) g/dL Globulin gm/dL Albumin/Globulin Ratio (1.1-1.8) Blood Type Antibody Screen Crossmatch BBK History Checked 06/17/17 Range/Units 12:15 WBC (4.5-11.0) 10^3/ul RBC (3.5-6.1) 10^6/uL Hgb (14.0-18.0) g/dL Hct (42.0-52.0) % MCV (80.0-105.0) fl MCH (25.0-35.0) pg MCHC (31.0-37.0) g/dl RDW (11.5-14.5) % Plt Count (120.0-450.0) 10^3/uL MPV (7.0-11.0) fl Gran % (50.0-68.0) % Lymph % (Auto) (22.0-35.0) % Titus % (Auto) (1.0-6.0) % Eos % (Auto) (1.5-5.0) % Baso % (Auto) (0.0-3.0) % Gran # (1.4-6.5) Lymph # (Auto) (1.2-3.4) Titus # (Auto) (0.1-0.6) Eos # (Auto) (0.0-0.7) Baso # (Auto) (0.0-2.0) K/mm3 Neutrophils % (Manual) (50.0-70.0) % Band Neutrophils % (0-2) % Lymphocytes % (Manual) (22.0-35.0) % Monocytes % (Manual) (1.0-6.0) % Platelet Evaluation (NORMAL) Sodium (132-148) mmol/L Potassium (3.6-5.0) mmol/L Chloride (98-107) mmol/L Carbon Dioxide (21-33) mmol/L Anion Gap (10-20) BUN (7-21) mg/dL Creatinine (0.8-1.5) mg/dl Est GFR ( Amer) Est GFR (Non-Af Amer) POC Glucose (mg/dL) (65-110) mg/dL Random Glucose (70-110) mg/dL Calcium (8.4-10.5) mg/dL Phosphorus (2.5-4.5) mg/dL Magnesium (1.7-2.2) mg/dL Total Bilirubin (0.2-1.3) mg/dL AST (17-59) U/L ALT (7-56) U/L Alkaline Phosphatase (38-126) U/L Total Protein (5.8-8.3) g/dL Albumin (3.0-4.8) g/dL Globulin gm/dL Albumin/Globulin Ratio (1.1-1.8) Blood Type O POSITIVE Antibody Screen Negative Crossmatch See Detail BBK History Checked No verified bt Laboratory Results - last 24 hr 06/17/17 06/18/17 06/18/17 12:15 17:05 17:05 WBC 15.5 H D RBC 3.41 L Hgb 9.6 L Hct 29.0 L MCV 85.0 MCH 28.2 MCHC 33.1 RDW 13.7 Plt Count 158 MPV 10.3 Gran % Lymph % (Auto) Titus % (Auto) Eos % (Auto) Baso % (Auto) Gran # Lymph # (Auto) Titus # (Auto) Eos # (Auto) Baso # (Auto) Neutrophils % (Manual) Band Neutrophils % Lymphocytes % (Manual) Monocytes % (Manual) Platelet Evaluation Sodium 138 Potassium 4.2 Chloride 112 H Carbon Dioxide 19 L Anion Gap 12 BUN 19 Creatinine 1.0 Est GFR ( Amer) > 60 Est GFR (Non-Af Amer) > 60 POC Glucose (mg/dL) Random Glucose 231 H Calcium 7.3 L Phosphorus 3.3 Magnesium 1.5 L Total Bilirubin AST ALT Alkaline Phosphatase Total Protein Albumin Globulin Albumin/Globulin Ratio Blood Type O POSITIVE Antibody Screen Negative Crossmatch See Detail BBK History Checked No verified bt 06/18/17 06/18/17 06/19/17 18:36 22:06 01:10 WBC 12.6 H RBC 3.31 L Hgb 9.3 L Hct 28.1 L MCV 84.9 MCH 28.1 MCHC 33.1 RDW 13.8 Plt Count 155 MPV 10.2 Gran % 91.1 H Lymph % (Auto) 3.0 L Titus % (Auto) 5.9 Eos % (Auto) 0.0 L Baso % (Auto) 0.0 Gran # 11.51 H Lymph # (Auto) 0.4 L Titus # (Auto) 0.8 H Eos # (Auto) 0.0 Baso # (Auto) 0.00 Neutrophils % (Manual) 84 H Band Neutrophils % 10 H Lymphocytes % (Manual) 3 L Monocytes % (Manual) 3 Platelet Evaluation Normal Sodium Potassium Chloride Carbon Dioxide Anion Gap BUN Creatinine Est GFR ( Amer) Est GFR (Non-Af Amer) POC Glucose (mg/dL) 231 H 234 H Random Glucose Calcium Phosphorus Magnesium Total Bilirubin AST ALT Alkaline Phosphatase Total Protein Albumin Globulin Albumin/Globulin Ratio Blood Type Antibody Screen Crossmatch BBK History Checked 06/19/17 06/19/17 06/19/17 01:10 06:10 06:10 WBC 8.0 D RBC 2.43 L Hgb 6.8 L* D Hct 20.4 L* MCV 84.0 MCH 28.0 MCHC 33.3 RDW 13.9 Plt Count 138 MPV 9.8 Gran % 86.6 H Lymph % (Auto) 7.9 L Titus % (Auto) 5.5 Eos % (Auto) 0.0 L Baso % (Auto) 0.0 Gran # 6.93 H Lymph # (Auto) 0.6 L Titus # (Auto) 0.4 Eos # (Auto) 0.0 Baso # (Auto) 0.00 Neutrophils % (Manual) Band Neutrophils % Lymphocytes % (Manual) Monocytes % (Manual) Platelet Evaluation Sodium 138 146 Potassium 4.7 3.7 Chloride 108 H 110 H Carbon Dioxide 23 23 Anion Gap 12 17 BUN 20 19 Creatinine 1.1 1.0 Est GFR ( Amer) > 60 > 60 Est GFR (Non-Af Amer) > 60 > 60 POC Glucose (mg/dL) Random Glucose 273 H 258 H Calcium 7.8 L 7.1 L Phosphorus 3.0 Magnesium 1.5 L Total Bilirubin 0.8 0.6 AST 17 D 24 ALT 32 20 Alkaline Phosphatase 40 36 L Total Protein 4.5 L 4.5 L Albumin 2.2 L 2.0 L Globulin 2.4 2.5 Albumin/Globulin Ratio 0.9 L 0.8 L Blood Type Antibody Screen Crossmatch BBK History Checked 06/19/17 07:23 WBC RBC Hgb Hct MCV MCH MCHC RDW Plt Count MPV Gran % Lymph % (Auto) Titus % (Auto) Eos % (Auto) Baso % (Auto) Gran # Lymph # (Auto) Titus # (Auto) Eos # (Auto) Baso # (Auto) Neutrophils % (Manual) Band Neutrophils % Lymphocytes % (Manual) Monocytes % (Manual) Platelet Evaluation Sodium Potassium Chloride Carbon Dioxide Anion Gap BUN Creatinine Est GFR ( Amer) Est GFR (Non-Af Amer) POC Glucose (mg/dL) 281 H Random Glucose Calcium Phosphorus Magnesium Total Bilirubin AST ALT Alkaline Phosphatase Total Protein Albumin Globulin Albumin/Globulin Ratio Blood Type Antibody Screen Crossmatch BBK History Checked Fingerstick Blood Sugar Results: 281 Review of Systems - Cardiovascular Cardiovascular: absent: Chest Pain, Chest Pain at Rest, Chest Pain with Activity , Dyspnea, Edema - Respiratory Respiratory: absent: Cough, Dyspnea, Dyspnea on Exertion, Wheezing, Pain on Inspiration, Chest Congestion - Gastrointestinal Gastrointestinal: absent: Abdominal Pain, Diarrhea, Nausea, Vomiting - Musculoskeletal Musculoskeletal: absent: Abnormal Gait, Arthralgias - Neurological Neurological: absent: Syncope, Weakness Critical Care Progress Note - Nutrition Nutrition: Nutrition Category Date Time Status Liquid Diet [DIET] Diets 06/18/17 Dinner Ordered Assessment/Plan - Assessment and Plan (Free Text) Assessment: 66 M with PMH left BKA, PVD, DM2, HTN, presenting status post R popliteal - Posterior pedalis bypass with Saphenous vein graft. Patient will be monitored in the ICU post procedure. Patient was slightly hypotensive post procedure and has Hgb of 6.8 today. Will be transfused prbc. Plan: 66 M with PMH left BKA, PVD, DM2, HTN, presenting status post R popliteal - Posterior pedalis bypass with Saphenous vein graft. Patient will be monitored in the ICU post procedure. Patient had hemoglobin of 6.8 in AM. Plan -transfuse 1 unir PRBC, type and cross, 2 units on hold -repeat CBC post transfusion -hold antihypertensives -hold oral hypoglycemics -insulin sliding scale -pedal puls checks Q2 -continue abx,ID following -wound care post procedure per surgery -monitor kidney function -check labs daily with coags -hold aspirin, lovenox -replenish lytes, check daily labs -continue lipitor -GI ppx -Clear liquid diet <Fito Hansen - Last Filed: 06/19/17 12:00> CCU Objective - Vital Signs / Intake & Output Vital Signs (Last 4 hours): Vital Signs Temp Pulse Resp BP Pulse Ox 06/19/17 10:11 69 113/54 L 06/19/17 09:37 98.2 F 63 18 129/54 L 06/19/17 08:52 98.1 F 74 100 H 131/50 L 06/19/17 08:34 98.4 F 90 25 H 124/46 L 06/19/17 08:00 98.4 F 67 12 124/46 L 100 Intake and Output (Last 8hrs): Intake & Output 06/18/17 06/19/17 06/19/17 22:59 06:59 14:59 Intake Total 305 Balance 305 Intake: Blood Product 285 Apheresis Rbc Cp2d As3 Lr 285 1st Unit [id number] Other 20 Apheresis Rbc Cp2d As3 Lr 20 1st Unit [id number] - Medications Active Medications: Active Medications Generic Name Dose Route Start Last Admin Trade Name Freq PRN Reason Stop Dose Admin Aspirin 81 mg 06/13/17 10:00 06/18/17 09:10 Ecotrin PO Not Given DAILY [facility] Atorvastatin Calcium 10 mg 06/12/17 22:00 06/18/17 21:43 Lipitor PO 10 mg HS MUKESH Administration Benzocaine/Menthol 1 main 06/19/17 09:49 06/19/17 10:12 Cepacol Sore Throat MT 1 main Q2H PRN Administration Sore Throat Famotidine 20 mg 06/19/17 22:00 Pepcid PO 1000,2200 [facility] Hydrochlorothiazide 12.5 mg 06/13/17 10:00 06/18/17 09:10 Microzide PO Not Given DAILY [facility] Hydromorphone HCl 0.5 mg 06/18/17 16:43 06/18/17 22:15 Dilaudid IVP 0.5 mg Q4H PRN Administration Pain, severe (8-10) Piperacillin Sod/Tazobactam Sod 100 mls @ 200 mls/hr 06/12/17 22:00 06/19/17 05:36 Zosyn 3.375 In Ns 100ml IVPB 06/19/17 22:01 200 mls/hr Q8 MUKESH Administration Protocol Vancomycin HCl 1 gm in 250 mls @ 167 mls/hr 06/13/17 06:30 06/19/17 05:36 Vancomycin 1gm IVPB 167 mls/hr Q12H MUKESH Administration Protocol Acetaminophen 1,000 mg in 100 mls @ 400 mls/hr 06/18/17 16:44 Ofirmev IVPB 06/20/17 16:45 Q6H PRN Pain, Mild (1-3) Insulin Human Lispro 0 units 06/12/17 22:00 06/19/17 08:31 Humalog Med SC 5 units ACHS MUKESH Administration Protocol Insulin Lispro Protam/Lispro Human 30 units 06/13/17 10:00 06/19/17 09:30 Humalog Mix 75/25 SC Not Given QAM MUKESH Insulin Lispro Protam/Lispro Human 20 units 06/12/17 22:00 06/15/17 22:13 Humalog Mix 75/25 SC 20 units HS MUKESH Administration Losartan Potassium 100 mg 06/13/17 10:00 06/18/17 09:10 Cozaar PO Not Given DAILY MUKESH Metformin HCl 500 mg 06/13/17 10:00 06/19/17 10:14 Glucophage PO 500 mg DAILY MUKESH Administration Metoprolol Tartrate 25 mg 06/19/17 10:20 Lopressor PO BID MUKESH Ondansetron HCl 4 mg 06/19/17 02:31 Zofran Inj IVP Q6H PRN Nausea/Vomiting Oxycodone HCl 5 mg 06/18/17 16:40 Oxycodone Immediate Release Tab PO Q4H PRN Pain, moderate (4-7) Pantoprazole Sodium 40 mg 06/20/17 06:00 Protonix Ec Tab PO 0600 [facility] Sitagliptin Phosphate 50 mg 06/13/17 10:00 06/18/17 09:10 Januvia PO Not Given DAILY MUKESH - Patient Studies Lab Studies: Lab Studies 06/19/17 06/19/17 06/19/17 Range/Units 11:22 07:23 06:10 WBC (4.5-11.0) 10^3/ul RBC (3.5-6.1) 10^6/uL Hgb (14.0-18.0) g/dL Hct (42.0-52.0) % MCV (80.0-105.0) fl MCH (25.0-35.0) pg MCHC (31.0-37.0) g/dl RDW (11.5-14.5) % Plt Count (120.0-450.0) 10^3/uL MPV (7.0-11.0) fl Gran % (50.0-68.0) % Lymph % (Auto) (22.0-35.0) % Titus % (Auto) (1.0-6.0) % Eos % (Auto) (1.5-5.0) % Baso % (Auto) (0.0-3.0) % Gran # (1.4-6.5) Lymph # (Auto) (1.2-3.4) Titus # (Auto) (0.1-0.6) Eos # (Auto) (0.0-0.7) Baso # (Auto) (0.0-2.0) K/mm3 Neutrophils % (Manual) (50.0-70.0) % Band Neutrophils % (0-2) % Lymphocytes % (Manual) (22.0-35.0) % Monocytes % (Manual) (1.0-6.0) % Platelet Evaluation (NORMAL) Sodium 146 (132-148) mmol/L Potassium 3.7 (3.6-5.0) mmol/L Chloride 110 H (98-107) mmol/L Carbon Dioxide 23 (21-33) mmol/L Anion Gap 17 (10-20) BUN 19 (7-21) mg/dL Creatinine 1.0 (0.8-1.5) mg/dl Est GFR ( Amer) > 60 Est GFR (Non-Af Amer) > 60 POC Glucose (mg/dL) 274 H 281 H (65-110) mg/dL Random Glucose 258 H (70-110) mg/dL Calcium 7.1 L (8.4-10.5) mg/dL Phosphorus 3.0 (2.5-4.5) mg/dL Magnesium 1.5 L (1.7-2.2) mg/dL Total Bilirubin 0.6 (0.2-1.3) mg/dL AST 24 (17-59) U/L ALT 20 (7-56) U/L Alkaline Phosphatase 36 L (38-126) U/L Total Protein 4.5 L (5.8-8.3) g/dL Albumin 2.0 L (3.0-4.8) g/dL Globulin 2.5 gm/dL Albumin/Globulin Ratio 0.8 L (1.1-1.8) Blood Type Antibody Screen Crossmatch BBK History Checked 06/19/17 06/19/17 06/19/17 Range/Units 06:10 01:10 01:10 WBC 8.0 D 12.6 H (4.5-11.0) 10^3/ul RBC 2.43 L 3.31 L (3.5-6.1) 10^6/uL Hgb 6.8 L* D 9.3 L (14.0-18.0) g/dL Hct 20.4 L* 28.1 L (42.0-52.0) % MCV 84.0 84.9 (80.0-105.0) fl MCH 28.0 28.1 (25.0-35.0) pg MCHC 33.3 33.1 (31.0-37.0) g/dl RDW 13.9 13.8 (11.5-14.5) % Plt Count 138 155 (120.0-450.0) 10^3/uL MPV 9.8 10.2 (7.0-11.0) fl Gran % 86.6 H 91.1 H (50.0-68.0) % Lymph % (Auto) 7.9 L 3.0 L (22.0-35.0) % [place] % (Auto) 5.5 5.9 (1.0-6.0) % Eos % (Auto) 0.0 L 0.0 L (1.5-5.0) % Baso % (Auto) 0.0 0.0 (0.0-3.0) % Gran # 6.93 H 11.51 H (1.4-6.5) Lymph # (Auto) 0.6 L 0.4 L (1.2-3.4) Titus # (Auto) 0.4 0.8 H (0.1-0.6) Eos # (Auto) 0.0 0.0 (0.0-0.7) Baso # (Auto) 0.00 0.00 (0.0-2.0) K/mm3 Neutrophils % (Manual) 84 H (50.0-70.0) % Band Neutrophils % 10 H (0-2) % Lymphocytes % (Manual) 3 L (22.0-35.0) % Monocytes % (Manual) 3 (1.0-6.0) % Platelet Evaluation Normal (NORMAL) Sodium 138 (132-148) mmol/L Potassium 4.7 (3.6-5.0) mmol/L Chloride 108 H (98-107) mmol/L Carbon Dioxide 23 (21-33) mmol/L Anion Gap 12 (10-20) BUN 20 (7-21) mg/dL Creatinine 1.1 (0.8-1.5) mg/dl Est GFR ( Amer) > 60 Est GFR (Non-Af Amer) > 60 POC Glucose (mg/dL) (65-110) mg/dL Random Glucose 273 H (70-110) mg/dL Calcium 7.8 L (8.4-10.5) mg/dL Phosphorus (2.5-4.5) mg/dL Magnesium (1.7-2.2) mg/dL Total Bilirubin 0.8 (0.2-1.3) mg/dL AST 17 D (17-59) U/L ALT 32 (7-56) U/L Alkaline Phosphatase 40 (38-126) U/L Total Protein 4.5 L (5.8-8.3) g/dL Albumin 2.2 L (3.0-4.8) g/dL Globulin 2.4 gm/dL Albumin/Globulin Ratio 0.9 L (1.1-1.8) Blood Type Antibody Screen Crossmatch BBK History Checked 06/18/17 06/18/17 06/18/17 Range/Units 22:06 18:36 17:05 WBC (4.5-11.0) 10^3/ul RBC (3.5-6.1) 10^6/uL Hgb (14.0-18.0) g/dL Hct (42.0-52.0) % MCV (80.0-105.0) fl MCH (25.0-35.0) pg MCHC (31.0-37.0) g/dl RDW (11.5-14.5) % Plt Count (120.0-450.0) 10^3/uL MPV (7.0-11.0) fl Gran % (50.0-68.0) % Lymph % (Auto) (22.0-35.0) % [place] % (Auto) (1.0-6.0) % Eos % (Auto) (1.5-5.0) % Baso % (Auto) (0.0-3.0) % Gran # (1.4-6.5) Lymph # (Auto) (1.2-3.4) Titus # (Auto) (0.1-0.6) Eos # (Auto) (0.0-0.7) Baso # (Auto) (0.0-2.0) K/mm3 Neutrophils % (Manual) (50.0-70.0) % Band Neutrophils % (0-2) % Lymphocytes % (Manual) (22.0-35.0) % Monocytes % (Manual) (1.0-6.0) % Platelet Evaluation (NORMAL) Sodium 138 (132-148) mmol/L Potassium 4.2 (3.6-5.0) mmol/L Chloride 112 H (98-107) mmol/L Carbon Dioxide 19 L (21-33) mmol/L Anion Gap 12 (10-20) BUN 19 (7-21) mg/dL Creatinine 1.0 (0.8-1.5) mg/dl Est GFR ( Amer) > 60 Est GFR (Non-Af Amer) > 60 POC Glucose (mg/dL) 234 H 231 H (65-110) mg/dL Random Glucose 231 H (70-110) mg/dL Calcium 7.3 L (8.4-10.5) mg/dL Phosphorus 3.3 (2.5-4.5) mg/dL Magnesium 1.5 L (1.7-2.2) mg/dL Total Bilirubin (0.2-1.3) mg/dL AST (17-59) U/L ALT (7-56) U/L Alkaline Phosphatase (38-126) U/L Total Protein (5.8-8.3) g/dL Albumin (3.0-4.8) g/dL Globulin gm/dL Albumin/Globulin Ratio (1.1-1.8) Blood Type Antibody Screen Crossmatch BBK History Checked 06/18/17 06/17/17 Range/Units 17:05 12:15 WBC 15.5 H D (4.5-11.0) 10^3/ul RBC 3.41 L (3.5-6.1) 10^6/uL Hgb 9.6 L (14.0-18.0) g/dL Hct 29.0 L (42.0-52.0) % MCV 85.0 (80.0-105.0) fl MCH 28.2 (25.0-35.0) pg MCHC 33.1 (31.0-37.0) g/dl RDW 13.7 (11.5-14.5) % Plt Count 158 (120.0-450.0) 10^3/uL MPV 10.3 (7.0-11.0) fl Gran % (50.0-68.0) % Lymph % (Auto) (22.0-35.0) % [place] % (Auto) (1.0-6.0) % Eos % (Auto) (1.5-5.0) % Baso % (Auto) (0.0-3.0) % Gran # (1.4-6.5) Lymph # (Auto) (1.2-3.4) [place] # (Auto) (0.1-0.6) Eos # (Auto) (0.0-0.7) Baso # (Auto) (0.0-2.0) K/mm3 Neutrophils % (Manual) (50.0-70.0) % Band Neutrophils % (0-2) % Lymphocytes % (Manual) (22.0-35.0) % Monocytes % (Manual) (1.0-6.0) % Platelet Evaluation (NORMAL) Sodium (132-148) mmol/L Potassium (3.6-5.0) mmol/L Chloride (98-107) mmol/L Carbon Dioxide (21-33) mmol/L Anion Gap (10-20) BUN (7-21) mg/dL Creatinine (0.8-1.5) mg/dl Est GFR ( Amer) Est GFR (Non-Af Amer) POC Glucose (mg/dL) (65-110) mg/dL Random Glucose (70-110) mg/dL Calcium (8.4-10.5) mg/dL Phosphorus (2.5-4.5) mg/dL Magnesium (1.7-2.2) mg/dL Total Bilirubin (0.2-1.3) mg/dL AST (17-59) U/L ALT (7-56) U/L Alkaline Phosphatase (38-126) U/L Total Protein (5.8-8.3) g/dL Albumin (3.0-4.8) g/dL Globulin gm/dL Albumin/Globulin Ratio (1.1-1.8) Blood Type O POSITIVE Antibody Screen Negative Crossmatch See Detail BBK History Checked No verified bt Laboratory Results - last 24 hr 06/17/17 06/18/17 06/18/17 12:15 17:05 17:05 WBC 15.5 H D RBC 3.41 L Hgb 9.6 L Hct 29.0 L MCV 85.0 MCH 28.2 MCHC 33.1 RDW 13.7 Plt Count 158 MPV 10.3 Gran % Lymph % (Auto) T[place] % (Auto) Eos % (Auto) Baso % (Auto) Gran # Lymph # (Auto) Titus # (Auto) Eos # (Auto) Baso # (Auto) Neutrophils % (Manual) Band Neutrophils % Lymphocytes % (Manual) Monocytes % (Manual) Platelet Evaluation Sodium 138 Potassium 4.2 Chloride 112 H Carbon Dioxide 19 L Anion Gap 12 BUN 19 Creatinine 1.0 Est GFR ( Amer) > 60 Est GFR (Non-Af Amer) > 60 POC Glucose (mg/dL) Random Glucose 231 H Calcium 7.3 L Phosphorus 3.3 Magnesium 1.5 L Total Bilirubin AST ALT Alkaline Phosphatase Total Protein Albumin Globulin Albumin/Globulin Ratio Blood Type O POSITIVE Antibody Screen Negative Crossmatch See Detail BBK History Checked No verified bt 06/18/17 06/18/17 06/19/17 18:36 22:06 01:10 WBC 12.6 H RBC 3.31 L Hgb 9.3 L Hct 28.1 L MCV 84.9 MCH 28.1 MCHC 33.1 RDW 13.8 Plt Count 155 MPV 10.2 Gran % 91.1 H Lymph % (Auto) 3.0 L Titus % (Auto) 5.9 Eos % (Auto) 0.0 L Baso % (Auto) 0.0 Gran # 11.51 H Lymph # (Auto) 0.4 L Titus # (Auto) 0.8 H Eos # (Auto) 0.0 Baso # (Auto) 0.00 Neutrophils % (Manual) 84 H Band Neutrophils % 10 H Lymphocytes % (Manual) 3 L Monocytes % (Manual) 3 Platelet Evaluation Normal Sodium Potassium Chloride Carbon Dioxide Anion Gap BUN Creatinine Est GFR ( Amer) Est GFR (Non-Af Amer) POC Glucose (mg/dL) 231 H 234 H Random Glucose Calcium Phosphorus Magnesium Total Bilirubin AST ALT Alkaline Phosphatase Total Protein Albumin Globulin Albumin/Globulin Ratio Blood Type Antibody Screen Crossmatch BBK History Checked 06/19/17 06/19/17 06/19/17 01:10 06:10 06:10 WBC 8.0 D RBC 2.43 L Hgb 6.8 L* D Hct 20.4 L* MCV 84.0 MCH 28.0 MCHC 33.3 RDW 13.9 Plt Count 138 MPV 9.8 Gran % 86.6 H Lymph % (Auto) 7.9 L Titus % (Auto) 5.5 Eos % (Auto) 0.0 L Baso % (Auto) 0.0 Gran # 6.93 H Lymph # (Auto) 0.6 L Titus # (Auto) 0.4 Eos # (Auto) 0.0 Baso # (Auto) 0.00 Neutrophils % (Manual) Band Neutrophils % Lymphocytes % (Manual) Monocytes % (Manual) Platelet Evaluation Sodium 138 146 Potassium 4.7 3.7 Chloride 108 H 110 H Carbon Dioxide 23 23 Anion Gap 12 17 BUN 20 19 Creatinine 1.1 1.0 Est GFR ( Amer) > 60 > 60 Est GFR (Non-Af Amer) > 60 > 60 POC Glucose (mg/dL) Random Glucose 273 H 258 H Calcium 7.8 L 7.1 L Phosphorus 3.0 Magnesium 1.5 L Total Bilirubin 0.8 0.6 AST 17 D 24 ALT 32 20 Alkaline Phosphatase 40 36 L Total Protein 4.5 L 4.5 L Albumin 2.2 L 2.0 L Globulin 2.4 2.5 Albumin/Globulin Ratio 0.9 L 0.8 L Blood Type Antibody Screen Crossmatch BBK History Checked 06/19/17 06/19/17 07:23 11:22 WBC RBC Hgb Hct MCV MCH MCHC RDW Plt Count MPV Gran % Lymph % (Auto) Titus % (Auto) Eos % (Auto) Baso % (Auto) Gran # Lymph # (Auto) Titus # (Auto) Eos # (Auto) Baso # (Auto) Neutrophils % (Manual) Band Neutrophils % Lymphocytes % (Manual) Monocytes % (Manual) Platelet Evaluation Sodium Potassium Chloride Carbon Dioxide Anion Gap BUN Creatinine Est GFR ( Amer) Est GFR (Non-Af Amer) POC Glucose (mg/dL) 281 H 274 H Random Glucose Calcium Phosphorus Magnesium Total Bilirubin AST ALT Alkaline Phosphatase Total Protein Albumin Globulin Albumin/Globulin Ratio Blood Type Antibody Screen Crossmatch BBK History Checked Critical Care Progress Note - Nutrition Nutrition: Nutrition Category Date Time Status Liquid Diet [DIET] Diets 06/18/17 Dinner Ordered Attending/Attestation - Attestation I have personally seen and examined this patient.: Yes I have fully participated in the care of the patient.: Yes I have reviewed all pertinent clinical information: Yes Notes (Text): 06/19/17 11:57 The patient was seen and examined at the bedside. Patient care was discussed with resident and ICU team in MDR rounds. Medical records, lab studies, and imaging were reviewed and management issues were discussed and formulated. Last 24H events reviewed. Agree with above treatment plans as outlined in 's note with addition of the following: -hemodynamic monitoring to maintain MAP>65 -o2 supplementation to maintain Spo2>90 Pao2>60; currently comfortable on NC -continue broad spectrum abx; f\u cultures -Will transfuse PRBC and monitor serial H\H and for bleeding -surgical team f\u -f\u Bun\Cr and U\O ; monitor and replace e-lites -ISS and BGM monitoring -DVT \ PUD prophylaxis CCM f\u 30min
--- NOTE | 2017-06-19 10:47 | PQF ANEMIA ---
This form is a permanent part of the medical record Clarification of your documentation is requested to better reflect the severity of illness and intensity of treatment of your patient. Indicators present POD #1 - Est blood loss in surgery 1,000ml. 06/18 H&H- 6.8 / .4 requiring transfusion PRBC. To best reflect intensity of tx please document acute blood loss anemia in progress notes. Thank-you [] Anemia [x] Drop in H&H from []_9.3/ 28.1__ to []___6.8/ 20.4 [x] Hypotension [] GI Bleed [] Transfusion(s) [] Acute bleed other sites [] Tachycardia [] Surgical Procedure Blood Loss 1,000ml (expected not a complication) Other:[] Location in the medical record that reflects the above clinical findings: [x] Final Inspector Balance Wheel PN Treatment Provided: []Transfusion PRBC PHYSICIAN'S RESPONSE Based on your medical judgment of the clinical indicators outlined above, are you treating this patient for a known or suspected: [] Acute blood loss anemia [] Chronic blood loss anemia [] Acute on Chronic blood loss anemia [] Anemia due to malignancy [] Anemia due to chemotherapy or radiation therapy [] Anemia of Chronic Disease, please specify: [] [] Other, please indicate type of anemia []____ [] If Unable to Determine, please check the box, sign and date. Present On Admission (POA) Indicator: [] Present at the time of admission [] Not present at the time of admission [] Clinically Undetermined In responding to this query, please exercise your independent professional judgment. The fact that a question is asked does not imply that any particular answer is desired or expected. Thank you for your clarification on this documentation. If you have any questions please call:[ ][phone] * Thank you, [ ] Daphne Bess RN CDS resort host [facility]
[2017-06-19 12:27] LABS: BASO # 0.01 K/mm3 (0.0-2.0); BASO % 0.1 % (0.0-3.0); EOS % 0.3 % (1.5-5.0); GRAN # 8.84 (1.4-6.5); GRAN % 81.6 % (50.0-68.0); HEMOGLOBIN 9.4 g/dL (14.0-18.0); LYMPH % 9.2 % (22.0-35.0); MEAN CELL VOLUME 83.5 fl (80.0-105.0); MEAN CORPUSCULAR HEMOGLOBIN 27.7 pg (25.0-35.0); MEAN CORPUSCULAR HGB CONC 33.2 g/dl (31.0-37.0); MEAN PLATELET VOLUME 10.3 fl (7.0-11.0); MONO % 8.8 % (1.0-6.0); RBC 3.39 10^6/uL (3.5-6.1); RED CELL DISTRIBUTION WIDTH 14.2 % (11.5-14.5); WHITE BLOOD COUNT 10.8 10^3/ul (4.5-11.0)
[2017-06-19 13:14] LABS: BASO # 0.01 K/mm3 (0.0-2.0); BASO % 0.1 % (0.0-3.0); EOS % 0.4 % (1.5-5.0); GRAN # 8.41 (1.4-6.5); GRAN % 82.4 % (50.0-68.0); HEMOGLOBIN 9.2 g/dL (14.0-18.0); LYMPH % 9.8 % (22.0-35.0); MEAN CELL VOLUME 83.7 fl (80.0-105.0); MEAN CORPUSCULAR HEMOGLOBIN 27.8 pg (25.0-35.0); MEAN CORPUSCULAR HGB CONC 33.2 g/dl (31.0-37.0); MEAN PLATELET VOLUME 10.7 fl (7.0-11.0); MONO # 0.8 (0.1-0.6); MONO % 7.3 % (1.0-6.0); RBC 3.31 10^6/uL (3.5-6.1); RED CELL DISTRIBUTION WIDTH 14.2 % (11.5-14.5); WHITE BLOOD COUNT 10.2 10^3/ul (4.5-11.0)
--- NOTE | 2017-06-19 13:18 | RAD ---
PROCEDURE: Intraoperative angiogram HISTORY: FEM. POP. BYPASS WITH GRAFT (RIGHT) COMPARISON: TECHNIQUE: Fluoroscopy was provided in the operating room. 22.8 seconds of fluoro time. Seven fluoroscopic runs were obtained FINDINGS: Angiographic images of the distal circulation to the ankle were obtained. A graft is seen in the posterior tibial IMPRESSION: As above
--- NOTE | 2017-06-19 13:28 | PN ---
DATE: SUBJECTIVE: The patient is 66 years old, seen and examined, lying in bed, seems to be comfortable, only soreness in the right leg where he had surgery. PHYSICAL EXAMINATION: VITAL SIGNS: He is afebrile, pulse 65, respirations 18, blood pressure 136/56. LUNGS: Bilateral good airflow. No rhonchi or crackle. HEART: S1 and S2 audible. ABDOMEN: Soft. Nontender. No rebound. No guarding. NEUROLOGIC: The patient is awake, alert, oriented, able to communicate. Status post left BKA and right fem-pop bypass. LABORATORY DATA: WBC is 8.0, hemoglobin is 6.8, hematocrit 20.4, platelet 138. Chemistry: Sodium 146, potassium 3.7, chloride 110, CO2 of 23, BUN 19, creatinine 1.0, blood sugar of 274. The patient received 2 blood transfusions. Followup hemoglobin is 9.4. ASSESSMENT: 1. Severe peripheral vascular disease, status post right femoral popliteal-bypass. 2. Left foot third and fifth toe diabetic ulcer. 3. Hypertension. 4. Hyperlipidemia. PLAN: The patient is clinically stable. Currently, transferred to telemetry. We will continue on his analgesic as needed. He is on losartan. He is on metformin. Blood sugar is being monitored. He is on insulin dose 30 units before breakfast and 20 units at bedtime. He is also on Januvia. Continue him on statin and Lasix as needed. We will follow up his CBC and CMP in the a.m. Berhane Keller MD
--- NOTE | 2017-06-19 15:36 | CP.PCM.PN ---
Subjective - Date & Time of Evaluation Date of Evaluation: 06/19/17 Time of Evaluation: 10:10 - Subjective Subjective: Had revascularization done yesterday, no fevers, not in distress, pain in the right foot is less. Objective - Vital Signs/Intake and Output Vital Signs (last 24 hours): Temp Pulse Resp BP Pulse Ox 98.1 F 74 100 H 131/50 L 100 06/19/17 08:52 06/19/17 08:52 06/19/17 08:52 06/19/17 08:52 06/19/17 08:00 Intake and Output: 06/19/17 06/19/17 06:59 18:59 Intake Total 10 Balance 10 - Medications Medications: Current Medications Aspirin (Ecotrin) 81 mg PO DAILY [facility] Last Admin: 06/18/17 09:10 Dose: Not Given Atorvastatin Calcium (Lipitor) 10 mg PO HS [facility] Last Admin: 06/18/17 21:43 Dose: 10 mg Famotidine (Pepcid) 20 mg PO DAILY [facility] Last Admin: 06/18/17 09:10 Dose: Not Given Hydrochlorothiazide (Microzide) 12.5 mg PO DAILY [facility] Last Admin: 06/18/17 09:10 Dose: Not Given Hydromorphone HCl (Dilaudid) 0.5 mg IVP Q4H PRN PRN Reason: Pain, severe (8-10) Last Admin: 06/18/17 22:15 Dose: 0.5 mg Piperacillin Sod/Tazobactam Sod (Zosyn 3.375 In Ns 100ml) 100 mls @ 200 mls/hr IVPB Q8 MUKESH PRN Reason: Protocol Stop: 06/19/17 22:01 Last Admin: 06/19/17 05:36 Dose: 200 mls/hr Vancomycin HCl (Vancomycin 1gm) 1 gm in 250 mls @ 167 mls/hr IVPB Q12H MUKESH PRN Reason: Protocol Last Admin: 06/19/17 05:36 Dose: 167 mls/hr Acetaminophen (Ofirmev) 1,000 mg in 100 mls @ 400 mls/hr IVPB Q6H PRN PRN Reason: Pain, Mild (1-3) Stop: 06/20/17 16:45 Magnesium Sulfate/Dextrose (Magnesium Sulfate 1 Gm/100 Ml D5w) 1 gm in 100 mls @ 100 mls/hr IVPB ONCE ONE Stop: 06/19/17 10:07 Insulin Human Lispro (Humalog Med) 0 units SC ACHS [facility] PRN Reason: Protocol Last Admin: 06/19/17 08:31 Dose: 5 units Insulin Lispro Protam/Lispro Human (Humalog Mix 75/25) 30 units SC QAM [facility] Last Admin: 06/16/17 09:31 Dose: Not Given Insulin Lispro Protam/Lispro Human (Humalog Mix 75/25) 20 units SC HS [facility] Last Admin: 06/15/17 22:13 Dose: 20 units Losartan Potassium (Cozaar) 100 mg PO DAILY [facility] Last Admin: 06/18/17 09:10 Dose: Not Given Metformin HCl (Glucophage) 500 mg PO DAILY [facility] Last Admin: 06/17/17 10:18 Dose: 500 mg Metoprolol Tartrate (Lopressor) 25 mg PO BID [facility] Last Admin: 06/18/17 09:06 Dose: 25 mg Ondansetron HCl (Zofran Inj) 4 mg IVP Q6H PRN PRN Reason: Nausea/Vomiting Oxycodone HCl (Oxycodone Immediate Release Tab) 5 mg PO Q4H PRN PRN Reason: Pain, moderate (4-7) Sitagliptin Phosphate (Januvia) 50 mg PO DAILY [facility] Last Admin: 06/18/17 09:10 Dose: Not Given - Labs Labs: 06/19/17 06:10 06/19/17 06:10 PT 14.2 SECONDS (9.4-12.5) H 06/18/17 05:30 INR 1.23 (0.93-1.08) H 06/18/17 05:30 APTT 28.9 Seconds (25.1-36.5) 06/18/17 05:30 - Constitutional Appears: Non-toxic, Chronically Ill - Head Exam Head Exam: NORMAL INSPECTION - Neck Exam Neck Exam: absent: Meningismus - Respiratory Exam Respiratory Exam: Decreased Breath Sounds - Cardiovascular Exam Cardiovascular Exam: +S1, +S2 - GI/Abdominal Exam GI & Abdominal Exam: Soft. absent: Tenderness - Extremities Exam Additional comments: right foot with more color Assessment and Plan - Assessment and Plan (Free Text) Plan: Assessment right foot chronic foot wound, infected with osteomyelitis as seen on MRI (3rd and 5th digits) in a patient with peripheral vascular disease S/P posterior tibial bypass graft POD #1 HTN DM S/P left BKA Plan continue Vancomycin and Zosyn - now that the patient has had revascularization, will folllow up plan of Podiatry will continue to monitor clinically
--- NOTE | 2017-06-19 16:25 | PN ---
DATE: 06/19/2017 REASON FOR CONSULTATION AND FOLLOWUP: Cardiac evaluation, risk stratification, preop and postop followup. SUBJECTIVE: The patient denies any chest pain, shortness of breath, or any palpitations. The patient is not in apparent distress, with mild pain at the operative site. PHYSICAL EXAMINATION: GENERAL: The patient is lying flat in the bed in ICU. VITAL SIGNS: Temperature afebrile, heart rate 60, blood pressure 129/80. HEENT: PERRLA. Extraocular muscles intact. NECK: Supple. No carotid bruits or thyromegaly. CHEST: Clear to auscultation. HEART: S1 and S2, regular. ABDOMEN: Soft. EXTREMITIES: Clubbing and cyanosis, negative. LABORATORY DATA: WBC 8, hemoglobin 6.8, hematocrit 20.4, platelet count 138. Chemistries show sodium 143, potassium 3.7, chloride 110, carbon dioxide 23, anion gap of 17, BUN 19, creatinine 1.0. IMPRESSION: Postoperative anemia, significant drop in hemoglobin, status post right popliteal tibial bypass. Negative stress test preoperative. Echocardiogram showed preserved left ventricular function. RECOMMENDATION: Continue losartan, continue baby aspirin, continue metoprolol. Transfuse 2 units of blood, hemoglobin is low. Closely monitor H and H postop tomorrow. Rosita Marsh MD
[2017-06-20] MEDS: Benzocaine/Menthol (Cepacol) Lozenge MT PRN (00:09)
[2017-06-20] MEDS: Pantoprazole 40 mg EC Tab PO SCH (05:30)
[2017-06-20] MEDS: Vancomycin 1gm in NS 250ml 1 GM/250 ML BAG IVPB SCH ×2 (05:31→17:31)
[2017-06-20 06:55] LABS: BASO # 0.01 K/mm3 (0.0-2.0); BASO % 0.1 % (0.0-3.0); EOS # 0.2 (0.0-0.7); EOS % 2.4 % (1.5-5.0); GRAN # 6.87 (1.4-6.5); GRAN % 78.9 % (50.0-68.0); HEMOGLOBIN 8.4 g/dL (14.0-18.0); LYMPH # 0.9 (1.2-3.4); LYMPH % 10.2 % (22.0-35.0); MEAN CELL VOLUME 84.3 fl (80.0-105.0); MEAN CORPUSCULAR HEMOGLOBIN 27.5 pg (25.0-35.0); MEAN CORPUSCULAR HGB CONC 32.7 g/dl (31.0-37.0); MEAN PLATELET VOLUME 10.6 fl (7.0-11.0); MONO # 0.7 (0.1-0.6); MONO % 8.4 % (1.0-6.0); RBC 3.05 10^6/uL (3.5-6.1); RED CELL DISTRIBUTION WIDTH 14.6 % (11.5-14.5); WHITE BLOOD COUNT 8.7 10^3/ul (4.5-11.0)
[2017-06-20 07:11] LABS: ALB/GLOB RATIO 0.9 (1.1-1.8); ALBUMIN 2.3 g/dL (3.0-4.8); ALT/SGPT 34 U/L (7-56); AST/SGOT 21 U/L (17-59); BLOOD UREA NITROGEN 19 mg/dL (7-21); CALCIUM 8.1 mg/dL (8.4-10.5); GFR AFRICAN-AMERICAN > 60; GFR NON-AFRICAN AMERICAN > 60
[2017-06-20] MEDS: Insulin Lispro (humaLOG) MEDIUM Coverage SC SCH ×4 (08:39→21:37)
--- NOTE | 2017-06-20 09:08 | CP.PCM.PN ---
Subjective - Date & Time of Evaluation Date of Evaluation: 06/20/17 Time of Evaluation: 09:08 - Subjective Subjective: 66 y/o male seen at bedside this morning with attending Dr. Gil for right foot 3rd digit osteomyelitis with additional 5th toe diabetic ulceration. Pt confirms NPO status after midnight last night. Pt is aware he is to go to OR today at 10am for amputation of R 3rd toe. States he is agreeable to surgery. Denies F/C/N/V/CP/SOB Objective - Vital Signs/Intake and Output Vital Signs (last 24 hours): Temp Pulse Resp BP Pulse Ox 98.2 F 68 19 144/59 L 96 06/20/17 08:00 06/20/17 08:00 06/20/17 08:00 06/20/17 08:00 06/20/17 08:00 Intake and Output: 06/20/17 06/20/17 06:59 18:59 Intake Total 700 Output Total 665 Balance 35 - Medications Medications: Current Medications Aspirin (Ecotrin) 81 mg PO DAILY [facility] Last Admin: 06/18/17 09:10 Dose: Not Given Atorvastatin Calcium (Lipitor) 10 mg PO HS [facility] Last Admin: 06/19/17 21:42 Dose: 10 mg Benzocaine/Menthol (Cepacol Sore Throat) 1 main MT Q2H PRN PRN Reason: Sore Throat Last Admin: 06/20/17 00:09 Dose: 1 main Famotidine (Pepcid) 20 mg PO 1000,2200 [facility] Last Admin: 06/19/17 21:42 Dose: 20 mg Hydrochlorothiazide (Microzide) 12.5 mg PO DAILY [facility] Last Admin: 06/18/17 09:10 Dose: Not Given Hydromorphone HCl (Dilaudid) 0.5 mg IVP Q4H PRN PRN Reason: Pain, severe (8-10) Last Admin: 06/18/17 22:15 Dose: 0.5 mg Vancomycin HCl (Vancomycin 1gm) 1 gm in 250 mls @ 167 mls/hr IVPB Q12H [facility]UKESH PRN Reason: Protocol Last Admin: 06/20/17 05:31 Dose: 167 mls/hr Acetaminophen (Ofirmev) 1,000 mg in 100 mls @ 400 mls/hr IVPB Q6H PRN PRN Reason: Pain, Mild (1-3) Stop: 06/20/17 16:45 Insulin Human Lispro (Humalog Med) 0 units SC ACHS [facility] PRN Reason: Protocol Last Admin: 06/20/17 08:39 Dose: Not Given Insulin Lispro Protam/Lispro Human (Humalog Mix 75/25) 30 units SC QAM [facility] Last Admin: 06/19/17 09:30 Dose: Not Given Insulin Lispro Protam/Lispro Human (Humalog Mix 75/25) 20 units SC HS [facility] Last Admin: 06/19/17 21:47 Dose: Not Given Losartan Potassium (Cozaar) 100 mg PO DAILY [facility] Last Admin: 06/18/17 09:10 Dose: Not Given Metformin HCl (Glucophage) 500 mg PO DAILY [facility] Last Admin: 06/19/17 10:14 Dose: 500 mg Metoprolol Tartrate (Lopressor) 25 mg PO BID [facility] Last Admin: 06/19/17 17:18 Dose: 25 mg Ondansetron HCl (Zofran Inj) 4 mg IVP Q6H PRN PRN Reason: Nausea/Vomiting Oxycodone HCl (Oxycodone Immediate Release Tab) 5 mg PO Q4H PRN PRN Reason: Pain, moderate (4-7) Pantoprazole Sodium (Protonix Ec Tab) 40 mg PO 0600 [facility] Last Admin: 06/20/17 05:30 Dose: 40 mg Sitagliptin Phosphate (Januvia) 50 mg PO DAILY [facility] Last Admin: 06/18/17 09:10 Dose: Not Given - Labs Labs: 06/20/17 05:50 06/20/17 05:50 PT 14.2 SECONDS (9.4-12.5) H 06/18/17 05:30 INR 1.23 (0.93-1.08) H 06/18/17 05:30 APTT 28.9 Seconds (25.1-36.5) 06/18/17 05:30 - Constitutional Appears: Well, Non-toxic, No Acute Distress - Extremities Exam Additional comments: dressing to R foot clean dry and intact with no strikethrough noted - Neurological Exam Neurological Exam: Alert, Awake, Oriented x3 - Psychiatric Exam Psychiatric exam: Normal Affect, Normal Mood Assessment and Plan - Assessment and Plan (Free Text) Assessment: 66 y/o diabetic male with 1) right foot 3rd digit ulcer with osteomyelitis and 2 ) right foot 5th digit diabetic ulcer Plan: Pt seen and evaluated with attending Dr. Gil Labs and vitals reviewed- afebrile, WBC 8.7 NPO status confirmed Hg 8.4; type and screen done 06/17, transfuse prn Pt to go to OR for partial vs full amputation of 3rd digit right foot Podiatry will continue to follow while in house
[2017-06-20] MEDS ORDERED: Lidocaine 2% Inj (20ml) ONE (09:48)
[2017-06-20] MEDS ORDERED: Propofol 10 mg/ml Inj (20 ML) ONE (10:14)
[2017-06-20] MEDS ORDERED: Midazolam 2 MG/2 ML VIAL ONE ×2 (10:14→11:05)
--- NOTE | 2017-06-20 10:21 | CP.PCM.PN ---
Subjective - Date & Time of Evaluation Date of Evaluation: 06/20/17 Time of Evaluation: 10:18 - Subjective Subjective: Surgery Pt s&e. NAEON. Pain controlled. Denies F/C/N/V/D/CP/SOB. Possible toe amputation today. Objective - Vital Signs/Intake and Output Vital Signs (last 24 hours): Temp Pulse Resp BP Pulse Ox 98.2 F 68 19 144/59 L 96 06/20/17 08:00 06/20/17 08:00 06/20/17 08:00 06/20/17 08:00 06/20/17 08:00 Intake and Output: 06/20/17 06/20/17 06:59 18:59 Intake Total 700 Output Total 665 Balance 35 - Medications Medications: Current Medications Aspirin (Ecotrin) 81 mg PO DAILY [facility] Last Admin: 06/18/17 09:10 Dose: Not Given Atorvastatin Calcium (Lipitor) 10 mg PO HS [facility] Last Admin: 06/19/17 21:42 Dose: 10 mg Benzocaine/Menthol (Cepacol Sore Throat) 1 main MT Q2H PRN PRN Reason: Sore Throat Last Admin: 06/20/17 00:09 Dose: 1 main Famotidine (Pepcid) 20 mg PO 1000,2200 [facility] Last Admin: 06/19/17 21:42 Dose: 20 mg Hydrochlorothiazide (Microzide) 12.5 mg PO DAILY [facility] Last Admin: 06/18/17 09:10 Dose: Not Given Hydromorphone HCl (Dilaudid) 0.5 mg IVP Q4H PRN PRN Reason: Pain, severe (8-10) Last Admin: 06/18/17 22:15 Dose: 0.5 mg Vancomycin HCl (Vancomycin 1gm) 1 gm in 250 mls @ 167 mls/hr IVPB Q12H [facility]UKESH PRN Reason: Protocol Last Admin: 06/20/17 05:31 Dose: 167 mls/hr Acetaminophen (Ofirmev) 1,000 mg in 100 mls @ 400 mls/hr IVPB Q6H PRN PRN Reason: Pain, Mild (1-3) Stop: 06/20/17 16:45 Insulin Human Lispro (Humalog Med) 0 units SC ACHS [facility] PRN Reason: Protocol Last Admin: 06/20/17 08:39 Dose: Not Given Insulin Lispro Protam/Lispro Human (Humalog Mix 75/25) 30 units SC QAM [facility] Last Admin: 06/19/17 09:30 Dose: Not Given Insulin Lispro Protam/Lispro Human (Humalog Mix 75/25) 20 units SC HS [facility] Last Admin: 06/19/17 21:47 Dose: Not Given Losartan Potassium (Cozaar) 100 mg PO DAILY [facility] Last Admin: 06/18/17 09:10 Dose: Not Given Metformin HCl (Glucophage) 500 mg PO DAILY [facility] Last Admin: 06/19/17 10:14 Dose: 500 mg Metoprolol Tartrate (Lopressor) 25 mg PO BID [facility] Last Admin: 06/19/17 17:18 Dose: 25 mg Ondansetron HCl (Zofran Inj) 4 mg IVP Q6H PRN PRN Reason: Nausea/Vomiting Oxycodone HCl (Oxycodone Immediate Release Tab) 5 mg PO Q4H PRN PRN Reason: Pain, moderate (4-7) Pantoprazole Sodium (Protonix Ec Tab) 40 mg PO 0600 [facility] Last Admin: 06/20/17 05:30 Dose: 40 mg Sitagliptin Phosphate (Januvia) 50 mg PO DAILY [facility] Last Admin: 06/18/17 09:10 Dose: Not Given - Labs Labs: 06/20/17 05:50 06/20/17 05:50 PT 14.2 SECONDS (9.4-12.5) H 06/18/17 05:30 INR 1.23 (0.93-1.08) H 06/18/17 05:30 APTT 28.9 Seconds (25.1-36.5) 06/18/17 05:30 - Constitutional Appears: No Acute Distress - Head Exam Head Exam: ATRAUMATIC, NORMAL INSPECTION, NORMOCEPHALIC - Eye Exam Eye Exam: EOMI, Normal appearance, PERRL Pupil Exam: NORMAL ACCOMODATION, PERRL - ENT Exam ENT Exam: Mucous Membranes Moist, Normal Exam - Neck Exam Neck Exam: Full ROM, Normal Inspection. absent: Lymphadenopathy - Respiratory Exam Respiratory Exam: Clear to Ausculation Bilateral, NORMAL BREATHING PATTERN - Cardiovascular Exam Cardiovascular Exam: REGULAR RHYTHM, +S1, +S2. absent: Murmur - GI/Abdominal Exam GI & Abdominal Exam: Soft, Normal Bowel Sounds. absent: Distended, Firm, Guarding, Rigid, Tenderness - Extremities Exam Extremities Exam: Pedal Edema, Tenderness. absent: Normal Inspection Additional comments: R LE distal pulses, graft dopplerable. 3 phasic flow. - Back Exam Back Exam: NORMAL INSPECTION - Neurological Exam Neurological Exam: Alert, Awake, Oriented x3 - Psychiatric Exam Psychiatric exam: Normal Affect, Normal Mood - Skin Skin Exam: Dry, Erythema, Intact, Warm Assessment and Plan - Assessment and Plan (Free Text) Assessment: POD 2 s/p Popliteal - PT bypass with vein graft drain 200cc ss /24hrs -Pulse check -transfuse PRN , trend H/H -Monitor drain output. -Podiatry on board -PT/OT as tolerated -will d/w attending
[2017-06-20] MEDS ORDERED: Etomidate 20 mg/10ml Inj IV ONE (10:28)
[2017-06-20] MEDS: Insulin Lispro (humaLOG) MIX 75/25(10 ml) SC SCH ×2 (10:33→21:41)
--- NOTE | 2017-06-20 10:35 | CP.PCM.PN ---
Subjective - Date & Time of Evaluation Date of Evaluation: 06/20/17 Time of Evaluation: 10:00 - Subjective Subjective: Patient is for OR today on the right foot, no fevers, no diarrhea, no nausea, no abdominal pain. Objective - Vital Signs/Intake and Output Vital Signs (last 24 hours): Temp Pulse Resp BP Pulse Ox 98.2 F 76 32 H 152/64 H 100 06/20/17 10:00 06/20/17 10:05 06/20/17 10:05 06/20/17 10:05 06/20/17 10:05 Intake and Output: 06/20/17 06/20/17 06:59 18:59 Intake Total 700 Output Total 665 Balance 35 - Medications Medications: Current Medications Aspirin (Ecotrin) 81 mg PO DAILY [facility] Last Admin: 06/18/17 09:10 Dose: Not Given Atorvastatin Calcium (Lipitor) 10 mg PO HS [facility] Last Admin: 06/19/17 21:42 Dose: 10 mg Benzocaine/Menthol (Cepacol Sore Throat) 1 main MT Q2H PRN PRN Reason: Sore Throat Last Admin: 06/20/17 00:09 Dose: 1 main Famotidine (Pepcid) 20 mg PO 1000,2200 [facility] Last Admin: 06/19/17 21:42 Dose: 20 mg Hydrochlorothiazide (Microzide) 12.5 mg PO DAILY [facility] Last Admin: 06/18/17 09:10 Dose: Not Given Hydromorphone HCl (Dilaudid) 0.5 mg IVP Q4H PRN PRN Reason: Pain, severe (8-10) Last Admin: 06/18/17 22:15 Dose: 0.5 mg Vancomycin HCl (Vancomycin 1gm) 1 gm in 250 mls @ 167 mls/hr IVPB Q12H [facility] PRN Reason: Protocol Last Admin: 06/20/17 05:31 Dose: 167 mls/hr Acetaminophen (Ofirmev) 1,000 mg in 100 mls @ 400 mls/hr IVPB Q6H PRN PRN Reason: Pain, Mild (1-3) Stop: 06/20/17 16:45 Insulin Human Lispro (Humalog Med) 0 units SC ACHS [facility] PRN Reason: Protocol Last Admin: 06/20/17 08:39 Dose: Not Given Insulin Lispro Protam/Lispro Human (Humalog Mix 75/25) 30 units SC QAM [facility] Last Admin: 06/19/17 09:30 Dose: Not Given Insulin Lispro Protam/Lispro Human (Humalog Mix 75/25) 20 units SC HS [facility] Last Admin: 06/19/17 21:47 Dose: Not Given Losartan Potassium (Cozaar) 100 mg PO DAILY [facility] Last Admin: 06/18/17 09:10 Dose: Not Given Metformin HCl (Glucophage) 500 mg PO DAILY [facility] Last Admin: 06/19/17 10:14 Dose: 500 mg Metoprolol Tartrate (Lopressor) 25 mg PO BID [facility] Last Admin: 06/19/17 17:18 Dose: 25 mg Ondansetron HCl (Zofran Inj) 4 mg IVP Q6H PRN PRN Reason: Nausea/Vomiting Oxycodone HCl (Oxycodone Immediate Release Tab) 5 mg PO Q4H PRN PRN Reason: Pain, moderate (4-7) Pantoprazole Sodium (Protonix Ec Tab) 40 mg PO 0600 [facility] Last Admin: 06/20/17 05:30 Dose: 40 mg Sitagliptin Phosphate (Januvia) 50 mg PO DAILY [facility] Last Admin: 06/18/17 09:10 Dose: Not Given - Labs Labs: 06/20/17 05:50 06/20/17 05:50 PT 14.2 SECONDS (9.4-12.5) H 06/18/17 05:30 INR 1.23 (0.93-1.08) H 06/18/17 05:30 APTT 28.9 Seconds (25.1-36.5) 06/18/17 05:30 - Constitutional Appears: Non-toxic, Chronically Ill - Head Exam Head Exam: NORMAL INSPECTION - ENT Exam ENT Exam: Mucous Membranes Moist - Neck Exam Neck Exam: absent: Meningismus - Respiratory Exam Respiratory Exam: Decreased Breath Sounds - Cardiovascular Exam Cardiovascular Exam: +S1, +S2 - GI/Abdominal Exam GI & Abdominal Exam: Soft. absent: Tenderness Assessment and Plan - Assessment and Plan (Free Text) Plan: Assessment right foot chronic foot wound, infected with osteomyelitis as seen on MRI (3rd and 5th digits) in a patient with peripheral vascular disease S/P posterior tibial bypass graft POD #2 HTN DM S/P left BKA Plan continue Vancomycin and Zosyn - now that the patient has had revascularization, patient is for OR today for amputation of digits - follow up OR cultures and pathology will continue to monitor clinically
--- NOTE | 2017-06-20 11:59 | PCM.SURG1 ---
Surgeon's Initial Post Op Note - Surgeon's Notes Surgeon: Dr. Gil Allergy And Immunology Specialist: Dr. Gemma Blake PGY-1 Type of Anesthesia: IV Sedation, Local Anesthesia Administered By: Dr. James Pre-Operative Diagnosis: right foot 3rd digit osteomyelitis Operative Findings: see operative report. I: 9cc 2% Lidocaine plain. M: 3-0 vicryl, 4-0 nylon Post-Operative Diagnosis: same Operation Performed: partial amputation of right 3rd digit Specimen/Specimens Removed: right foot 3rd digit distal and middle phalanges Estimated Blood Loss: EBL {In ML}: 10 Blood Products Given: N/A Drains Used: No Drains Post-Op Condition: Good Date of Surgery/Procedure: 06/20/17 Time of Surgery/Procedure: 10:00
--- NOTE | 2017-06-20 13:47 | RAD ---
PROCEDURE: Right Foot Radiographs. HISTORY: s/p right foot surgery COMPARISON: MRI right foot from 06/13/2017. FINDINGS: BONES: There is interval partial surgical amputation of the 3rd toe at the level of the proximal phalanx. Bone alignment is normal. There is diffuse bone demineralization. There is no evidence of acute fracture or bone destruction JOINTS: Normal. SOFT TISSUES: Normal. OTHER FINDINGS: None. IMPRESSION: Status post partial amputation of the 3rd toe.
--- NOTE | 2017-06-20 15:54 | CARD ---
APPROVED REPORT EKG Measurement Heart [id number] <Conclusion> Sinus rhythm with 1st degree AV block Otherwise normal ECG
--- NOTE | 2017-06-20 19:14 | PN ---
DATE: REASON FOR CONSULTATION: Cardiac evaluation, risk stratification, preoperative evaluation and postop followup. SUBJECTIVE: The patient denies any chest pain, shortness of breath, or any palpitations. PHYSICAL EXAMINATION GENERAL: Not in apparent distress. VITAL SIGNS: Temperature afebrile, heart rate 79, blood pressure 156/66. HEENT: PERRLA. Extraocular muscles intact. NECK: Supple. No carotid bruits or thyromegaly. CHEST: Clear to auscultation. HEART: S1 and S2, regular. ABDOMEN: Soft. EXTREMITIES: Clubbing and cyanosis, negative. LABORATORY DATA: Blood workup as follows, WBC 8.7, hemoglobin is 8.4, hematocrit 25.7, platelet count 167,000. Chemistry shows sodium 139, potassium 3.9, chloride 108, carbon dioxide 27, anion gap of 8. BUN 19, creatinine 1.1, total protein is 4.8, albumin 2.3, albumin and globulin ratio 0.9. IMPRESSION: Severe peripheral arterial disease, status post right popliteal tibial bypass; diabetic nonhealing ulcer, diabetic foot; hypertension; hyperlipidemia; osteomyelitis of right third digit, partial amputation of right third digit today, status post right popliteal tibial bypass, left [id number] amputation; negative stress test, preoperative echocardiogram shows a preserved left ventricular function. RECOMMENDATIONS: Continue beta-alireza. Continue losartan. Continue insulin. We will transfer him to Tele. Continue antibiotics. We will follow with you. [facility] status is stable. Thank you Dr. Keller for providing us the opportunity in taking care of Prasadvarsha Perera Jr. Rosita Marsh MD
[2017-06-20] MEDS: Potassium & Sodium Phosphate PO SCH (19:51)
--- NOTE | 2017-06-20 21:31 | PN ---
DATE: SUBJECTIVE: Patient is 66 years old, seen and examined. Complains of some fullness and warmth and discomfort in the right foot, where he had fem-pop bypass, otherwise doing well. PHYSICAL EXAMINATION: VITAL SIGNS: He is afebrile, pulse 90, respirations 16, blood pressure 146/61. LUNGS: Bilateral good airflow. No rhonchi or crackle. HEART: S1 and S2 audible. ABDOMEN: Soft, nontender. No rebound, no guarding. NEUROLOGIC: He is awake, alert, oriented, able to communicate. He does have palpable pulse in the right PT, status post left BKA. LABORATORY DATA: WBC 8.7, hemoglobin 8.4, hematocrit 25.7, platelets 167. Chemistry: Sodium 139, potassium 3.9, chloride 108, CO2 of 27, BUN 19, creatinine 1.1, blood sugar of 238, phosphorus is 1.9. ASSESSMENT: 1. Severe peripheral vascular disease, status post right femoropopliteal bypass. 2. Hypertension. 3. Hyperlipidemia. 4. Left foot third and fifth toe diabetic ulcer and cellulitis. PLAN: Currently, patient is on aspirin 81 daily. He is receiving metformin. He is on insulin and Januvia. We will add Neutra-Phos. He is getting IV vancomycin. Foot wound is being monitored by Dr. Zeng. Berhane Keller MD
--- NOTE | 2017-06-21 03:20 | CP.PCM.PN ---
Subjective - Date & Time of Evaluation Date of Evaluation: 06/20/17 Time of Evaluation: 22:00 (Patient was seen earlier.) - Subjective Subjective: Patient was seen earlier. He complained of left upper arm soreness from laying in the bed. Has no other complaints. Denies chest pain, sob, nausea, sweating, palpitation. ROS negative except as mentioned above. Medical record was reviewed. This 66 year old white male was admitted for wound infection, right foot cellulitis,leukocytosis, anemia. Has PMH of IDDM,PVD , HTN,anemia. Objective - Vital Signs/Intake and Output Vital Signs (last 24 hours): Temp Pulse Resp BP Pulse Ox 97.9 F 69 18 136/52 L 98 06/21/17 00:01 06/21/17 00:01 06/21/17 00:01 06/21/17 00:01 06/21/17 00:01 Intake and Output: 06/20/17 06/21/17 18:59 06:59 Output Total 780 Balance -780 - Medications Medications: Current Medications Aspirin (Ecotrin) 81 mg PO DAILY [facility] Last Admin: 06/18/17 09:10 Dose: Not Given Atorvastatin Calcium (Lipitor) 10 mg PO HS [facility] Last Admin: 06/20/17 21:41 Dose: 10 mg Benzocaine/Menthol (Cepacol Sore Throat) 1 main MT Q2H PRN PRN Reason: Sore Throat Last Admin: 06/20/17 00:09 Dose: 1 main Famotidine (Pepcid) 20 mg PO 1000,2200 [facility] Last Admin: 06/20/17 21:41 Dose: 20 mg Hydrochlorothiazide (Microzide) 12.5 mg PO DAILY [facility] Last Admin: 06/18/17 09:10 Dose: Not Given Hydromorphone HCl (Dilaudid) 0.5 mg IVP Q4H PRN PRN Reason: Pain, severe (8-10) Last Admin: 06/18/17 22:15 Dose: 0.5 mg Vancomycin HCl (Vancomycin 1gm) 1 gm in 250 mls @ 167 mls/hr IVPB Q12H [facility] PRN Reason: Protocol Last Admin: 06/20/17 17:31 Dose: 167 mls/hr Insulin Human Lispro (Humalog Med) 0 units SC ACHS [facility] PRN Reason: Protocol Last Admin: 06/20/17 21:37 Dose: Not Given Insulin Lispro Protam/Lispro Human (Humalog Mix 75/25) 30 units SC QAM [facility] Last Admin: 06/20/17 10:33 Dose: Not Given Insulin Lispro Protam/Lispro Human (Humalog Mix 75/25) 20 units SC HS [facility] Last Admin: 06/20/17 21:41 Dose: Not Given Losartan Potassium (Cozaar) 100 mg PO DAILY [facility] Last Admin: 06/18/17 09:10 Dose: Not Given Metformin HCl (Glucophage) 500 mg PO DAILY [facility] Last Admin: 06/20/17 12:08 Dose: 500 mg Metoprolol Tartrate (Lopressor) 25 mg PO BID [facility] Last Admin: 06/20/17 17:29 Dose: 25 mg Ondansetron HCl (Zofran Inj) 4 mg IVP Q6H PRN PRN Reason: Nausea/Vomiting Oxycodone HCl (Oxycodone Immediate Release Tab) 5 mg PO Q4H PRN PRN Reason: Pain, moderate (4-7) Pantoprazole Sodium (Protonix Ec Tab) 40 mg PO 0600 [facility] Last Admin: 06/20/17 05:30 Dose: 40 mg Potassium Phos/Sodium Phos (Neutra-Phos) 1 pkt PO BID [facility] Last Admin: 06/20/17 19:51 Dose: 1 pkt Sitagliptin Phosphate (Januvia) 50 mg PO DAILY [facility] Last Admin: 06/18/17 09:10 Dose: Not Given - Labs Labs: 06/20/17 05:50 06/20/17 05:50 PT 14.2 SECONDS (9.4-12.5) H 06/18/17 05:30 INR 1.23 (0.93-1.08) H 06/18/17 05:30 APTT 28.9 Seconds (25.1-36.5) 06/18/17 05:30 Micro Results 06/20/17 11:01 Other: Please Indicate Gram Stain - Final 06/20/17 11:01 Other: Please Indicate Gram Stain - Final 06/12/17 15:50 Blood Blood Culture - Final NO GROWTH AFTER 5 DAYS 06/12/17 15:50 Blood Gram Stain - Final TEST NOT PERFORMED 06/12/17 15:20 Blood Blood Culture - Final NO GROWTH AFTER 5 DAYS 06/12/17 15:20 Blood Gram Stain - Final TEST NOT PERFORMED 06/13/17 15:28 Foot - Right Gram Stain - Final 06/13/17 15:28 Foot - Right Wound Culture - Final Klebsiella Pneumoniae Ssp Pneu 06/12/17 16:10 Urine,Clean Catch Urine Culture - Final No Growth (<1,000 CFU/ML) Most Recent Lab Values WBC 8.7 10^3/ul (4.5-11.0) 06/20/17 05:50 RBC 3.05 10^6/uL (3.5-6.1) L 06/20/17 05:50 Hgb 8.4 g/dL (14.0-18.0) L 06/20/17 05:50 Hct 25.7 % (42.0-52.0) L 06/20/17 05:50 MCV 84.3 fl (80.0-105.0) 06/20/17 05:50 MCH 27.5 pg (25.0-35.0) 06/20/17 05:50 MCHC 32.7 g/dl (31.0-37.0) 06/20/17 05:50 RDW 14.6 % (11.5-14.5) H 06/20/17 05:50 Plt Count 167 10^3/uL (120.0-450.0) 06/20/17 05:50 MPV 10.6 fl (7.0-11.0) 06/20/17 05:50 Gran % 78.9 % (50.0-68.0) H 06/20/17 05:50 Lymph % (Auto) 10.2 % (22.0-35.0) L 06/20/17 05:50 [place] % (Auto) 8.4 % (1.0-6.0) H 06/20/17 05:50 Eos % (Auto) 2.4 % (1.5-5.0) 06/20/17 05:50 Baso % (Auto) 0.1 % (0.0-3.0) 06/20/17 05:50 Gran # 6.87 (1.4-6.5) H 06/20/17 05:50 Lymph # (Auto) 0.9 (1.2-3.4) L 06/20/17 05:50 [place] # (Auto) 0.7 (0.1-0.6) H 06/20/17 05:50 Eos # (Auto) 0.2 (0.0-0.7) 06/20/17 05:50 Baso # (Auto) 0.01 K/mm3 (0.0-2.0) 06/20/17 05:50 Neutrophils % (Manual) 84 % (50.0-70.0) H 06/19/17 01:10 Band Neutrophils % 10 % (0-2) H 06/19/17 01:10 Lymphocytes % (Manual) 3 % (22.0-35.0) L 06/19/17 01:10 Monocytes % (Manual) 3 % (1.0-6.0) 06/19/17 01:10 Platelet Evaluation Normal (NORMAL) 06/19/17 01:10 ESR 25 mm/hr (0.00-15.0) H 06/13/17 16:51 PT 14.2 SECONDS (9.4-12.5) H 06/18/17 05:30 INR 1.23 (0.93-1.08) H 06/18/17 05:30 APTT 28.9 Seconds (25.1-36.5) 06/18/17 05:30 pO2 44 mm/Hg (30-55) 06/12/17 15:50 VBG pH 7.39 (7.32-7.43) 06/12/17 15:50 VBG pCO2 50.0 (40-60) 06/12/17 15:50 VBG HCO3 30.3 mmol/l (21-28) H 06/12/17 15:50 VBG Total CO2 31.8 mmol.L (22-28) H 06/12/17 15:50 VBG O2 Sat (Calc) 85.0 % (40-65) H 06/12/17 15:50 VBG Base Excess 4.2 mmol/L (0.0-2.0) H 06/12/17 15:50 VBG Potassium 4.2 mmol/L (3.6-5.2) 06/12/17 15:50 Sodium 137.0 mmol/L (132-148) 06/12/17 15:50 Chloride 103.0 mmol/L (98-107) 06/12/17 15:50 Glucose 137 mg/dl (75-110) H 06/12/17 15:50 Lactate 0.9 mmol/L (0.7-2.1) 06/12/17 15:50 FiO2 21.0 % 06/12/17 15:50 Sodium 139 mmol/L (132-148) 06/20/17 05:50 Potassium 3.9 mmol/L (3.6-5.0) 06/20/17 05:50 Chloride 108 mmol/L (98-107) H 06/20/17 05:50 Carbon Dioxide 27 mmol/L (21-33) 06/20/17 05:50 Anion Gap 8 (10-20) L 06/20/17 05:50 BUN 19 mg/dL (7-21) 06/20/17 05:50 Creatinine 1.1 mg/dl (0.8-1.5) 06/20/17 05:50 Est GFR ( Amer) > 60 06/20/17 05:50 Est GFR (Non-Af Amer) > 60 06/20/17 05:50 POC Glucose (mg/dL) 185 mg/dL (65-110) H 06/20/17 21:34 Random Glucose 237 mg/dL (70-110) H 06/20/17 05:50 Hemoglobin A1c 6.2 % (4.2-6.5) 06/13/17 16:51 Calcium 8.1 mg/dL (8.4-10.5) L 06/20/17 05:50 Phosphorus 1.9 mg/dL (2.5-4.5) L 06/20/17 05:50 Magnesium 2.1 mg/dL (1.7-2.2) 06/20/17 05:50 Total Bilirubin 0.3 mg/dL (0.2-1.3) 06/20/17 05:50 AST 21 U/L (17-59) 06/20/17 05:50 ALT 34 U/L (7-56) 06/20/17 05:50 Alkaline Phosphatase 49 U/L (38-126) 06/20/17 05:50 C-React Prot High Sens > 15.00 mg/L (1.00-3.00) H 06/12/17 15:50 Total Protein 4.8 g/dL (5.8-8.3) L 06/20/17 05:50 Albumin 2.3 g/dL (3.0-4.8) L 06/20/17 05:50 Globulin 2.5 gm/dL 06/20/17 05:50 Albumin/Globulin Ratio 0.9 (1.1-1.8) L 06/20/17 05:50 Free T4 1.14 ng/dL (0.78-2.19) 06/13/17 07:00 TSH 3rd Generation 1.50 mIU/mL (0.46-4.68) 06/13/17 07:00 Venous Blood Potassium 4.2 mmol/L (3.6-5.2) 06/12/17 15:50 Urine Color Yellow (YELLOW) 06/12/17 16:10 Urine Appearance Clear (CLEAR) 06/12/17 16:10 Urine pH 6.0 (4.7-8.0) 06/12/17 16:10 Ur Specific [place] 1.020 (1.005-1.035) 06/12/17 16:10 Urine Protein Negative mg/dL (<30 mg/dL) 06/12/17 16:10 Urine Glucose (UA) Negative mg/dL (NEGATIVE) 06/12/17 16:10 Urine Ketones Negative mg/dL (NEGATIVE) 06/12/17 16:10 Urine Blood Small (NEGATIVE) H 06/12/17 16:10 Urine Nitrate Negative (NEGATIVE) 06/12/17 16:10 Urine Bilirubin Negative (NEGATIVE) 06/12/17 16:10 Urine Urobilinogen 0.2 E.U./dL (<1 E.U./dL) 06/12/17 16:10 Ur Leukocyte Esterase Negative [place]/uL (NEGATIVE) 06/12/17 16:10 Urine RBC 2 - 5 /hpf (0-2) 06/12/17 16:10 Urine WBC 0 - 2 /hpf (0-6) 06/12/17 16:10 Ur Epithelial Cells 0 - 2 /hpf (0-5) 06/12/17 16:10 Blood Type O POSITIVE 06/17/17 12:15 Blood Type Confirm O POSITIVE 06/17/17 12:30 Antibody Screen Negative 06/17/17 12:15 Crossmatch See Detail 06/17/17 12:15 BBK History Checked No verified bt 06/17/17 12:15 - Constitutional Appears: Well, No Acute Distress - Head Exam Head Exam: ATRAUMATIC, NORMAL INSPECTION - Eye Exam Pupil Exam: NORMAL ACCOMODATION - ENT Exam ENT Exam: Normal External Ear Exam - Neck Exam Neck Exam: Normal Inspection - Respiratory Exam Respiratory Exam: NORMAL BREATHING PATTERN - Cardiovascular Exam Cardiovascular Exam: absent: JVD - GI/Abdominal Exam GI & Abdominal Exam: absent: Distended - Rectal Exam Rectal Exam: Deferred - Exam Additional comments: Deferred. - Extremities Exam Additional comments: Right foot cellulitis. - Back Exam Back Exam: NORMAL INSPECTION - Neurological Exam Neurological Exam: Alert, Awake - Psychiatric Exam Psychiatric exam: Normal Affect, Normal Mood - Skin Skin Exam: Normal Color Assessment and Plan - Assessment and Plan (Free Text) Assessment: Left shoulder/arm pain. Right foot cellulitis. HTN. PVD. IDDM. Plan: Tylenol 650 mg PO x1. Continue present management.
[2017-06-21] MEDS: Pantoprazole 40 mg EC Tab PO SCH (05:06)
[2017-06-21] MEDS: Vancomycin 1gm in NS 250ml 1 GM/250 ML BAG IVPB SCH (05:31)
[2017-06-21] MEDS: Insulin Lispro (humaLOG) MEDIUM Coverage SC SCH ×4 (07:53→22:14)
[2017-06-21 08:24] LABS: BASO # 0.01 K/mm3 (0.0-2.0); BASO % 0.1 % (0.0-3.0); EOS # 0.2 (0.0-0.7); EOS % 3.4 % (1.5-5.0); GRAN # 5.57 (1.4-6.5); GRAN % 78.8 % (50.0-68.0); HEMOGLOBIN 8.3 g/dL (14.0-18.0); LYMPH # 0.9 (1.2-3.4); LYMPH % 12.1 % (22.0-35.0); MEAN CELL VOLUME 84.4 fl (80.0-105.0); MEAN CORPUSCULAR HEMOGLOBIN 27.6 pg (25.0-35.0); MEAN CORPUSCULAR HGB CONC 32.7 g/dl (31.0-37.0); MEAN PLATELET VOLUME 9.6 fl (7.0-11.0); MONO # 0.4 (0.1-0.6); MONO % 5.6 % (1.0-6.0); RBC 3.01 10^6/uL (3.5-6.1); WHITE BLOOD COUNT 7.1 10^3/ul (4.5-11.0)
[2017-06-21 08:45] LABS: ALB/GLOB RATIO 0.9 (1.1-1.8); ALBUMIN 2.5 g/dL (3.0-4.8); ALT/SGPT 41 U/L (7-56); AST/SGOT 22 U/L (17-59); BLOOD UREA NITROGEN 18 mg/dL (7-21); CALCIUM 8.4 mg/dL (8.4-10.5); GFR AFRICAN-AMERICAN > 60; GFR NON-AFRICAN AMERICAN > 60
[2017-06-21] MEDS: Potassium & Sodium Phosphate PO SCH ×2 (09:05→17:20)
[2017-06-21] MEDS ORDERED: Potassium Chloride 20 mEq ER Tab PO ONE (09:25)
--- NOTE | 2017-06-21 09:54 | PN ---
DATE: 06/21/2017 REASON FOR THE CONSULTATION: Followup cardiac evaluation, risk stratification, preop evaluation and postop followup. SUBJECTIVE: The patient denies any chest pain, shortness of breath, any palpitations. OBJECTIVE: GENERAL: Not in any apparent distress. VITAL SIGNS: Temperature afebrile, heart rate 84, blood pressure 150/72. HEENT: PERRLA. Extraocular muscles intact. NECK: Supple. No carotid bruit. No thyromegaly. CHEST: Clear to auscultation. HEART: S1 and S2 regular. ABDOMEN: Soft. EXTREMITIES: Clubbing and cyanosis negative. LABORATORY DATA: WBC 7.1, hemoglobin 8.3, hematocrit 25.4, platelet count 178. Chemistry shows sodium 130, potassium 3.8, chloride 105, carbon dioxide 27, anion gap of 9, BUN 18, creatinine 0.9, total protein 5.2, albumin 2.5, albumin and globulin 0.9. IMPRESSION: Severe peripheral arterial disease, status post right posterior tibial bypass, status post amputation of left below-knee amputation 5 years ago, status post amputation of the third digit. Had negative stress test, preoperative echocardiogram, also preserved left ventricular function. RECOMMENDATIONS: Continue beta alireza. Continue losartan. Continue atorvastatin. Lab is not available. We will get blood workup. Today is not available. We will send a stat blood workup. We will follow with you. Thank you, Dr. Keller for providing us the opportunity in taking care of Prasad Perera. Rosita Marsh MD
--- NOTE | 2017-06-21 10:20 | CP.PCM.PN ---
Subjective - Date & Time of Evaluation Date of Evaluation: 06/21/17 Time of Evaluation: 09:50 - Subjective Subjective: Decreased pain on the right foot, no fevers, no nausea, no diarrhea. Objective - Vital Signs/Intake and Output Vital Signs (last 24 hours): Temp Pulse Resp BP Pulse Ox 97.7 F 75 16 151/72 H 99 06/21/17 05:39 06/21/17 07:59 06/21/17 07:59 06/21/17 08:00 06/21/17 07:59 Intake and Output: 06/21/17 06/21/17 06:59 18:59 Intake Total 370 Output Total 435 Balance -65 - Medications Medications: Current Medications Aspirin (Ecotrin) 81 mg PO DAILY [facility] Last Admin: 06/18/17 09:10 Dose: Not Given Atorvastatin Calcium (Lipitor) 10 mg PO [facility] Last Admin: 06/20/17 21:41 Dose: 10 mg Benzocaine/Menthol (Cepacol Sore Throat) 1 main MT Q2H PRN PRN Reason: Sore Throat Last Admin: 06/20/17 00:09 Dose: 1 main Famotidine (Pepcid) 20 mg PO 1000,2200 [facility] Last Admin: 06/20/17 21:41 Dose: 20 mg Hydrochlorothiazide (Microzide) 12.5 mg PO DAILY [facility] Last Admin: 06/18/17 09:10 Dose: Not Given Hydromorphone HCl (Dilaudid) 0.5 mg IVP Q4H PRN PRN Reason: Pain, severe (8-10) Last Admin: 06/18/17 22:15 Dose: 0.5 mg Vancomycin HCl (Vancomycin 1gm) 1 gm in 250 mls @ 167 mls/hr IVPB Q12H [facility] PRN Reason: Protocol Last Admin: 06/21/17 05:31 Dose: 167 mls/hr Insulin Human Lispro (Humalog Med) 0 units SC ACHS [facility] PRN Reason: Protocol Last Admin: 06/21/17 07:53 Dose: 3 units Insulin Lispro Protam/Lispro Human (Humalog Mix 75/25) 30 units SC QAM [facility] Last Admin: 06/20/17 10:33 Dose: Not Given Insulin Lispro Protam/Lispro Human (Humalog Mix 75/25) 20 units SC HS [facility] Last Admin: 06/20/17 21:41 Dose: Not Given Losartan Potassium (Cozaar) 100 mg PO DAILY [facility] Last Admin: 06/18/17 09:10 Dose: Not Given Metformin HCl (Glucophage) 500 mg PO DAILY [facility] Last Admin: 06/20/17 12:08 Dose: 500 mg Metoprolol Tartrate (Lopressor) 25 mg PO BID [facility] Last Admin: 06/20/17 17:29 Dose: 25 mg Ondansetron HCl (Zofran Inj) 4 mg IVP Q6H PRN PRN Reason: Nausea/Vomiting Oxycodone HCl (Oxycodone Immediate Release Tab) 5 mg PO Q4H PRN PRN Reason: Pain, moderate (4-7) Pantoprazole Sodium (Protonix Ec Tab) 40 mg PO 0600 [facility] Last Admin: 06/21/17 05:06 Dose: 40 mg Potassium Phos/Sodium Phos (Neutra-Phos) 1 pkt PO BID [facility] Last Admin: 06/20/17 19:51 Dose: 1 pkt Sitagliptin Phosphate (Januvia) 50 mg PO DAILY [facility] Last Admin: 06/18/17 09:10 Dose: Not Given - Labs Labs: 06/21/17 08:15 06/21/17 08:15 PT 14.2 SECONDS (9.4-12.5) H 06/18/17 05:30 INR 1.23 (0.93-1.08) H 06/18/17 05:30 APTT 28.9 Seconds (25.1-36.5) 06/18/17 05:30 - Constitutional Appears: Non-toxic, Chronically Ill - Head Exam Head Exam: NORMAL INSPECTION - ENT Exam ENT Exam: Mucous Membranes Moist - Neck Exam Neck Exam: absent: Meningismus - Respiratory Exam Respiratory Exam: Decreased Breath Sounds - Cardiovascular Exam Cardiovascular Exam: +S1, +S2 - GI/Abdominal Exam GI & Abdominal Exam: Soft. absent: Tenderness Assessment and Plan - Assessment and Plan (Free Text) Plan: Assessment right foot chronic foot wound, infected with osteomyelitis as seen on MRI (3rd and 5th digits) in a patient with peripheral vascular disease S/P posterior tibial bypass graft POD #3, S/P amputation of 3rd digit POD #1 HTN DM S/P left BKA Plan continue Vancomycin and Zosyn - follow up OR cultures and pathology will continue to monitor clinically
[2017-06-21] MEDS: Insulin Lispro (humaLOG) MIX 75/25(10 ml) SC SCH ×2 (10:40→22:14)
--- NOTE | 2017-06-21 12:16 | CP.PCM.PN ---
Subjective - Date & Time of Evaluation Date of Evaluation: 06/21/17 Time of Evaluation: 12:13 - Subjective Subjective: Surgery: Dr. Dacosta Pt seen and examined. Resting comfortably in bed. No acute events overnight. Pain controlled. Objective - Vital Signs/Intake and Output Vital Signs (last 24 hours): Temp Pulse Resp BP Pulse Ox 97.7 F 45 L 35 H 151/72 H 99 06/21/17 05:39 06/21/17 11:08 06/21/17 09:00 06/21/17 09:05 06/21/17 09:00 Intake and Output: 06/21/17 06/21/17 06:59 18:59 Intake Total 370 Output Total 435 Balance -65 - Medications Medications: Current Medications Aspirin (Ecotrin) 81 mg PO DAILY [facility] Last Admin: 06/18/17 09:10 Dose: Not Given Atorvastatin Calcium (Lipitor) 10 mg PO HS [facility] Last Admin: 06/20/17 21:41 Dose: 10 mg Benzocaine/Menthol (Cepacol Sore Throat) 1 main MT Q2H PRN PRN Reason: Sore Throat Last Admin: 06/20/17 00:09 Dose: 1 main Famotidine (Pepcid) 20 mg PO 1000,2200 [facility] Last Admin: 06/21/17 09:05 Dose: 20 mg Hydrochlorothiazide (Microzide) 12.5 mg PO DAILY [facility] Last Admin: 06/18/17 09:10 Dose: Not Given Hydromorphone HCl (Dilaudid) 0.5 mg IVP Q4H PRN PRN Reason: Pain, severe (8-10) Last Admin: 06/18/17 22:15 Dose: 0.5 mg Vancomycin HCl (Vancomycin 1gm) 1 gm in 250 mls @ 167 mls/hr IVPB Q12H [facility] PRN Reason: Protocol Last Admin: 06/21/17 05:31 Dose: 167 mls/hr Piperacillin Sod/Tazobactam Sod (Zosyn 3.375 In Ns 100ml) 100 mls @ 200 mls/hr IVPB Q6 [facility] PRN Reason: Protocol Stop: 06/28/17 12:01 Insulin Human Lispro (Humalog Med) 0 units SC ACHS [facility] PRN Reason: Protocol Last Admin: 06/21/17 07:53 Dose: 3 units Insulin Lispro Protam/Lispro Human (Humalog Mix 75/25) 30 units SC QAM [facility] Last Admin: 06/21/17 10:40 Dose: 30 units Insulin Lispro Protam/Lispro Human (Humalog Mix 75/25) 20 units SC HS [facility] Last Admin: 06/20/17 21:41 Dose: Not Given Losartan Potassium (Cozaar) 100 mg PO DAILY [facility] Last Admin: 06/18/17 09:10 Dose: Not Given Metformin HCl (Glucophage) 500 mg PO DAILY [facility] Last Admin: 06/21/17 09:08 Dose: 500 mg Metoprolol Tartrate (Lopressor) 25 mg PO BID [facility] Last Admin: 06/21/17 09:05 Dose: 25 mg Ondansetron HCl (Zofran Inj) 4 mg IVP Q6H PRN PRN Reason: Nausea/Vomiting Oxycodone HCl (Oxycodone Immediate Release Tab) 5 mg PO Q4H PRN PRN Reason: Pain, moderate (4-7) Pantoprazole Sodium (Protonix Ec Tab) 40 mg PO 0600 [facility] Last Admin: 06/21/17 05:06 Dose: 40 mg Potassium Phos/Sodium Phos (Neutra-Phos) 1 pkt PO BID [facility] Last Admin: 06/21/17 09:05 Dose: 1 pkt Sitagliptin Phosphate (Januvia) 50 mg PO DAILY [facility] Last Admin: 06/18/17 09:10 Dose: Not Given - Labs Labs: 06/21/17 08:15 06/21/17 08:15 PT 14.2 SECONDS (9.4-12.5) H 06/18/17 05:30 INR 1.23 (0.93-1.08) H 06/18/17 05:30 APTT 28.9 Seconds (25.1-36.5) 06/18/17 05:30 - Constitutional Appears: Non-toxic, No Acute Distress - Head Exam Head Exam: ATRAUMATIC, NORMOCEPHALIC - Eye Exam Eye Exam: EOMI. absent: Scleral icterus - ENT Exam ENT Exam: Mucous Membranes Moist - Neck Exam Neck Exam: Full ROM - Respiratory Exam Respiratory Exam: NORMAL BREATHING PATTERN. absent: Accessory Muscle Use, Respiratory Distress - Cardiovascular Exam Cardiovascular Exam: REGULAR RHYTHM - GI/Abdominal Exam GI & Abdominal Exam: Soft. absent: Tenderness - Extremities Exam Additional comments: RLE: warm, pulses dopplerable, sensation and motor fxn intact, ARBEN drain x [address] - Neurological Exam Neurological Exam: Alert, Awake, Oriented x3 - Psychiatric Exam Psychiatric exam: Normal Affect, Normal Mood Assessment and Plan - Assessment and Plan (Free Text) Assessment: 66M w. PVD, s/p R popliteal-posterior tibial bypass Plan: -ARBEN: 35cc/12hr serosang, ~10cc/12hr serosang, continue to monitor -c/w pain management -OOB to chair -PT/OT and IS use -will d/w attending Zemaitis PGY3
[2017-06-21] MEDS: Piperacillin/Tazobact 3.375 gm 100 ML IVPB SCH ×3 (12:26→23:47)
--- NOTE | 2017-06-21 13:54 | CP.PCM.PN ---
<Gemma Blake - Last Filed: 06/21/17 13:56> Subjective - Date & Time of Evaluation Date of Evaluation: 06/21/17 Time of Evaluation: 13:51 - Subjective Subjective: 66 y/o diabetic male seen at bedside this morning with attending Dr. Gil, 1 day s/p right foot partial 3rd digit amputation. Pt resting comfortably in bed in NAD. Denies any pain in the right foot. Dressing has remained intact since surgery. Pt says his RLE pain has significantly resolved since yesterday, when it was feeling uncomfortable s/p bypass. States he has not noticed any drainage on the foot bandage. Denies F/C/N/V/CP/SOB Objective - Vital Signs/Intake and Output Vital Signs (last 24 hours): Temp Pulse Resp BP Pulse Ox 97.7 F 45 L 35 H 151/72 H 99 06/21/17 05:39 06/21/17 11:08 06/21/17 09:00 06/21/17 09:05 06/21/17 09:00 Intake and Output: 06/21/17 06/21/17 06:59 18:59 Intake Total 370 Output Total 435 Balance -65 - Medications Medications: Current Medications Aspirin (Ecotrin) 81 mg PO DAILY [facility] Last Admin: 06/18/17 09:10 Dose: Not Given Atorvastatin Calcium (Lipitor) 10 mg PO HS [facility] Last Admin: 06/20/17 21:41 Dose: 10 mg Benzocaine/Menthol (Cepacol Sore Throat) 1 main MT Q2H PRN PRN Reason: Sore Throat Last Admin: 06/20/17 00:09 Dose: 1 main Famotidine (Pepcid) 20 mg PO 1000,2200 [facility] Last Admin: 06/21/17 09:05 Dose: 20 mg Hydrochlorothiazide (Microzide) 12.5 mg PO DAILY [facility] Last Admin: 06/18/17 09:10 Dose: Not Given Vancomycin HCl (Vancomycin 1gm) 1 gm in 250 mls @ 167 mls/hr IVPB Q12H [facility] PRN Reason: Protocol Last Admin: 06/21/17 05:31 Dose: 167 mls/hr Piperacillin Sod/Tazobactam Sod (Zosyn 3.375 In Ns 100ml) 100 mls @ 200 mls/hr IVPB Q6 [facility] PRN Reason: Protocol Stop: 06/28/17 12:01 Last Admin: 06/21/17 12:26 Dose: 200 mls/hr Insulin Human Lispro (Humalog Med) 0 units SC ACHS [facility] PRN Reason: Protocol Last Admin: 06/21/17 12:26 Dose: 5 units Insulin Lispro Protam/Lispro Human (Humalog Mix 75/25) 30 units SC QAM [facility] Last Admin: 06/21/17 10:40 Dose: 30 units Insulin Lispro Protam/Lispro Human (Humalog Mix 75/25) 20 units SC HS [facility] Last Admin: 06/20/17 21:41 Dose: Not Given Losartan Potassium (Cozaar) 100 mg PO DAILY [facility] Last Admin: 06/18/17 09:10 Dose: Not Given Metformin HCl (Glucophage) 500 mg PO DAILY [facility] Last Admin: 06/21/17 09:08 Dose: 500 mg Metoprolol Tartrate (Lopressor) 25 mg PO BID [facility] Last Admin: 06/21/17 09:05 Dose: 25 mg Ondansetron HCl (Zofran Inj) 4 mg IVP Q6H PRN PRN Reason: Nausea/Vomiting Oxycodone HCl (Oxycodone Immediate Release Tab) 5 mg PO Q4H PRN PRN Reason: Pain, moderate (4-7) Pantoprazole Sodium (Protonix Ec Tab) 40 mg PO 0600 [facility] Last Admin: 06/21/17 05:06 Dose: 40 mg Potassium Phos/Sodium Phos (Neutra-Phos) 1 pkt PO BID [facility] Last Admin: 06/21/17 09:05 Dose: 1 pkt Sitagliptin Phosphate (Januvia) 50 mg PO DAILY [facility] Last Admin: 06/18/17 09:10 Dose: Not Given - Labs Labs: 06/21/17 08:15 06/21/17 08:15 PT 14.2 SECONDS (9.4-12.5) H 06/18/17 05:30 INR 1.23 (0.93-1.08) H 06/18/17 05:30 APTT 28.9 Seconds (25.1-36.5) 06/18/17 05:30 - Constitutional Appears: Well, Non-toxic, No Acute Distress - Extremities Exam Additional comments: LLE BKA RLE focused exam: Vasc: DP/PT pulses palpable 1/4. Temperature gradient warm to warm. CFT < 3 sec x 4 digits; capillary refill WNL to 3rd digit amputation site. Minimal localized edema noted to 3rd digit surgical site Derm: Surgical site noted to 3rd digit proximal phalanx at site of partial digital amputation. Sutures intact with no signs of dehiscence. Skin edges are well-coapted. Sandie wound exhibits mild erythema. No purulence, no drainage, no fluctuance, no malodor noted. Additional ulceration noted to dorsomedial aspect of right foot 5th digit with fibrogranular wound base - no malodor, no fluctuance, no probe to bone, no drainage expressed. Neuro: Protective sensation grossly diminished Ortho: No tenderness noted to palpation of right foot at 3rd digit amputation site - Neurological Exam Neurological Exam: Alert, Awake, Oriented x3 - Psychiatric Exam Psychiatric exam: Normal Affect, Normal Mood Assessment and Plan - Assessment and Plan (Free Text) Assessment: 66 y/o diabetic male 1 day s/p right foot partial 3rd digit amputation, with additional right foot 5th digit diabetic ulcer Plan: Pt seen and evaluated at bedside with attending Dr. Gil Labs and vitals reviewed - afebrile, WBC 7.1 Surgical site and 5th digit ulcer cleaned with saline Dressed surgical site with adaptic and DSD; 5th digit ulcer dressed with maxorb and DSD Rx surgical shoe for patient to ambulate with protected weight bearing Wound and bone cultures from OR pending Continue IV abx as per ID Podiatry will continue to follow patient <Nicolas Gil - Last Filed: 06/21/17 15:06> Objective - Vital Signs/Intake and Output Vital Signs (last 24 hours): Temp Pulse Resp BP Pulse Ox 97.7 F 45 L 35 H 151/72 H 99 06/21/17 05:39 06/21/17 11:08 06/21/17 09:00 06/21/17 09:05 06/21/17 09:00 Intake and Output: 06/21/17 06/21/17 06:59 18:59 Intake Total 370 Output Total 435 Balance -65 - Medications Medications: Current Medications Aspirin (Ecotrin) 81 mg PO DAILY [facility] Last Admin: 06/18/17 09:10 Dose: Not Given Atorvastatin Calcium (Lipitor) 10 mg PO HS [facility] Last Admin: 06/20/17 21:41 Dose: 10 mg Benzocaine/Menthol (Cepacol Sore Throat) 1 main MT Q2H PRN PRN Reason: Sore Throat Last Admin: 06/20/17 00:09 Dose: 1 main Famotidine (Pepcid) 20 mg PO 1000,2200 [facility] Last Admin: 06/21/17 09:05 Dose: 20 mg Hydrochlorothiazide (Microzide) 12.5 mg PO DAILY [facility] Last Admin: 06/18/17 09:10 Dose: Not Given Vancomycin HCl (Vancomycin 1gm) 1 gm in 250 mls @ 167 mls/hr IVPB Q12H [facility] PRN Reason: Protocol Last Admin: 06/21/17 05:31 Dose: 167 mls/hr Piperacillin Sod/Tazobactam Sod (Zosyn 3.375 In Ns 100ml) 100 mls @ 200 mls/hr IVPB Q6 [facility] PRN Reason: Protocol Stop: 06/28/17 12:01 Last Admin: 06/21/17 12:26 Dose: 200 mls/hr Insulin Human Lispro (Humalog Med) 0 units SC ACHS [facility] PRN Reason: Protocol Last Admin: 06/21/17 12:26 Dose: 5 units Insulin Lispro Protam/Lispro Human (Humalog Mix 75/25) 30 units SC QAM [facility] Last Admin: 06/21/17 10:40 Dose: 30 units Insulin Lispro Protam/Lispro Human (Humalog Mix 75/25) 20 units SC HS [facility] Last Admin: 06/20/17 21:41 Dose: Not Given Losartan Potassium (Cozaar) 100 mg PO DAILY [facility] Last Admin: 06/18/17 09:10 Dose: Not Given Metformin HCl (Glucophage) 500 mg PO DAILY [facility] Last Admin: 06/21/17 09:08 Dose: 500 mg Metoprolol Tartrate (Lopressor) 25 mg PO BID [facility] Last Admin: 06/21/17 09:05 Dose: 25 mg Ondansetron HCl (Zofran Inj) 4 mg IVP Q6H PRN PRN Reason: Nausea/Vomiting Oxycodone HCl (Oxycodone Immediate Release Tab) 5 mg PO Q4H PRN PRN Reason: Pain, moderate (4-7) Pantoprazole Sodium (Protonix Ec Tab) 40 mg PO 0600 [facility] Last Admin: 06/21/17 05:06 Dose: 40 mg Potassium Phos/Sodium Phos (Neutra-Phos) 1 pkt PO BID [facility] Last Admin: 06/21/17 09:05 Dose: 1 pkt Sitagliptin Phosphate (Januvia) 50 mg PO DAILY [facility] Last Admin: 06/18/17 09:10 Dose: Not Given - Labs Labs: 06/21/17 08:15 06/21/17 08:15 PT 14.2 SECONDS (9.4-12.5) H 06/18/17 05:30 INR 1.23 (0.93-1.08) H 06/18/17 05:30 APTT 28.9 Seconds (25.1-36.5) 06/18/17 05:30 Attending/Attestation - Attestation I have personally seen and examined this patient.: Yes I have fully participated in the care of the patient.: Yes I have reviewed all pertinent clinical information, including history, physical exam and plan: Yes
--- NOTE | 2017-06-22 01:37 | PN ---
DATE: SUBJECTIVE: Patient is 66 years old, seen and examined, sitting in chair, seems to be comfortable. Complains of slight swelling of the right foot and the right lower leg. ARBEN tube has been in place and draining blood-tinged serous fluid. PHYSICAL EXAMINATION: GENERAL: Otherwise, he is awake, alert, oriented, and communicative. VITAL SIGNS: He is afebrile, pulse 78, respirations 13, blood pressure 142/55. LUNGS: Bilateral good airflow. No rhonchi or crackle. HEART: S1, S2 audible. ABDOMEN: Soft, nontender. No rebound. No guarding. NEUROLOGIC: He is awake, alert, oriented, able to communicate. EXTREMITIES: Status post left BKA. Right leg overall looks healthy. Had slight swelling of lower extremity in the foot. LABORATORY DATA: WBC 7.1, hemoglobin 8.3, hematocrit 25.4, platelets 178. Chemistry: Sodium 138, potassium 3.8, chloride 105, CO2 of 27, BUN 18, creatinine 0.9, blood sugar of 83. Foot wound growing Klebsiella pneumoniae. Blood cultures are negative. ASSESSMENT: 1. Severe peripheral vascular disease, status post right femoral popliteal bypass and right popliteal to posterior tibial bypass. 2. Insulin-dependent diabetes. 3. Hypertension. 4. Hyperlipidemia. 5. Left foot third and fifth toe diabetic ulcers. PLAN: Patient is clinically stable. Hemoglobin seems to be stable. He is currently on losartan 100 mg daily, aspirin 81 daily, and metformin 500 daily, we will increase it to twice a day. We will monitor the blood sugar. He is getting the insulin along with Januvia. Continue him on statins as needed. Patient is being transferred to Med/Surg. He will continue Zosyn. I will start physical therapy and reevaluate in the a.m. Berhane Keller MD
[2017-06-22] MEDS: Piperacillin/Tazobact 3.375 gm 100 ML IVPB SCH ×4 (05:16→23:46)
[2017-06-22] MEDS: Pantoprazole 40 mg EC Tab PO SCH (05:16)
--- NOTE | 2017-06-22 07:53 | CP.PCM.PN ---
Subjective - Date & Time of Evaluation Date of Evaluation: 06/22/17 Time of Evaluation: 07:49 - Subjective Subjective: Surgery Pt s&e. NAEON. Pain controlled. Denies F/C/N/V/D/CP/OB. Working w PT. Drain removed yesterday. Objective - Vital Signs/Intake and Output Vital Signs (last 24 hours): Temp Pulse Resp BP Pulse Ox 98.1 F 73 20 139/65 95 06/22/17 06:00 06/21/17 18:00 06/22/17 06:00 06/22/17 06:00 06/22/17 06:00 Intake and Output: 06/22/17 06/22/17 06:59 18:59 Intake Total 440 120 Output Total 500 575 Balance -60 -455 - Medications Medications: Current Medications Aspirin (Ecotrin) 81 mg PO DAILY [facility] Last Admin: 06/18/17 09:10 Dose: Not Given Atorvastatin Calcium (Lipitor) 10 mg PO HS [facility] Last Admin: 06/21/17 22:14 Dose: 10 mg Benzocaine/Menthol (Cepacol Sore Throat) 1 main MT Q2H PRN PRN Reason: Sore Throat Last Admin: 06/20/17 00:09 Dose: 1 main Famotidine (Pepcid) 20 mg PO 1000,2200 [facility] Last Admin: 06/21/17 22:14 Dose: 20 mg Hydrochlorothiazide (Microzide) 12.5 mg PO DAILY [facility] Last Admin: 06/18/17 09:10 Dose: Not Given Piperacillin Sod/Tazobactam Sod (Zosyn 3.375 In Ns 100ml) 100 mls @ 200 mls/hr IVPB Q6 [facility] PRN Reason: Protocol Stop: 06/28/17 12:01 Last Admin: 06/22/17 05:16 Dose: 200 mls/hr Insulin Human Lispro (Humalog Med) 0 units SC ACHS [facility] PRN Reason: Protocol Last Admin: 06/21/17 22:14 Dose: Not Given Insulin Lispro Protam/Lispro Human (Humalog Mix 75/25) 30 units SC QAM [facility] Last Admin: 06/21/17 10:40 Dose: 30 units Insulin Lispro Protam/Lispro Human (Humalog Mix 75/25) 20 units SC HS [facility] Last Admin: 06/21/17 22:14 Dose: Not Given Losartan Potassium (Cozaar) 100 mg PO DAILY [facility] Last Admin: 06/18/17 09:10 Dose: Not Given Metformin HCl (Glucophage) 500 mg PO [facility] Metoprolol Tartrate (Lopressor) 25 mg PO BID [facility] Last Admin: 06/21/17 17:20 Dose: 25 mg Ondansetron HCl (Zofran Inj) 4 mg IVP Q6H PRN PRN Reason: Nausea/Vomiting Oxycodone HCl (Oxycodone Immediate Release Tab) 5 mg PO Q4H PRN PRN Reason: Pain, moderate (4-7) Pantoprazole Sodium (Protonix Ec Tab) 40 mg PO 0600 [facility] Last Admin: 06/22/17 05:16 Dose: 40 mg Potassium Phos/Sodium Phos (Neutra-Phos) 1 pkt PO BID [facility] Last Admin: 06/21/17 17:20 Dose: 1 pkt Sitagliptin Phosphate (Januvia) 50 mg PO DAILY [facility] Last Admin: 06/18/17 09:10 Dose: Not Given - Labs Labs: 06/21/17 08:15 06/21/17 08:15 PT 14.2 SECONDS (9.4-12.5) H 06/18/17 05:30 INR 1.23 (0.93-1.08) H 06/18/17 05:30 APTT 28.9 Seconds (25.1-36.5) 06/18/17 05:30 - Constitutional Appears: No Acute Distress - Head Exam Head Exam: ATRAUMATIC, NORMAL INSPECTION, NORMOCEPHALIC - Eye Exam Eye Exam: EOMI, Normal appearance, PERRL Pupil Exam: NORMAL ACCOMODATION, PERRL - ENT Exam ENT Exam: Mucous Membranes Moist, Normal Exam - Neck Exam Neck Exam: Full ROM, Normal Inspection. absent: Lymphadenopathy - Respiratory Exam Respiratory Exam: Clear to Ausculation Bilateral, NORMAL BREATHING PATTERN - Cardiovascular Exam Cardiovascular Exam: REGULAR RHYTHM, +S1, +S2. absent: Murmur - GI/Abdominal Exam GI & Abdominal Exam: Soft, Normal Bowel Sounds. absent: Tenderness - Extremities Exam Extremities Exam: Pedal Edema Additional comments: L BKA. R dressing in place. No bleeding. dopplerable R graft and distal pulses. R foot dressing in place. - Back Exam Back Exam: NORMAL INSPECTION - Neurological Exam Neurological Exam: Alert, Awake, CN II-XII Intact, Oriented x3 - Psychiatric Exam Psychiatric exam: Normal Affect, Normal Mood - Skin Skin Exam: Dry, Intact, Normal Color, Warm Assessment and Plan - Assessment and Plan (Free Text) Assessment: 66M w. PVD, POD 4 s/p R popliteal-posterior tibial bypass. Plan: -OK to restart on DVT ppx -c/w pain management -OOB to chair -PT/OT and IS use -will d/w attending
--- NOTE | 2017-06-22 09:41 | CP.PCM.PN ---
<Francisco J Escobar - Last Filed: 06/22/17 09:38> Subjective - Date & Time of Evaluation Date of Evaluation: 06/22/17 Time of Evaluation: 09:38 - Subjective Subjective: 66 y/o diabetic male seen at bedside this morning with attending Dr. Gil, 2 days s/p right foot partial 3rd digit amputation. Patient is AAOx3 and is in NAD. Patient appears to be resting comfortably in his bed and denies of any acute overnight events. Patient denies of any pain to the right foot today. Denies F/C/N/V/CP/SOB. Denies of any other pedal complains at this time. Objective - Vital Signs/Intake and Output Vital Signs (last 24 hours): Temp Pulse Resp BP Pulse Ox 98.1 F 73 20 139/65 95 06/22/17 06:00 06/21/17 18:00 06/22/17 06:00 06/22/17 06:00 06/22/17 06:00 Intake and Output: 06/22/17 06/22/17 06:59 18:59 Intake Total 440 120 Output Total 500 575 Balance -60 -455 - Medications Medications: Current Medications Aspirin (Ecotrin) 81 mg PO DAILY [facility] Last Admin: 06/18/17 09:10 Dose: Not Given Atorvastatin Calcium (Lipitor) 10 mg PO HS [facility] Last Admin: 06/21/17 22:14 Dose: 10 mg Benzocaine/Menthol (Cepacol Sore Throat) 1 main MT Q2H PRN PRN Reason: Sore Throat Last Admin: 06/20/17 00:09 Dose: 1 main Famotidine (Pepcid) 20 mg PO 1000,2200 [facility] Last Admin: 06/21/17 22:14 Dose: 20 mg Hydrochlorothiazide (Microzide) 12.5 mg PO DAILY [facility] Last Admin: 06/18/17 09:10 Dose: Not Given Piperacillin Sod/Tazobactam Sod (Zosyn 3.375 In Ns 100ml) 100 mls @ 200 mls/hr IVPB Q6 [facility] PRN Reason: Protocol Stop: 06/28/17 12:01 Last Admin: 06/22/17 05:16 Dose: 200 mls/hr Insulin Human Lispro (Humalog Med) 0 units SC ACHS [facility] PRN Reason: Protocol Last Admin: 06/21/17 22:14 Dose: Not Given Insulin Lispro Protam/Lispro Human (Humalog Mix 75/25) 30 units SC QAM [facility] Last Admin: 06/21/17 10:40 Dose: 30 units Insulin Lispro Protam/Lispro Human (Humalog Mix 75/25) 20 units SC HS [facility] Last Admin: 06/21/17 22:14 Dose: Not Given Losartan Potassium (Cozaar) 100 mg PO DAILY [facility] Last Admin: 06/18/17 09:10 Dose: Not Given Metformin HCl (Glucophage) 500 mg PO ACBD [facility] Metoprolol Tartrate (Lopressor) 25 mg PO BID [facility] Last Admin: 06/21/17 17:20 Dose: 25 mg Ondansetron HCl (Zofran Inj) 4 mg IVP Q6H PRN PRN Reason: Nausea/Vomiting Oxycodone HCl (Oxycodone Immediate Release Tab) 5 mg PO Q4H PRN PRN Reason: Pain, moderate (4-7) Pantoprazole Sodium (Protonix Ec Tab) 40 mg PO 0600 [facility] Last Admin: 06/22/17 05:16 Dose: 40 mg Potassium Phos/Sodium Phos (Neutra-Phos) 1 pkt PO BID [facility] Last Admin: 06/21/17 17:20 Dose: 1 pkt Sitagliptin Phosphate (Januvia) 50 mg PO DAILY [facility] Last Admin: 06/18/17 09:10 Dose: Not Given - Labs Labs: 06/21/17 08:15 06/21/17 08:15 PT 14.2 SECONDS (9.4-12.5) H 06/18/17 05:30 INR 1.23 (0.93-1.08) H 06/18/17 05:30 APTT 28.9 Seconds (25.1-36.5) 06/18/17 05:30 - Constitutional Appears: Well, Non-toxic, No Acute Distress - Extremities Exam Additional comments: LLE BKA RLE focused exam: Vasc: DP/PT pulses palpable 1/4. Temperature gradient warm to warm. CFT < 3 sec x 4 digits; capillary refill WNL to 3rd digit amputation site. Minimal localized edema noted to 3rd digit surgical site Derm: Surgical site noted to 3rd digit proximal phalanx at site of partial digital amputation. Sutures intact with no signs of dehiscence. Skin edges are well-coapted. Sandie wound exhibits minimal erythema. No purulence, no drainage, no fluctuance, no malodor noted. Additional ulceration noted to dorsomedial aspect of right foot 5th digit with fibrogranular wound base - no malodor, no fluctuance, no probe to bone, no drainage expressed. Neuro: Protective sensation grossly diminished Ortho: No tenderness noted to palpation of right foot at 3rd digit amputation site - Neurological Exam Neurological Exam: Alert, Awake, Oriented x3 - Psychiatric Exam Psychiatric exam: Normal Affect, Normal Mood Assessment and Plan - Assessment and Plan (Free Text) Assessment: 66 y/o diabetic male 2 days s/p right foot partial 3rd digit amputation, with additional right foot 5th digit diabetic ulcer Plan: Pt seen and evaluated at bedside with attending Dr. Gil Labs and vitals reviewed - afebrile, WBC 7.1 as of yesterday Surgical site and 5th digit ulcer cleaned with saline Dressed surgical site with adaptic and DSD; 5th digit ulcer dressed with maxorb and DSD Rx surgical shoe for patient to ambulate with protected weight bearing Wound and bone cultures from OR pending Continue IV abx as per ID Podiatry will continue to follow patient <Nicolas Gil - Last Filed: 06/24/17 10:20> Objective - Vital Signs/Intake and Output Vital Signs (last 24 hours): Temp Pulse Resp BP Pulse Ox 98.1 F 70 20 145/68 98 06/24/17 08:18 06/24/17 10:02 06/24/17 08:18 06/24/17 10:02 06/24/17 08:18 Intake and Output: 06/24/17 06/24/17 06:59 18:59 Output Total 600 Balance -600 - Medications Medications: Current Medications Aspirin (Ecotrin) 81 mg PO DAILY [facility] Last Admin: 06/24/17 10:02 Dose: 81 mg Atorvastatin Calcium (Lipitor) 10 mg PO HS [facility] Last Admin: 06/23/17 21:15 Dose: 10 mg Benzocaine/Menthol (Cepacol Sore Throat) 1 main MT Q2H PRN PRN Reason: Sore Throat Last Admin: 06/20/17 00:09 Dose: 1 main Famotidine (Pepcid) 20 mg PO 1000,2200 [facility] Last Admin: 06/24/17 10:03 Dose: 20 mg Hydrochlorothiazide (Microzide) 12.5 mg PO DAILY [facility] Last Admin: 06/18/17 09:10 Dose: Not Given Piperacillin Sod/Tazobactam Sod (Zosyn 3.375 In Ns 100ml) 100 mls @ 200 mls/hr IVPB Q6 [facility] PRN Reason: Protocol Stop: 06/28/17 12:01 Last Admin: 06/24/17 05:39 Dose: 200 mls/hr Insulin Human Lispro (Humalog Med) 0 units SC ACHS [facility] PRN Reason: Protocol Last Admin: 06/24/17 10:01 Dose: 1 units Insulin Lispro Protam/Lispro Human (Humalog Mix 75/25) 30 units SC QAM [facility] Last Admin: 06/24/17 10:01 Dose: Not Given Insulin Lispro Protam/Lispro Human (Humalog Mix 75/25) 20 units SC HS [facility] Last Admin: 06/23/17 22:18 Dose: Not Given Losartan Potassium (Cozaar) 100 mg PO DAILY [facility] Last Admin: 06/18/17 09:10 Dose: Not Given Metformin HCl (Glucophage) 500 mg PO ACBD [facility] Last Admin: 06/24/17 10:02 Dose: 500 mg Metoprolol Tartrate (Lopressor) 25 mg PO BID [facility] Last Admin: 06/24/17 10:02 Dose: 25 mg Ondansetron HCl (Zofran Inj) 4 mg IVP Q6H PRN PRN Reason: Nausea/Vomiting Pantoprazole Sodium (Protonix Ec Tab) 40 mg PO 0600 [facility] Last Admin: 06/24/17 05:39 Dose: 40 mg Potassium Phos/Sodium Phos (Neutra-Phos) 1 pkt PO BID [facility] Last Admin: 06/24/17 10:03 Dose: 1 pkt Sitagliptin Phosphate (Januvia) 50 mg PO DAILY [facility] Last Admin: 06/18/17 09:10 Dose: Not Given - Labs Labs: 06/24/17 09:35 06/24/17 09:35 PT 14.2 SECONDS (9.4-12.5) H 06/18/17 05:30 INR 1.23 (0.93-1.08) H 06/18/17 05:30 APTT 28.9 Seconds (25.1-36.5) 06/18/17 05:30 Attending/Attestation - Attestation I have personally seen and examined this patient.: Yes I have fully participated in the care of the patient.: Yes I have reviewed all pertinent clinical information, including history, physical exam and plan: Yes
[2017-06-22] MEDS: Potassium & Sodium Phosphate PO SCH ×2 (10:04→18:12)
[2017-06-22] MEDS: Insulin Lispro (humaLOG) MEDIUM Coverage SC SCH ×4 (10:06→21:28)
[2017-06-22] MEDS: Insulin Lispro (humaLOG) MIX 75/25(10 ml) SC SCH ×2 (10:08→21:29)
--- NOTE | 2017-06-22 20:25 | PN ---
DATE: SUBJECTIVE: Patient is seen in bed, in no acute distress, nontoxic. PHYSICAL EXAMINATION: VITAL SIGNS: On exam, temperature is 98, blood pressure is 130/60, respiratory rate of 20. HEENT: Unremarkable. NECK: Supple. LUNGS: Have decreased breath sounds. HEART: Normal S1 and S2. ABDOMEN: Soft, nontender. LABORATORY DATA: Reveals a white count of 7.1, hemoglobin of 8, platelets are noted. BUN of 18, creatinine 0.9. Microbiology is noted, corynebacterium species. The patient also had Klebsiella in the foot. Blood cultures are no growth. Review of orders reveals the patient to be on Zosyn. progress note is reviewed. ASSESSMENT AND PLAN: This is a 66-year-old male, right foot chronic wound infection with osteomyelitis seen on MRI in the third and fifth digits in a patient with peripheral vascular disease status post tibial bypass graft, postprocedure day #4, status post amputation of third digit postop day #2, with hypertension, diabetes and status post left below-knee amputation, on vancomycin and Zosyn. The OR cultures with corynebacterium sensitivity pending. Operative note is reviewed from the 06/20/2017, amputation of the right foot, amputation of third digit. Dr. Keller's note is appreciated. Status post right popliteal, posterior tibial bypass, postop day #4. Thomas Murcia MD
--- NOTE | 2017-06-22 23:53 | PN ---
DATE: SUBJECTIVE: Patient is 66 years old, lying in bed, seems to be comfortable, slight discomfort to the right surgical site. PHYSICAL EXAMINATION: VITAL SIGNS: Patient has a temperature of 99.8, pulse 71, respirations 20, blood pressure . LUNGS: Bilateral fair airflow. No rhonchi or crackle. HEART: S1, S2 audible. ABDOMEN: Soft, nontender, no rebound, no guarding. NEUROLOGICAL: Patient is awake, alert, oriented, communicative. EXTREMITIES: Right leg wound seems to be clean; however, he has edema, status post left BKA. LABORATORY DATA: Blood sugar is 62 this afternoon. PLAN: Patient is currently on losartan 100 daily; we will continue that. He is on aspirin 81 daily, metformin 500 twice a day, Januvia 50 mg daily. Continue to monitor blood sugar. Continue on Zosyn. TCU evaluation has been requested. If accepted, can be transferred. Berhane Keller MD
[2017-06-23] MEDS: Pantoprazole 40 mg EC Tab PO SCH (05:20)
[2017-06-23] MEDS: Piperacillin/Tazobact 3.375 gm 100 ML IVPB SCH ×3 (05:20→18:23)
--- NOTE | 2017-06-23 09:19 | CP.PCM.PN ---
Subjective - Date & Time of Evaluation Date of Evaluation: 06/23/17 Time of Evaluation: 09:18 - Subjective Subjective: Surgery: Dr. Dacosta Pt seen and examined. Resting comfortably in bed. Pain controlled. No complaints at this time. Objective - Vital Signs/Intake and Output Vital Signs (last 24 hours): Temp Pulse Resp BP Pulse Ox 98.2 F 67 18 144/69 98 06/23/17 07:52 06/23/17 07:52 06/23/17 07:52 06/23/17 07:52 06/23/17 07:52 Intake and Output: 06/23/17 06/23/17 06:59 18:59 Intake Total 780 Output Total 1150 Balance -370 - Medications Medications: Current Medications Aspirin (Ecotrin) 81 mg PO DAILY [facility] Last Admin: 06/22/17 10:04 Dose: 81 mg Atorvastatin Calcium (Lipitor) 10 mg PO HS [facility] Last Admin: 06/22/17 21:27 Dose: 10 mg Benzocaine/Menthol (Cepacol Sore Throat) 1 main MT Q2H PRN PRN Reason: Sore Throat Last Admin: 06/20/17 00:09 Dose: 1 main Famotidine (Pepcid) 20 mg PO 1000,2200 [facility] Last Admin: 06/22/17 21:27 Dose: 20 mg Hydrochlorothiazide (Microzide) 12.5 mg PO DAILY [facility] Last Admin: 06/18/17 09:10 Dose: Not Given Piperacillin Sod/Tazobactam Sod (Zosyn 3.375 In Ns 100ml) 100 mls @ 200 mls/hr IVPB Q6 [facility] PRN Reason: Protocol Stop: 06/28/17 12:01 Last Admin: 06/23/17 05:20 Dose: 200 mls/hr Insulin Human Lispro (Humalog Med) 0 units SC ACHS [facility] PRN Reason: Protocol Last Admin: 06/22/17 21:28 Dose: Not Given Insulin Lispro Protam/Lispro Human (Humalog Mix 75/25) 30 units SC QAM [facility] Last Admin: 06/22/17 10:08 Dose: 30 units Insulin Lispro Protam/Lispro Human (Humalog Mix 75/25) 20 units SC HS [facility] Last Admin: 06/22/17 21:29 Dose: Not Given Losartan Potassium (Cozaar) 100 mg PO DAILY [facility] Last Admin: 06/18/17 09:10 Dose: Not Given Metformin HCl (Glucophage) 500 mg PO ACBD [facility] Last Admin: 06/22/17 17:00 Dose: 500 mg Metoprolol Tartrate (Lopressor) 25 mg PO BID [facility] Last Admin: 06/22/17 18:13 Dose: 25 mg Ondansetron HCl (Zofran Inj) 4 mg IVP Q6H PRN PRN Reason: Nausea/Vomiting Pantoprazole Sodium (Protonix Ec Tab) 40 mg PO 0600 [facility] Last Admin: 06/23/17 05:20 Dose: 40 mg Potassium Phos/Sodium Phos (Neutra-Phos) 1 pkt PO BID [facility] Last Admin: 06/22/17 18:12 Dose: 1 pkt Sitagliptin Phosphate (Januvia) 50 mg PO DAILY [facility] Last Admin: 06/18/17 09:10 Dose: Not Given - Labs Labs: 06/21/17 08:15 06/21/17 08:15 PT 14.2 SECONDS (9.4-12.5) H 06/18/17 05:30 INR 1.23 (0.93-1.08) H 06/18/17 05:30 APTT 28.9 Seconds (25.1-36.5) 06/18/17 05:30 - Constitutional Appears: Non-toxic, No Acute Distress - Head Exam Head Exam: ATRAUMATIC, NORMOCEPHALIC - Eye Exam Eye Exam: EOMI - ENT Exam ENT Exam: Mucous Membranes Moist - Respiratory Exam Respiratory Exam: NORMAL BREATHING PATTERN. absent: Accessory Muscle Use, Respiratory Distress - GI/Abdominal Exam GI & Abdominal Exam: Soft. absent: Distended, Firm, Guarding, Rigid, Tenderness , Rebound - Extremities Exam Additional comments: RLE: warm to touch, sensation and motor fxn intact, distal pulses dopplerable, incisions C/D/I - Neurological Exam Neurological Exam: Alert, Awake, Oriented x3 Assessment and Plan - Assessment and Plan (Free Text) Assessment: 66M w. PVD, s/p R popliteal-posterior tibial bypass, POD#5 Plan: -encourage OOB to chair -PT/OT as tolerated -Encourage IS use -will remove fidencio POD#14 -will continue to follow -d/w attending Andriy PGY3
[2017-06-23] MEDS: Potassium & Sodium Phosphate PO SCH ×2 (09:45→18:16)
[2017-06-23] MEDS: Insulin Lispro (humaLOG) MEDIUM Coverage SC SCH ×4 (09:46→22:18)
[2017-06-23] MEDS: Insulin Lispro (humaLOG) MIX 75/25(10 ml) SC SCH ×2 (09:46→22:18)
--- NOTE | 2017-06-23 11:49 | PN ---
DATE: SUBJECTIVE: Patient is 66 years old, seen and examined, lying in bed, seems to be comfortable. His right leg and foot swelling seems to be improving, minimal pain. PHYSICAL EXAMINATION: VITAL SIGNS: He is afebrile, pulse 67, respirations 18, blood pressure 144/69. LUNGS: Bilateral good airflow. No rhonchi or crackle. HEART: S1, S2 audible. ABDOMEN: Soft, nontender, no rebound, no guarding. NEUROLOGICAL: He is awake, alert, oriented. EXTREMITIES: Right foot and leg swelling has improved. He has ARBEN drain in his upper wound, thigh wound area, status post left BKA. LABORATORY DATA: His blood sugar is 140 this morning. ASSESSMENT AND PLAN: 1. Peripheral vascular disease, status post right popliteal to posterior tibial bypass. 2. Xvl-oebfetj-xwfuknnzs diabetes. 3. Hypertension. 4. Hyperlipidemia. PLAN: Currently, the patient is on Zosyn. He is on Cozaar for his blood pressure, I will continue him on aspirin. He is on metformin. Continue him on Januvia, statins and he needs physical therapy and gait training. We will request to physical therapy evaluation and TCU evaluation. Berhane Keller MD
--- NOTE | 2017-06-23 12:44 | CP.PCM.PN ---
Subjective - Date & Time of Evaluation Date of Evaluation: 06/23/17 Time of Evaluation: 12:41 - Subjective Subjective: Podiatry Progress note: Dr. Gil/Dr. Zeng 66 y/o diabetic male seen at bedside this morning, 3 days s/p right foot partial 3rd digit amputation. Patient is AAOx3 and is in NAD. Patient appears to be resting comfortably in his bed and denies of any acute overnight events. Patient denies of any pain to the right foot today. Denies F/C/N/V/CP/SOB. Denies of any other pedal complains at this time. Objective - Vital Signs/Intake and Output Vital Signs (last 24 hours): Temp Pulse Resp BP Pulse Ox 98.2 F 67 18 144/69 98 06/23/17 07:52 06/23/17 09:45 06/23/17 07:52 06/23/17 09:45 06/23/17 07:52 Intake and Output: 06/23/17 06/23/17 06:59 18:59 Intake Total 780 Output Total 1150 0 Balance -370 0 - Medications Medications: Current Medications Aspirin (Ecotrin) 81 mg PO DAILY [facility] Last Admin: 06/23/17 09:45 Dose: 81 mg Atorvastatin Calcium (Lipitor) 10 mg PO HS [facility] Last Admin: 06/22/17 21:27 Dose: 10 mg Benzocaine/Menthol (Cepacol Sore Throat) 1 main MT Q2H PRN PRN Reason: Sore Throat Last Admin: 06/20/17 00:09 Dose: 1 main Famotidine (Pepcid) 20 mg PO 1000,2200 [facility] Last Admin: 06/23/17 09:45 Dose: 20 mg Hydrochlorothiazide (Microzide) 12.5 mg PO DAILY [facility] Last Admin: 06/18/17 09:10 Dose: Not Given Piperacillin Sod/Tazobactam Sod (Zosyn 3.375 In Ns 100ml) 100 mls @ 200 mls/hr IVPB Q6 [facility] PRN Reason: Protocol Stop: 06/28/17 12:01 Last Admin: 06/23/17 05:20 Dose: 200 mls/hr Insulin Human Lispro (Humalog Med) 0 units SC ACHS [facility] PRN Reason: Protocol Last Admin: 06/23/17 09:46 Dose: Not Given Insulin Lispro Protam/Lispro Human (Humalog Mix 75/25) 30 units SC QAM [facility] Last Admin: 06/23/17 09:46 Dose: 30 unit Insulin Lispro Protam/Lispro Human (Humalog Mix 75/25) 20 units SC HS [facility] Last Admin: 06/22/17 21:29 Dose: Not Given Losartan Potassium (Cozaar) 100 mg PO DAILY [facility] Last Admin: 06/18/17 09:10 Dose: Not Given Metformin HCl (Glucophage) 500 mg PO ACBD [facility] Last Admin: 06/23/17 08:00 Dose: 500 mg Metoprolol Tartrate (Lopressor) 25 mg PO BID [facility] Last Admin: 06/23/17 09:45 Dose: 25 mg Ondansetron HCl (Zofran Inj) 4 mg IVP Q6H PRN PRN Reason: Nausea/Vomiting Pantoprazole Sodium (Protonix Ec Tab) 40 mg PO 0600 [facility] Last Admin: 06/23/17 05:20 Dose: 40 mg Potassium Phos/Sodium Phos (Neutra-Phos) 1 pkt PO BID [facility] Last Admin: 06/23/17 09:45 Dose: 1 pkt Sitagliptin Phosphate (Januvia) 50 mg PO DAILY [facility] Last Admin: 06/18/17 09:10 Dose: Not Given - Labs Labs: 06/21/17 08:15 06/21/17 08:15 PT 14.2 SECONDS (9.4-12.5) H 06/18/17 05:30 INR 1.23 (0.93-1.08) H 06/18/17 05:30 APTT 28.9 Seconds (25.1-36.5) 06/18/17 05:30 - Constitutional Appears: Well, Non-toxic, No Acute Distress - Extremities Exam Additional comments: LLE BKA RLE focused exam: Vasc: DP/PT pulses palpable 1/4. Temperature gradient warm to warm. CFT < 3 sec x 4 digits; capillary refill WNL to 3rd digit amputation site. Minimal localized edema noted to 3rd digit surgical site Derm: Surgical site noted to 3rd digit proximal phalanx at site of partial digital amputation. Sutures intact with no signs of dehiscence. Skin edges are well-coapted. Sandie wound exhibits minimal erythema. No purulence, no drainage, no fluctuance, no malodor noted. Additional ulceration noted to dorsomedial aspect of right foot 5th digit with fibrogranular wound base - no malodor, no fluctuance, no probe to bone, no drainage expressed. Neuro: Protective sensation grossly diminished Ortho: No tenderness noted to palpation of right foot at 3rd digit amputation site - Neurological Exam Neurological Exam: Alert, Awake, Oriented x3 - Psychiatric Exam Psychiatric exam: Normal Affect, Normal Mood Assessment and Plan - Assessment and Plan (Free Text) Assessment: 66 y/o diabetic male 3 days s/p right foot partial 3rd digit amputation, with additional right foot 5th digit diabetic ulcer Plan: Pt seen and evaluated at bedside Discussed plan with Dr. Zeng Labs and vitals reviewed - afebrile, WBC 7.1 as of 06/21 Surgical site and 5th digit ulcer cleaned with saline Dressed surgical site with adaptic and DSD; 5th digit ulcer dressed with maxorb and DSD Rx surgical shoe for patient to ambulate with protected weight bearing Wound and bone cultures from OR - Corynebacterium species Continue IV abx as per ID Podiatry will continue to follow patient
--- NOTE | 2017-06-24 00:01 | PN ---
DATE: 06/23/2017 SUBJECTIVE: Patient is seen in bed, in no acute distress, was seen earlier this morning at 3:57, bed 2. No fevers, no chills. PHYSICAL EXAMINATION: VITAL SIGNS: On exam, temperature is 98, blood pressure is 130/70, respiratory rate of 18. HEENT: Unremarkable. NECK: Supple. LUNGS: Have decreased breath sounds. HEART: Normal S1 and S2. ABDOMEN: Soft, nontender. LABORATORY DATA: Reveals a white count of 7.1, hemoglobin of 8, platelets of 178. Chemistries are noted and BUN of 18, creatinine of 0.9. Microbiology is noted. ASSESSMENT AND PLAN: This is a 66-year-old male with a right foot chronic wound infection, osteomyelitis on MRI on the third and fifth digits on a patient with peripheral vascular disease status post tibial bypass graft, postprocedure day number 5; status post amputation of the third digit, postop day number 3; with hypertension, diabetes, and status post left below-knee amputation. On vancomycin and Zosyn. OR cultures with corynebacterium sensitivity noted and patient, on 06/20, had amputation of the right foot, third digit, posterior tibial bypass postop day number 5. We will follow closely with you. Thomas Murcia MD
[2017-06-24] MEDS: Piperacillin/Tazobact 3.375 gm 100 ML IVPB SCH ×5 (01:05→23:33)
[2017-06-24] MEDS: Pantoprazole 40 mg EC Tab PO SCH (05:39)
--- NOTE | 2017-06-24 07:29 | CP.PCM.PN ---
Subjective - Date & Time of Evaluation Date of Evaluation: 06/24/17 Time of Evaluation: 07:25 - Subjective Subjective: Surgery Pt s&e. NAEON. Denies F/C/N/V/D/CP/SOB. Working w PT. No complaints. Objective - Vital Signs/Intake and Output Vital Signs (last 24 hours): Temp Pulse Resp BP Pulse Ox 98.1 F 72 18 138/76 98 06/23/17 16:00 06/23/17 18:16 06/23/17 16:00 06/23/17 18:16 06/23/17 16:00 Intake and Output: 06/24/17 06/24/17 06:59 18:59 Output Total 600 Balance -600 - Medications Medications: Current Medications Aspirin (Ecotrin) 81 mg PO DAILY [facility] Last Admin: 06/23/17 09:45 Dose: 81 mg Atorvastatin Calcium (Lipitor) 10 mg PO HS [facility] Last Admin: 06/23/17 21:15 Dose: 10 mg Benzocaine/Menthol (Cepacol Sore Throat) 1 main MT Q2H PRN PRN Reason: Sore Throat Last Admin: 06/20/17 00:09 Dose: 1 main Famotidine (Pepcid) 20 mg PO 1000,2200 [facility] Last Admin: 06/23/17 21:15 Dose: 20 mg Hydrochlorothiazide (Microzide) 12.5 mg PO DAILY [facility] Last Admin: 06/18/17 09:10 Dose: Not Given Piperacillin Sod/Tazobactam Sod (Zosyn 3.375 In Ns 100ml) 100 mls @ 200 mls/hr IVPB Q6 [facility] PRN Reason: Protocol Stop: 06/28/17 12:01 Last Admin: 06/24/17 05:39 Dose: 200 mls/hr Insulin Human Lispro (Humalog Med) 0 units SC ACHS [facility] PRN Reason: Protocol Last Admin: 06/23/17 22:18 Dose: Not Given Insulin Lispro Protam/Lispro Human (Humalog Mix 75/25) 30 units SC QAM [facility] Last Admin: 06/23/17 09:46 Dose: 30 unit Insulin Lispro Protam/Lispro Human (Humalog Mix 75/25) 20 units SC HS [facility] Last Admin: 06/23/17 22:18 Dose: Not Given Losartan Potassium (Cozaar) 100 mg PO DAILY [facility] Last Admin: 06/18/17 09:10 Dose: Not Given Metformin HCl (Glucophage) 500 mg PO ACBD [facility] Last Admin: 06/23/17 17:00 Dose: 500 mg Metoprolol Tartrate (Lopressor) 25 mg PO BID [facility] Last Admin: 06/23/17 18:16 Dose: 25 mg Ondansetron HCl (Zofran Inj) 4 mg IVP Q6H PRN PRN Reason: Nausea/Vomiting Pantoprazole Sodium (Protonix Ec Tab) 40 mg PO 0600 [facility] Last Admin: 06/24/17 05:39 Dose: 40 mg Potassium Phos/Sodium Phos (Neutra-Phos) 1 pkt PO BID [facility] Last Admin: 06/23/17 18:16 Dose: 1 pkt Sitagliptin Phosphate (Januvia) 50 mg PO DAILY [facility] Last Admin: 06/18/17 09:10 Dose: Not Given - Labs Labs: 06/21/17 08:15 06/21/17 08:15 PT 14.2 SECONDS (9.4-12.5) H 06/18/17 05:30 INR 1.23 (0.93-1.08) H 06/18/17 05:30 APTT 28.9 Seconds (25.1-36.5) 06/18/17 05:30 - Constitutional Appears: No Acute Distress - Head Exam Head Exam: ATRAUMATIC, NORMAL INSPECTION, NORMOCEPHALIC - Eye Exam Eye Exam: EOMI, Normal appearance, PERRL Pupil Exam: NORMAL ACCOMODATION, PERRL - ENT Exam ENT Exam: Mucous Membranes Moist, Normal Exam - Neck Exam Neck Exam: Full ROM, Normal Inspection. absent: Lymphadenopathy - Respiratory Exam Respiratory Exam: Clear to Ausculation Bilateral, NORMAL BREATHING PATTERN - Cardiovascular Exam Cardiovascular Exam: REGULAR RHYTHM, +S1, +S2. absent: Murmur - GI/Abdominal Exam GI & Abdominal Exam: Soft, Normal Bowel Sounds. absent: Tenderness - Rectal Exam Rectal Exam: NORMAL INSPECTION - Exam Exam: NORMAL INSPECTION - Extremities Exam Extremities Exam: Full ROM, Normal Capillary Refill. absent: Joint Swelling, Normal Inspection, Pedal Edema Additional comments: L BKA. R foot has dressing C/D/I. distal pulses dopplerable. Graft dopplerable. - Back Exam Back Exam: NORMAL INSPECTION - Psychiatric Exam Psychiatric exam: Normal Affect, Normal Mood - Skin Skin Exam: Dry, Intact, Warm Assessment and Plan - Assessment and Plan (Free Text) Assessment: 66M w. PVD, s/p R popliteal-posterior tibial bypass, POD#6 Plan: -encourage OOB to chair -PT/OT as tolerated -Encourage IS use -will remove fidencio POD#14 -will continue to follow -Will d/w attending
--- NOTE | 2017-06-24 09:34 | CP.PCM.PN ---
<Gemma Blake - Last Filed: 06/24/17 09:35> Subjective - Date & Time of Evaluation Date of Evaluation: 06/24/17 Time of Evaluation: 09:32 - Subjective Subjective: Podiatry Progress note: Dr. Gil 66 y/o diabetic male seen at bedside this morning with attending Dr. Gil, 4 days s/p right foot partial 3rd digit amputation. Patient is AAOx3 and is in NAD. Patient appears to be resting comfortably in his bed. States he is still having some pain in the 3rd toe but it is mild. Says he has not received his surgical shoe and has not been walking on the right limb. Denies F/C/N/V/CP/ SOB. Has no other pedal complaints. Objective - Vital Signs/Intake and Output Vital Signs (last 24 hours): Temp Pulse Resp BP Pulse Ox 98.1 F 70 20 145/68 98 06/24/17 08:18 06/24/17 08:18 06/24/17 08:18 06/24/17 08:18 06/24/17 08:18 Intake and Output: 06/24/17 06/24/17 06:59 18:59 Output Total 600 Balance -600 - Medications Medications: Current Medications Aspirin (Ecotrin) 81 mg PO DAILY [facility] Last Admin: 06/23/17 09:45 Dose: 81 mg Atorvastatin Calcium (Lipitor) 10 mg PO HS [facility] Last Admin: 06/23/17 21:15 Dose: 10 mg Benzocaine/Menthol (Cepacol Sore Throat) 1 main MT Q2H PRN PRN Reason: Sore Throat Last Admin: 06/20/17 00:09 Dose: 1 main Famotidine (Pepcid) 20 mg PO 1000,2200 [facility] Last Admin: 06/23/17 21:15 Dose: 20 mg Hydrochlorothiazide (Microzide) 12.5 mg PO DAILY [facility] Last Admin: 06/18/17 09:10 Dose: Not Given Piperacillin Sod/Tazobactam Sod (Zosyn 3.375 In Ns 100ml) 100 mls @ 200 mls/hr IVPB Q6 [facility] PRN Reason: Protocol Stop: 06/28/17 12:01 Last Admin: 06/24/17 05:39 Dose: 200 mls/hr Insulin Human Lispro (Humalog Med) 0 units SC ACHS [facility] PRN Reason: Protocol Last Admin: 06/23/17 22:18 Dose: Not Given Insulin Lispro Protam/Lispro Human (Humalog Mix 75/25) 30 units SC QAM [facility] Last Admin: 06/23/17 09:46 Dose: 30 unit Insulin Lispro Protam/Lispro Human (Humalog Mix 75/25) 20 units SC HS [facility] Last Admin: 06/23/17 22:18 Dose: Not Given Losartan Potassium (Cozaar) 100 mg PO DAILY [facility] Last Admin: 06/18/17 09:10 Dose: Not Given Metformin HCl (Glucophage) 500 mg PO ACBD [facility] Last Admin: 06/23/17 17:00 Dose: 500 mg Metoprolol Tartrate (Lopressor) 25 mg PO BID [facility] Last Admin: 06/23/17 18:16 Dose: 25 mg Ondansetron HCl (Zofran Inj) 4 mg IVP Q6H PRN PRN Reason: Nausea/Vomiting Pantoprazole Sodium (Protonix Ec Tab) 40 mg PO 0600 [facility] Last Admin: 06/24/17 05:39 Dose: 40 mg Potassium Phos/Sodium Phos (Neutra-Phos) 1 pkt PO BID [facility] Last Admin: 06/23/17 18:16 Dose: 1 pkt Sitagliptin Phosphate (Januvia) 50 mg PO DAILY [facility] Last Admin: 06/18/17 09:10 Dose: Not Given - Labs Labs: 06/21/17 08:15 06/21/17 08:15 PT 14.2 SECONDS (9.4-12.5) H 06/18/17 05:30 INR 1.23 (0.93-1.08) H 06/18/17 05:30 APTT 28.9 Seconds (25.1-36.5) 06/18/17 05:30 - Constitutional Appears: Well, Non-toxic, No Acute Distress - Extremities Exam Additional comments: LLE BKA RLE focused exam: Vasc: DP/PT pulses palpable 1/4. Temperature gradient warm to warm. CFT < 3 sec x 4 digits; capillary refill WNL to 3rd digit amputation site. Minimal localized edema noted to 3rd digit surgical site Derm: Surgical site noted to 3rd digit proximal phalanx at site of partial digital amputation. Sutures intact with no signs of dehiscence. Skin edges are well-coapted. Sandie wound exhibits minimal erythema. No purulence, no drainage, no fluctuance, no malodor noted. Additional ulceration noted to dorsomedial aspect of right foot 5th digit with fibrogranular wound base - no malodor, no fluctuance, no probe to bone, no drainage expressed. Neuro: Protective sensation grossly diminished Ortho: No tenderness noted to palpation of right foot at 3rd digit amputation site - Neurological Exam Neurological Exam: Alert, Awake, Oriented x3 - Psychiatric Exam Psychiatric exam: Normal Affect, Normal Mood Assessment and Plan - Assessment and Plan (Free Text) Assessment: 66 y/o diabetic male 4 days s/p right foot partial 3rd digit amputation, with additional right foot 5th digit diabetic ulcer Plan: Pt seen and evaluated at bedside with Dr. Gil Labs and vitals reviewed - afebrile, WBC 7.1 as of 06/21 Surgical site and 5th digit ulcer cleaned with saline Dressed surgical site and 5th digit ulceration with adaptic and DSD Rx surgical shoe for patient to ambulate with protected weight bearing Wound and bone cultures from OR - Corynebacterium species Continue IV abx as per Alesha Kang Podiatry will continue to follow patient <Nicolas Gil - Last Filed: 06/24/17 10:28> Objective - Vital Signs/Intake and Output Vital Signs (last 24 hours): Temp Pulse Resp BP Pulse Ox 98.1 F 70 20 145/68 98 06/24/17 08:18 06/24/17 10:02 06/24/17 08:18 06/24/17 10:02 06/24/17 08:18 Intake and Output: 06/24/17 06/24/17 06:59 18:59 Output Total 600 Balance -600 - Medications Medications: Current Medications Aspirin (Ecotrin) 81 mg PO DAILY [facility] Last Admin: 06/24/17 10:02 Dose: 81 mg Atorvastatin Calcium (Lipitor) 10 mg PO HS [facility] Last Admin: 06/23/17 21:15 Dose: 10 mg Benzocaine/Menthol (Cepacol Sore Throat) 1 main MT Q2H PRN PRN Reason: Sore Throat Last Admin: 06/20/17 00:09 Dose: 1 main Famotidine (Pepcid) 20 mg PO 1000,2200 [facility] Last Admin: 06/24/17 10:03 Dose: 20 mg Hydrochlorothiazide (Microzide) 12.5 mg PO DAILY [facility] Last Admin: 06/18/17 09:10 Dose: Not Given Piperacillin Sod/Tazobactam Sod (Zosyn 3.375 In Ns 100ml) 100 mls @ 200 mls/hr IVPB Q6 [facility] PRN Reason: Protocol Stop: 06/28/17 12:01 Last Admin: 06/24/17 05:39 Dose: 200 mls/hr Insulin Human Lispro (Humalog Med) 0 units SC ACHS [facility] PRN Reason: Protocol Last Admin: 06/24/17 10:01 Dose: 1 units Insulin Lispro Protam/Lispro Human (Humalog Mix 75/25) 30 units SC QAM [facility] Last Admin: 06/24/17 10:01 Dose: Not Given Insulin Lispro Protam/Lispro Human (Humalog Mix 75/25) 20 units SC HS [facility] Last Admin: 06/23/17 22:18 Dose: Not Given Losartan Potassium (Cozaar) 100 mg PO DAILY [facility] Last Admin: 06/18/17 09:10 Dose: Not Given Metformin HCl (Glucophage) 500 mg PO ACBD [facility] Last Admin: 06/24/17 10:02 Dose: 500 mg Metoprolol Tartrate (Lopressor) 25 mg PO BID [facility] Last Admin: 06/24/17 10:02 Dose: 25 mg Ondansetron HCl (Zofran Inj) 4 mg IVP Q6H PRN PRN Reason: Nausea/Vomiting Pantoprazole Sodium (Protonix Ec Tab) 40 mg PO 0600 [facility] Last Admin: 06/24/17 05:39 Dose: 40 mg Potassium Phos/Sodium Phos (Neutra-Phos) 1 pkt PO BID [facility] Last Admin: 06/24/17 10:03 Dose: 1 pkt Sitagliptin Phosphate (Januvia) 50 mg PO DAILY [facility] Last Admin: 06/18/17 09:10 Dose: Not Given - Labs Labs: 06/24/17 09:35 06/24/17 09:35 PT 14.2 SECONDS (9.4-12.5) H 06/18/17 05:30 INR 1.23 (0.93-1.08) H 06/18/17 05:30 APTT 28.9 Seconds (25.1-36.5) 06/18/17 05:30 Attending/Attestation - Attestation I have personally seen and examined this patient.: Yes I have fully participated in the care of the patient.: Yes I have reviewed all pertinent clinical information, including history, physical exam and plan: Yes
[2017-06-24 09:43] LABS: BASO # 0.02 K/mm3 (0.0-2.0); BASO % 0.3 % (0.0-3.0); EOS # 0.3 (0.0-0.7); EOS % 3.6 % (1.5-5.0); GRAN # 6.32 (1.4-6.5); GRAN % 79.2 % (50.0-68.0); HEMOGLOBIN 9.2 g/dL (14.0-18.0); MEAN CELL VOLUME 84.2 fl (80.0-105.0); MEAN CORPUSCULAR HEMOGLOBIN 27.9 pg (25.0-35.0); MEAN CORPUSCULAR HGB CONC 33.1 g/dl (31.0-37.0); MONO # 0.4 (0.1-0.6); MONO % 4.9 % (1.0-6.0); RBC 3.3 10^6/uL (3.5-6.1); RED CELL DISTRIBUTION WIDTH 14.1 % (11.5-14.5)
[2017-06-24 09:55] LABS: ALT/SGPT 42 U/L (7-56); AST/SGOT 33 U/L (17-59); BLOOD UREA NITROGEN 16 mg/dL (7-21); CALCIUM 9.1 mg/dL (8.4-10.5); GFR AFRICAN-AMERICAN > 60; GFR NON-AFRICAN AMERICAN > 60
[2017-06-24] MEDS: Insulin Lispro (humaLOG) MIX 75/25(10 ml) SC SCH ×2 (10:01→21:58)
[2017-06-24] MEDS: Insulin Lispro (humaLOG) MEDIUM Coverage SC SCH ×4 (10:01→21:49)
[2017-06-24] MEDS: Potassium & Sodium Phosphate PO SCH ×2 (10:03→17:25)
--- NOTE | 2017-06-24 15:52 | CP.PCM.PN ---
Subjective - Date & Time of Evaluation Date of Evaluation: 06/24/17 Time of Evaluation: 10:40 - Subjective Subjective: Comfortable, no fevers, not in distress. Objective - Vital Signs/Intake and Output Vital Signs (last 24 hours): Temp Pulse Resp BP Pulse Ox 98.1 F 70 20 145/68 98 06/24/17 08:18 06/24/17 08:18 06/24/17 08:18 06/24/17 08:18 06/24/17 08:18 Intake and Output: 06/24/17 06/24/17 06:59 18:59 Output Total 600 Balance -600 - Medications Medications: Current Medications Aspirin (Ecotrin) 81 mg PO DAILY [facility] Last Admin: 06/23/17 09:45 Dose: 81 mg Atorvastatin Calcium (Lipitor) 10 mg PO HS [facility] Last Admin: 06/23/17 21:15 Dose: 10 mg Benzocaine/Menthol (Cepacol Sore Throat) 1 main MT Q2H PRN PRN Reason: Sore Throat Last Admin: 06/20/17 00:09 Dose: 1 main Famotidine (Pepcid) 20 mg PO 1000,2200 [facility] Last Admin: 06/23/17 21:15 Dose: 20 mg Hydrochlorothiazide (Microzide) 12.5 mg PO DAILY [facility] Last Admin: 06/18/17 09:10 Dose: Not Given Piperacillin Sod/Tazobactam Sod (Zosyn 3.375 In Ns 100ml) 100 mls @ 200 mls/hr IVPB Q6 [facility] PRN Reason: Protocol Stop: 06/28/17 12:01 Last Admin: 06/24/17 05:39 Dose: 200 mls/hr Insulin Human Lispro (Humalog Med) 0 units SC ACHS [facility] PRN Reason: Protocol Last Admin: 06/23/17 22:18 Dose: Not Given Insulin Lispro Protam/Lispro Human (Humalog Mix 75/25) 30 units SC QAM [facility] Last Admin: 06/23/17 09:46 Dose: 30 unit Insulin Lispro Protam/Lispro Human (Humalog Mix 75/25) 20 units SC HS [facility] Last Admin: 06/23/17 22:18 Dose: Not Given Losartan Potassium (Cozaar) 100 mg PO DAILY [facility] Last Admin: 06/18/17 09:10 Dose: Not Given Metformin HCl (Glucophage) 500 mg PO ACBD [facility] Last Admin: 06/23/17 17:00 Dose: 500 mg Metoprolol Tartrate (Lopressor) 25 mg PO BID [facility] Last Admin: 06/23/17 18:16 Dose: 25 mg Ondansetron HCl (Zofran Inj) 4 mg IVP Q6H PRN PRN Reason: Nausea/Vomiting Pantoprazole Sodium (Protonix Ec Tab) 40 mg PO 0600 [facility] Last Admin: 06/24/17 05:39 Dose: 40 mg Potassium Phos/Sodium Phos (Neutra-Phos) 1 pkt PO BID [facility] Last Admin: 06/23/17 18:16 Dose: 1 pkt Sitagliptin Phosphate (Januvia) 50 mg PO DAILY [facility] Last Admin: 06/18/17 09:10 Dose: Not Given - Labs Labs: 06/21/17 08:15 06/21/17 08:15 PT 14.2 SECONDS (9.4-12.5) H 06/18/17 05:30 INR 1.23 (0.93-1.08) H 06/18/17 05:30 APTT 28.9 Seconds (25.1-36.5) 06/18/17 05:30 - Constitutional Appears: Non-toxic - Head Exam Head Exam: NORMAL INSPECTION - ENT Exam ENT Exam: Mucous Membranes Moist - Neck Exam Neck Exam: absent: Meningismus - Respiratory Exam Respiratory Exam: Decreased Breath Sounds - Cardiovascular Exam Cardiovascular Exam: +S1, +S2 - GI/Abdominal Exam GI & Abdominal Exam: Soft. absent: Tenderness - Extremities Exam Additional comments: right foot with dressings in place Assessment and Plan - Assessment and Plan (Free Text) Plan: Assessment right foot chronic foot wound, infected with osteomyelitis as seen on MRI (3rd and 5th digits) in a patient with peripheral vascular disease S/P posterior tibial bypass graft POD #6, S/P amputation of 3rd digit POD #4 - margins still showing acute osteomyelitis HTN DM S/P left BKA Plan continue Vancomycin and Zosyn - follow up OR cultures; reviewed pathology - patient will need 4-6 weeks of antibiotics with weekly ESR, CRP, CBC, CMP with outpatient follow up with Podiatry will continue to monitor clinically
[2017-06-24] MEDS ORDERED: Vancomycin 1gm in NS 250ml 1 GM/250 ML BAG IVPB SCH (16:00)
--- NOTE | 2017-06-24 16:44 | PN ---
DATE: SUBJECTIVE: Patient is 66 years old seen and examined, sitting in chair. He states his right leg swelling and pain have improved. He denies any nausea or vomiting. Eating and tolerating. OBJECTIVE: VITAL SIGNS: He is afebrile, pulse 70, respirations 20, blood pressure 145/68. LUNGS: Bilateral good airflow. No rhonchi or crackles. HEART: S1, S2 audible. ABDOMEN: Soft and nontender. No rebound, no guarding. NEUROLOGIC: He is awake, alert, and oriented, able to communicate. He is status post left BKA. Right leg wound seems to be healing well. ARBEN has been removed. Swelling of the foot and leg has improved. LABORATORY EXAM: WBC is 8, hemoglobin 9.2, hematocrit 27, and platelets of 305. Chemistry: Sodium 140, potassium 3.8, chloride 104, CO2 of 29. BUN 16, creatinine 1.1. Blood sugar of 245. Wound culture is positive for corynebacterium species and foot wound has Klebsiella pneumoniae. ASSESSMENT: 1. Status post right tibial popliteal bypass. 2. Severe peripheral vascular disease. 3. Status post left below-knee amputation. 4. Hypertension. 5. Left foot third and fifth toe diabetic ulcer. 6. Hypertension. 7. Hyperlipidemia. PLAN: The patient is clinically stable. Hemoglobin is stable. The patient is awaiting diabetic shoe for his right foot that is offloaded and we can start him on physical therapy. He is a good candidate to go to [facility] for gait training. So currently, the patient is on vancomycin and Zosyn. We will continue that. So, plan is once patient gets his shoe for the operated foot, we can transfer him to [facility] accepted to continue his course of antibiotic including Zosyn and need rehab. Once his shoe arrives, he can be transferred to [facility]. will take care of his wound and will finish antibiotics. Berhane Keller MD
--- NOTE | 2017-06-24 19:59 | PN ---
DATE: 06/24/2017 REASON FOR THE CONSULTATION AND FOLLOWUP: Preop evaluation, risk stratification, and postop followup. SUBJECTIVE: The patient denies any chest pain, shortness of breath, or any palpitation. PHYSICAL EXAMINATION: GENERAL: Not in any apparent distress. VITAL SIGNS: Temperature afebrile, heart rate 76, blood pressure 145/68. HEENT: PERRLA. Extraocular muscles intact. NECK: Supple. No carotid bruit. No thyromegaly. CHEST: Clear to auscultation. HEART: S1 and S2 regular. ABDOMEN: Soft. EXTREMITIES: Clubbing and cyanosis negative. LABORATORY DATA: Blood workup as follows: WBC 8, hemoglobin , hematocrit 27.8, platelet count 305. Chemistry shows sodium 140, potassium 3.8, chloride 104, carbon dioxide 28, anion gap of 11, BUN 16, creatinine 1.1. IMPRESSION: Severe peripheral arterial disease, status post right popliteal tibial bypass; status post amputation of the third digit, right. Had a negative stress test preoperative. Echocardiography, also preserved left ventricular function. Diabetes, hypertension, hyperlipidemia. Recommend to continue beta alireza. Continue losartan. Continue atorvastatin. CVS status is stable. Consider TCU. We will sign off and glad to follow up p.r.n. Thank you, Dr. Keller, for providing us the opportunity in taking care of the patient, Prasad Perera Jr. Interim, continue beta alireza, atorvastatin, aspirin. Lifestyle modification for risk factor for coronary artery disease. We will discontinue telemetry also. Rosita Marsh MD
[2017-06-25] MEDS ORDERED: Vancomycin 1gm in NS 250ml 1 GM/250 ML BAG IVPB SCH (04:50)
[2017-06-25] MEDS: Piperacillin/Tazobact 3.375 gm 100 ML IVPB SCH ×2 (05:53→11:13)
[2017-06-25] MEDS: Pantoprazole 40 mg EC Tab PO SCH (06:11)
[2017-06-25 06:27] LABS: HEMOGLOBIN 8.4 g/dL (14.0-18.0); MEAN CELL VOLUME 84.9 fl (80.0-105.0); MEAN CORPUSCULAR HEMOGLOBIN 27.5 pg (25.0-35.0); MEAN CORPUSCULAR HGB CONC 32.4 g/dl (31.0-37.0); MEAN PLATELET VOLUME 10.2 fl (7.0-11.0); RBC 3.05 10^6/uL (3.5-6.1); RED CELL DISTRIBUTION WIDTH 14.4 % (11.5-14.5); WHITE BLOOD COUNT 8.2 10^3/ul (4.5-11.0)
[2017-06-25 06:45] LABS: ALBUMIN 2.7 g/dL (3.0-4.8); ALT/SGPT 36 U/L (7-56); AST/SGOT 30 U/L (17-59); BLOOD UREA NITROGEN 18 mg/dL (7-21); CALCIUM 8.9 mg/dL (8.4-10.5); GFR AFRICAN-AMERICAN > 60; GFR NON-AFRICAN AMERICAN > 60
[2017-06-25] MEDS: Insulin Lispro (humaLOG) MEDIUM Coverage SC SCH ×2 (08:06→12:47)
[2017-06-25 08:17] VITALS: BP 125/67; PULSE 70; RESP 18; TEMP 97.9; O2SAT 97
--- NOTE | 2017-06-25 09:57 | CP.PCM.PN ---
Subjective - Date & Time of Evaluation Date of Evaluation: 06/25/17 Time of Evaluation: 09:48 - Subjective Subjective: Surgery Progress Note: Patient seen and examined at bedside. No acute events overnight. Patient states that he is doing well. Denies fever, chills, decreased sensation or motor strength. Objective - Vital Signs/Intake and Output Vital Signs (last 24 hours): Temp Pulse Resp BP Pulse Ox 97.9 F 70 18 125/67 97 06/25/17 08:17 06/25/17 08:17 06/25/17 08:17 06/25/17 08:17 06/25/17 08:17 Intake and Output: 06/25/17 06/25/17 06:59 18:59 Intake Total 810 Output Total 1050 Balance -240 - Medications Medications: Current Medications Aspirin (Ecotrin) 81 mg PO DAILY [facility] Last Admin: 06/24/17 10:02 Dose: 81 mg Atorvastatin Calcium (Lipitor) 10 mg PO HS [facility] Last Admin: 06/24/17 21:41 Dose: 10 mg Benzocaine/Menthol (Cepacol Sore Throat) 1 main MT Q2H PRN PRN Reason: Sore Throat Last Admin: 06/20/17 00:09 Dose: 1 main Famotidine (Pepcid) 20 mg PO 1000,2200 [facility] Last Admin: 06/24/17 21:41 Dose: 20 mg Hydrochlorothiazide (Microzide) 12.5 mg PO DAILY [facility] Last Admin: 06/18/17 09:10 Dose: Not Given Piperacillin Sod/Tazobactam Sod (Zosyn 3.375 In Ns 100ml) 100 mls @ 200 mls/hr IVPB Q6 [facility] PRN Reason: Protocol Stop: 06/28/17 12:01 Last Admin: 06/25/17 05:53 Dose: 200 mls/hr Vancomycin HCl (Vancomycin 1gm) 1 gm in 250 mls @ 167 mls/hr IVPB 0600,1800 [facility] PRN Reason: Protocol Last Admin: 06/25/17 05:54 Dose: 167 mls/hr Insulin Human Lispro (Humalog Med) 0 units SC ACHS [facility] PRN Reason: Protocol Last Admin: 06/24/17 21:49 Dose: Not Given Insulin Lispro Protam/Lispro Human (Humalog Mix 75/25) 30 units SC QAM [facility] Last Admin: 06/24/17 10:01 Dose: Not Given Insulin Lispro Protam/Lispro Human (Humalog Mix 75/25) 20 units SC HS [facility] Last Admin: 06/24/17 21:58 Dose: 20 units Losartan Potassium (Cozaar) 100 mg PO DAILY [facility] Last Admin: 06/18/17 09:10 Dose: Not Given Metformin HCl (Glucophage) 500 mg PO ACBD [facility] Last Admin: 06/25/17 08:29 Dose: 500 mg Metoprolol Tartrate (Lopressor) 25 mg PO BID [facility] Last Admin: 06/24/17 17:18 Dose: 25 mg Ondansetron HCl (Zofran Inj) 4 mg IVP Q6H PRN PRN Reason: Nausea/Vomiting Pantoprazole Sodium (Protonix Ec Tab) 40 mg PO 0600 [facility] Last Admin: 06/25/17 06:11 Dose: 40 mg Potassium Phos/Sodium Phos (Neutra-Phos) 1 pkt PO BID [facility] Last Admin: 06/24/17 17:25 Dose: 1 pkt Sitagliptin Phosphate (Januvia) 50 mg PO DAILY [facility] Last Admin: 06/18/17 09:10 Dose: Not Given - Labs Labs: 06/25/17 05:30 06/25/17 05:30 PT 14.2 SECONDS (9.4-12.5) H 06/18/17 05:30 INR 1.23 (0.93-1.08) H 06/18/17 05:30 APTT 28.9 Seconds (25.1-36.5) 06/18/17 05:30 - Constitutional Appears: Non-toxic, No Acute Distress - Head Exam Head Exam: ATRAUMATIC, NORMOCEPHALIC - Eye Exam Eye Exam: EOMI, PERRL. absent: Conjunctival injection, Nystagmus, Scleral icterus Pupil Exam: NORMAL ACCOMODATION, PERRL. absent: Fixed, Irregular, Unequal - ENT Exam ENT Exam: Mucous Membranes Moist - Neck Exam Neck Exam: Full ROM - Respiratory Exam Respiratory Exam: Clear to Ausculation Bilateral, NORMAL BREATHING PATTERN. absent: Rales, Rhonchi, Wheezes - Cardiovascular Exam Cardiovascular Exam: RRR, +S1, +S2. absent: Murmur - GI/Abdominal Exam GI & Abdominal Exam: Soft, Normal Bowel Sounds - Extremities Exam Additional comments: L BKA. R foot has dressing C/D/I. distal pulses dopplerable. Graft dopplerable. - Back Exam Back Exam: NORMAL INSPECTION - Neurological Exam Neurological Exam: Alert, Awake, Oriented x3 - Psychiatric Exam Psychiatric exam: Normal Affect, Normal Mood - Skin Skin Exam: Dry, Normal Color, Warm Assessment and Plan - Assessment and Plan (Free Text) Assessment: 66M w. PVD, s/p R popliteal-posterior tibial bypass, POD#7: -encourage OOB to chair -PT/OT as tolerated -Encourage IS use -will remove fidencio POD#14 -will continue to follow -Will d/w attending
[2017-06-25] MEDS: Insulin Lispro (humaLOG) MIX 75/25(10 ml) SC SCH (11:07)
[2017-06-25] MEDS: Potassium & Sodium Phosphate PO SCH (11:13)
[2017-06-25] MEDS ORDERED: Iron Sucrose 100 mg/5 ml Inj IVP ONE (12:07)
--- NOTE | 2017-06-25 13:10 | RAD ---
HISTORY: PICC line placement COMPARISON: No prior. FINDINGS: LUNGS: No active pulmonary disease. PLEURA: No significant pleural effusion identified, no pneumothorax apparent. CARDIOVASCULAR: Normal. OSSEOUS STRUCTURES: No significant abnormalities. VISUALIZED UPPER ABDOMEN: Normal. OTHER FINDINGS: None. IMPRESSION: Satisfactory position of right PICC line near the caval atrial junction
--- NOTE | 2017-06-25 15:28 | CP.PCM.PN ---
<Gemma Blake - Last Filed: 06/25/17 15:24> Subjective - Date & Time of Evaluation Date of Evaluation: 06/25/17 Time of Evaluation: 15:25 - Subjective Subjective: Podiatry Progress note: Dr. Gil 66 y/o diabetic male seen at bedside this morning with attending Dr. Gil, 5 days s/p right foot partial 3rd digit amputation. Patient is AAOx3 and is in NAD. Patient appears to be resting comfortably in his bed. States he is not in any pain today. Admits to working with physical therapy and ambulating with a surgical shoe on the right foot. States he will be discharged today to [facility]. Denies F/C/N/V/CP/SOB. Has no other pedal complaints. Objective - Vital Signs/Intake and Output Vital Signs (last 24 hours): Temp Pulse Resp BP Pulse Ox 97.9 F 70 18 125/67 97 06/25/17 08:17 06/25/17 11:13 06/25/17 08:17 06/25/17 11:13 06/25/17 08:17 Intake and Output: 06/25/17 06/25/17 06:59 18:59 Intake Total 810 925 Output Total 1050 1150 Balance -240 -225 - Medications Medications: Current Medications Aspirin (Ecotrin) 81 mg PO DAILY [facility] Last Admin: 06/25/17 14:46 Dose: 81 mg Atorvastatin Calcium (Lipitor) 10 mg PO HS [facility] Last Admin: 06/24/17 21:41 Dose: 10 mg Benzocaine/Menthol (Cepacol Sore Throat) 1 main MT Q2H PRN PRN Reason: Sore Throat Last Admin: 06/20/17 00:09 Dose: 1 main Famotidine (Pepcid) 20 mg PO 1000,2200 [facility] Last Admin: 06/25/17 11:13 Dose: 20 mg Hydrochlorothiazide (Microzide) 12.5 mg PO DAILY [facility] Last Admin: 06/18/17 09:10 Dose: Not Given Piperacillin Sod/Tazobactam Sod (Zosyn 3.375 In Ns 100ml) 100 mls @ 200 mls/hr IVPB Q6 MUKESH PRN Reason: Protocol Stop: 07/19/17 12:01 Last Admin: 06/25/17 11:13 Dose: 200 mls/hr Vancomycin HCl (Vancomycin 1gm) 1 gm in 250 mls @ 167 mls/hr IVPB 0600,1800 [facility] PRN Reason: Protocol Stop: 07/23/17 04:51 Last Admin: 06/25/17 05:54 Dose: 167 mls/hr Insulin Human Lispro (Humalog Med) 0 units SC ACHS [facility] PRN Reason: Protocol Last Admin: 06/25/17 12:47 Dose: Not Given Insulin Lispro Protam/Lispro Human (Humalog Mix 75/25) 30 units SC QAM [facility] Last Admin: 06/25/17 11:07 Dose: Not Given Insulin Lispro Protam/Lispro Human (Humalog Mix 75/25) 20 units SC HS [facility] Last Admin: 06/24/17 21:58 Dose: 20 units Losartan Potassium (Cozaar) 100 mg PO DAILY [facility] Last Admin: 06/18/17 09:10 Dose: Not Given Metformin HCl (Glucophage) 500 mg PO ACBD [facility] Last Admin: 06/25/17 08:29 Dose: 500 mg Metoprolol Tartrate (Lopressor) 25 mg PO BID [facility] Last Admin: 06/25/17 11:13 Dose: 25 mg Ondansetron HCl (Zofran Inj) 4 mg IVP Q6H PRN PRN Reason: Nausea/Vomiting Pantoprazole Sodium (Protonix Ec Tab) 40 mg PO 0600 [facility] Last Admin: 06/25/17 06:11 Dose: 40 mg Potassium Phos/Sodium Phos (Neutra-Phos) 1 pkt PO BID [facility] Last Admin: 06/25/17 11:13 Dose: 1 pkt Sitagliptin Phosphate (Januvia) 50 mg PO DAILY [facility] Last Admin: 06/18/17 09:10 Dose: Not Given - Labs Labs: 06/25/17 05:30 06/25/17 05:30 PT 14.2 SECONDS (9.4-12.5) H 06/18/17 05:30 INR 1.23 (0.93-1.08) H 06/18/17 05:30 APTT 28.9 Seconds (25.1-36.5) 06/18/17 05:30 - Constitutional Appears: Well, Non-toxic, No Acute Distress - Extremities Exam Additional comments: LLE BKA RLE focused exam: Vasc: DP/PT pulses palpable 1/4. Temperature gradient warm to warm. CFT < 3 sec x 4 digits; CFT WNL to 3rd digit amputation site. Minimal localized edema noted to 3rd digit surgical site Derm: Surgical site noted to 3rd digit proximal phalanx at site of partial digital amputation. Sutures are intact with no signs of dehiscence. Skin edges are well-coapted. Sandie wound exhibits minimal erythema. No purulence, no drainage, no fluctuance, no malodor noted. Additional ulceration noted to dorsomedial aspect of right foot 5th digit with fibrogranular wound base - no malodor, no fluctuance, no probe to bone, no drainage expressed, no tunneling or undermining. Neuro: Protective sensation grossly diminished Ortho: No tenderness noted to palpation of right foot at 3rd digit amputation site - Neurological Exam Neurological Exam: Alert, Awake, Oriented x3 - Psychiatric Exam Psychiatric exam: Normal Affect, Normal Mood Assessment and Plan - Assessment and Plan (Free Text) Assessment: 66 y/o diabetic male 5 days s/p right foot partial 3rd digit amputation, with additional right foot 5th digit diabetic ulcer Plan: Pt seen and evaluated at bedside with Dr. Gil Labs and vitals reviewed - afebrile, WBC 8.2 Surgical site and 5th digit ulcer cleaned with saline Dressed surgical site and 5th digit ulceration with adaptic and DSD Continue PT with surgical shoe to R foot for protected WB Wound and bone cultures from OR - Corynebacterium species Continue IV abx as per [facility] - Alesha Toussaint Pt stable for d/c from podiatry standpoint Pt to follow up in wound care center with Dr. Zeng/Jeffery within 1 week of discharge Wound care instructions for [facility] -surgical site and 5th digit ulcers to be cleansed with saline -adaptic to both 3rd and 5th digits with DSD to R foot; no PREET or compression dressing <Nicolas Gil - Last Filed: 06/26/17 11:26> Objective - Vital Signs/Intake and Output Vital Signs (last 24 hours): Temp Pulse Resp BP Pulse Ox 97.9 F 70 18 125/67 97 06/25/17 08:17 06/25/17 11:13 06/25/17 08:17 06/25/17 11:13 06/25/17 08:17 - Labs Labs: 06/25/17 05:30 06/25/17 05:30 PT 14.2 SECONDS (9.4-12.5) H 06/18/17 05:30 INR 1.23 (0.93-1.08) H 06/18/17 05:30 APTT 28.9 Seconds (25.1-36.5) 06/18/17 05:30 Attending/Attestation - Attestation I have personally seen and examined this patient.: Yes I have fully participated in the care of the patient.: Yes I have reviewed all pertinent clinical information, including history, physical exam and plan: Yes
--- NOTE | 2017-06-25 22:15 | PN ---
DATE: 06/25/2017 SUBJECTIVE: The patient is in bed, in no acute distress, was seen early this morning in room 367, bed 2. No fevers. No chills. PHYSICAL EXAMINATION: VITAL SIGNS: Temperature is 97, blood pressure is 125/60, respiratory rate of 18. HEENT: Unremarkable. NECK: Supple. LUNGS: Have decreased breath sounds. HEART: Normal S1, S2. ABDOMEN: Soft, nontender. LABORATORY EXAMINATION: Reveals a white of count of 8.2, hemoglobin of 8, BUN of 18, creatinine of 1.2. Urinalysis is noted. Microbiology is noted, corynebacterium in 2 cultures, and Klebsiella in the foot culture. ASSESSMENT AND PLAN: A 66-year-old male, who was seen early this morning in room 367, bed . He had a chest x-ray this morning, which was reported to be negative. The right chronic foot wound infection with osteomyelitis on MRI in a patient with peripheral vascular disease, status post tibial bypass graft, post day #7, status post amputation of third digit postop day #5, margins still showing acute osteomyelitis in a patient with hypertensive, diabetic, will need 4 to 6 weeks of antibiotics. He is on vancomycin, Zosyn with vancomycin trough levels and CBC, SMA-18, sed rate, C-reactive protein at least once weekly. Close monitoring of his renal function with vancomycin. Case discussed with PMD. Thomas Murcia MD
--- NOTE | 2017-06-25 23:01 | OP ---
PROCEDURE DATE: 06/20/2017 SURGEON: Nicolas Gil DPM. FINANCIAL SALES CONSULTANT: Gemma Blake, PGY-1. ANESTHESIA ADMINISTERED BY: Marcin James M.D. TYPE OF ANESTHESIA: IV sedation plus local. PREOPERATIVE DIAGNOSIS: Right foot third digit osteomyelitis. POSTOPERATIVE DIAGNOSIS: Right foot third digit osteomyelitis. NAME OF PROCEDURE: Partial amputation of the right foot third digit. INDICATIONS: The patient is a 66-year-old male with the above diagnosis. The patient has exhausted all conservative treatment at this time and now requires surgical intervention. The patient signed the consent after careful explanation of risks, benefits, complications, and alternatives for surgical procedure. No guarantees were given nor implied. N.p.o. status was confirmed prior to taking the patient to the operating room. PREPARATION: The patient was brought into the operating room and placed on the operating room table in a supine position. Time-out was performed for identification of the correct patient and procedure. After induction of IV sedation, 9 mL of 2% lidocaine plain was administered in a local V-block fashion to the right foot third digit. The right lower extremity was then prepped and draped in normal sterile manner and the procedure began. No tourniquet was used during the procedure. DESCRIPTION OF PROCEDURE: Attention was then directed to the distal aspect of the right foot where a nonhealing infected ulceration was noted, measuring approximately 0.7 cm x 0.5 cm x 0.4 cm. At this time, a sterile 15 blade was used to create a racket-type incision circumferentially around the right foot third digit at the level of the mid shaft of the right foot third middle phalanx. This incision was carried down to the level of bone. A double action bone cutter was utilized to excise the distal half of the right foot third middle phalanx and the distal phalanx and the specimen was passed off the field and sent for pathology. The dissection was continued down to the level of the third digit proximal interphalangeal joint and the joint was disarticulated at this time. The proximal aspect of the third digit middle phalanx was utilized as our proximal clean margin and also sent for pathology. A deep wound culture was also taken at this time. Next, the wound bed and surgical site was copiously irrigated with sterile bacitracin-infused saline. Deep 3-0 Vicryl sutures were utilized to reapproximate subcutaneous tissue and 4-0 nylon sutures were utilized to close the skin. The surgical site was then dressed with Adaptic and a dry sterile dressing. POSTOPERATIVE CONDITION: The patient tolerated the anesthesia and procedure well and was escorted to the recovery room with vital signs stable and neurovascular status intact to the right lower extremity. The patient will remain in the hospital and Podiatry will continue to follow. Upon discharge, the patient is instructed to follow up in the Wound Care [facility] with Dr. Gil within 1 week of discharge. Gemma Blake DPM Nicolas Gil DPM [email or web address]
--- NOTE | 2017-06-26 15:24 | DS ---
HISTORY OF PRESENT ILLNESS: The patient is a 66-year-old who was sent by Dr. Gil because of worsening right foot wound. It was getting more and more swollen and had foul-smelling discharge. Patient does have a significant past medical history of peripheral vascular disease. He was evaluated by Dr. Dacosta and he underwent [id number] bypass. He also underwent right third toe amputation and the margin shows that he has osteomyelitis, so patient is being transferred to [place] to complete his course of antibiotics for four to six weeks. PHYSICAL EXAMINATION GENERAL: On examination today, he is awake, alert, oriented, communicative. VITAL SIGNS: He is afebrile, pulse 70, respirations 18, blood pressure 125/67. LUNGS: Bilateral fair airflow. No rhonchi or crackle. HEART: S1, S2 audible. ABDOMEN: Soft, nontender. No rebound, no guarding. NEUROLOGICAL: He is awake, alert, oriented, communicative. EXTREMITIES: He is status post left BKA and right foot is in the dressing. LABORATORY EXAM: WBC is 8.2, hemoglobin 8.4, hematocrit 25.9, platelets 297,000. Chemistry: Sodium 141, potassium 3.8, chloride 105, CO2 of 29, BUN 18, creatinine 1.2, blood sugar of 86. ASSESSMENT 1. Status post popliteal-tibial bypass. 2. Right third toe amputation. 3. Third toe osteomyelitis. 4. Hypertension. 5. Insulin-dependent diabetes. PLAN: The patient is being transferred to [place] where he will complete his course of Zosyn for four to six weeks and vancomycin for four to six weeks. We will monitor his CRP and ESR and monitor his blood sugar. Follow up patient in ____. Berhane Keller MD
== END 2017-06-25 16:42 | DRG 253 ==
LOC: ED 14:48 → ERH 17:05 → 3RSO 18:26 → CCU 06-18 18:02 → 3RNO 06-21 19:18
PROVIDERS: ADMIT Internal Medicine; ATTEND Internal Medicine
PROC: 06BP0ZZ Excision of Right Saphenous Vein, Open Approach (ICD-10-PCS; 2017-06-18)
PROC: 041M09Q Bypass Right Popliteal Artery to Lower Extremity Artery with Autologous Venous Tissue, Open Approach (ICD-10-PCS; principal; 2017-06-18 10:00)
PROC: 0Y6T0Z2 Detachment at Right 3rd Toe, Mid, Open Approach (ICD-10-PCS; 2017-06-20)
DX: E11.51 Type 2 diabetes mellitus with diabetic peripheral angiopathy without gangrene (principal); M86.171 Other acute osteomyelitis, right ankle and foot; E11.621 Type 2 diabetes mellitus with foot ulcer; E11.622 Type 2 diabetes mellitus with other skin ulcer; E11.69 Type 2 diabetes mellitus with other specified complication; D62 Acute posthemorrhagic anemia; L03.115 Cellulitis of right lower limb; L03.116 Cellulitis of left lower limb; E78.5 Hyperlipidemia, unspecified; I10 Essential (primary) hypertension; Z87.891 Personal history of nicotine dependence; L97.519 Non-pressure chronic ulcer of other part of right foot with unspecified severity; L97.529 Non-pressure chronic ulcer of other part of left foot with unspecified severity; Z79.4 Long term (current) use of insulin; Z79.82 Long term (current) use of aspirin; Z79.899 Other long term (current) drug therapy; Z89.512 Acquired absence of left leg below knee

== ENCOUNTER 2018-04-03 12:45 | Outpatient (CLI) | payer MEDICARE, MEDICAID | END 2018-04-03 12:46 | disposition home or self-care (01) | LOC: RAD 12:45 ==

== ENCOUNTER → 2018-07-08 | Outpatient (CLI) | payer MEDICARE, MEDICAID | LOC: RAD 12:40 ==

== ENCOUNTER 2018-08-19 12:08 | Outpatient (CLI) | payer MEDICARE, MEDICAID | END 2018-08-19 12:09 | disposition home or self-care (01) | LOC: RAD 12:08 ==